=== PATIENT | female | born 1990 | race Caucasian/White ===

== ENCOUNTER 2019-03-27 16:35 | Emergency (ER) | payer OTHER ==
[~2019-03-27] VITALS: Ht 170.2 cm; Wt 122.5 kg
[~2019-03-27 16:35] MED LIST: METFORMIN HCL500 MG PO
--- OUTSIDE RECORDS SUMMARY | 2019-03-27 16:41 | XMS REPORT | Continuity of Care Document ---
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 Name Role Phone [employer] Unavailable Unavailable Problems Problem Status Onset Date Classification Date Reported Comments Source Acute headache 12/08/2018 12/11/2018 [facility] Nausea and vomiting 12/08/2018 12/11/2018 [facility] CHESTPAIN/ DIARREAH Active 12/08/2018 [facility] HEADACHE/VOMITING Active 12/07/2018 [facility] Acute gastroenteritis 10/19/2018 10/22/2018 [facility] Abdominal pain, acute, epigastric 10/19/2018 10/22/2018 [facility] HIGH BP Active 10/19/2018 [facility] Hyperglycemia 10/17/2018 10/20/2018 [facility] Gastroenteritis 10/17/2018 10/20/2018 [facility] Dehydration 10/17/2018 10/20/2018 [facility] VOMITING / STOMACH PAIN Active 10/17/2018 [facility] Complex tear of lateral meniscus, current injury, left knee, initial encounter 08/19/2018 03/05/2019 [facility] Acute upper respiratory infection, unspecified 08/15/2018 02/25/2019 [facility] Pain, chest wall 08/08/2018 02/25/2019 [facility] Acute upper respiratory infection 08/08/2018 02/25/2019 [facility] Viral illness 08/08/2018 02/25/2019 [facility] CHEST PAIN Active 08/08/2018 [facility] LT KNEE (DOS 06/14/18) Active 06/14/2018 [facility] Acute pharyngitis, unspecified 04/18/2018 10/30/2018 [facility] Nasal congestion 04/12/2018 10/30/2018 [facility] Sore throat 04/12/2018 10/30/2018 [facility] SORE THROAT Active 04/12/2018 [facility] Chest pain 01/21/2018 01/24/2018 [facility] Other bursitis of knee, left knee 12/27/2017 03/28/2018 [facility] Viral syndrome 10/28/2017 2018 [facility] Pyelonephritis 10/28/2017 2018 [facility] COUGH Active 10/27/2017 [facility] Contusion of left knee, initial encounter 10/25/2017 01/26/2018 [facility] Discharge Diagnosis: Left flank pain 08/03/2017 08/06/2017 [facility] Discharge Diagnosis: Acute lower urinary tract infection 08/03/2017 08/06/2017 [facility] ABD PAIN Active 08/02/2017 [facility] Discharge Diagnosis: Left knee pain 07/11/2017 07/14/2017 [facility] Discharge Diagnosis: Abrasion, left knee, initial encounter 07/11/2017 07/14/2017 [facility] Discharge Diagnosis: Left ankle pain 07/11/2017 07/14/2017 [facility] LT KNEE Active 07/10/2017 [facility] LEFT KNEE Active 07/10/2017 [facility] LEFT LEG PAIN Active 07/10/2017 [facility] Discharge Diagnosis: Abdominal pain 04/23/2017 04/26/2017 [facility] Discharge Diagnosis: Strep pharyngitis 01/11/2017 01/14/2017 [facility] Discharge Diagnosis: Influenza B 01/11/2017 01/14/2017 [facility] Discharge Diagnosis: Abdominal pain in female 01/11/2017 01/14/2017 [facility] COUGH/CONGESTION Active 01/10/2017 [facility] FLANK PAIN Active 12/17/2016 [facility] Discharge Diagnosis: Abdominal pain in female. 12/03/2016 12/06/2016 [facility] SIDE PAIN Active 12/02/2016 [facility] Discharge Diagnosis: Hyperglycemia, unspecified 03/17/2016 03/20/2016 [facility] Discharge Diagnosis: Headache 03/17/2016 03/20/2016 [facility] Discharge Diagnosis: Essential hypertension 03/17/2016 03/20/2016 [facility] 490 - BRONCHITIS NOS Active 01/07/2012 SIENNA Gaoadena Final: Episodic tension-type headache, intractable 03/20/2016 [facility] Final: Dehydration 03/20/2016 [facility] Final: Type 1 diabetes mellitus with hyperglycemia 03/20/2016 [facility] Final: Essential hypertension 03/20/2016 [facility] Abdominal pain in female Resolved Problem 03/05/2019 GERMÁN Hutchison,[facility] Diabetes Resolved Problem 03/05/2019 GERMÁN Hutchison,[facility] H/O: HTN (Confirmed) Resolved Problem 03/05/2019 GERMÁN Hutchison,[facility] Bucket-handle tear of lateral meniscus, current injury, left knee, initial encounter 01/26/2018 SIENNA Hutchison Viral infection, unspecified 02/25/2019 [facility] Tubulo-interstitial nephritis, not specified as acute or chronic 2018 [facility] Essential hypertension 10/30/2018 [facility] Unspecified mononeuropathy of left lower limb 03/05/2019 [facility] Pain in left knee 03/05/2019 [facility] Other chest pain 02/25/2019 [facility] Type 2 diabetes mellitus without complications 02/25/2019 [facility] 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 10/30/2018 [facility] Medications Medication Details Route Status Patient Instructions Ordering Provider Order Date Source Metoclopramide 10 MG Oral Tablet [Reglan] 10 mg=1 tab, PO, QID-Before Meals, PRN nausea and vomiting, X 10 day, # 40 tab, 0 Refill(s) Active 12/09/2018 [facility] Tylenol 975 mg, Route: PO, Drug form: TAB, ONCE, Dosing Weight 113.636, kg, Priority: STAT, Start date: 12/08/18 19:42:00 CDT, Stop date: 12/08/18 19:42:00 CDT Inactive 12/09/2018 [facility] Compazine 30 mg, Route: IV, ONCE, Dosing Weight 113.636, kg, Start date: 12/08/18 19:42:00 CDT, Stop date: 12/08/18 19:42:00 CDT Inactive 12/09/2018 [facility] Ketorolac 30 mg, 1 mL, Route: IVP, Drug form: INJ, ONCE, Dosing Weight 113.636, kg, Priority: STAT, Start date: 12/08/18 14:20:00 CDT, Stop date: 12/08/18 14:20:00 CDTNotes: (Same as:Toradol) IV bolus must be given >15 seconds. Give IM administration slowly and deeply into the muscle. Not for use > 4 days MEDICATION WASTE Product Size: 30 mg Product Wasted: ___ mg Inactive 12/08/2018 [facility] NS (Bolus) IV 1,000 mL, 1,000 ml/hr, Infuse Over: 1 hr, Route: IV, 1,000, Drug form: INJ, ONCE, Priority: STAT, Dosing Weight 113.636 kg, Start date: 12/08/18 14:19:00 CDT, Stop date: 12/08/18 14:19:00 CDT Inactive 12/08/2018 [facility] Zofran 4 mg, 2 mL, Route: IVP, Drug form: INJ, ONCE, Dosing Weight 113.636, kg, Priority: STAT, Start date: 12/08/18 14:19:00 CDT, Stop date: 12/08/18 14:19:00 CDTNotes: (Same as: Zofran) MEDICATION WASTE Product Size: 4 mg Product Wasted: ___ mg Inactive 12/08/2018 [facility] Acetaminophen 300 MG / Codeine Phosphate 30 MG Oral Tablet [Tylenol with Codeine #3] 1 tab, PO, Q6H, PRN Pain, no Driving while under the influence of this medication, X 3 day, # 12 tab, 0 Refill(s) Active 10/19/2018 [facility] Acetaminophen 325 MG / Hydrocodone Bitartrate 5 MG Oral Tablet [Stonewall 5/325] 1 tab, Route: PO, Drug Form: TAB, Dosing Weight 109.091, kg, ONCE, STAT, Start date: 10/19/18 16:10:00 BINDERY WORKER, Stop date: 10/19/18 16:10:00 CSTNotes: (Same as: Stonewall 325/5) Do not exceed 4gm/day of acetaminophen. Inactive 10/19/2018 [facility] Sodium Chloride 0.9% (Bolus) IV 1,000 mL, 1000 ml/hr, Infuse Over: 1 hr, Route: IV, 1,000, Drug form: INJ, ONCE, Priority: STAT, Dosing Weight 109.091 kg, Start date: 10/19/18 15:41:00 BINDERY WORKER, Stop date: 10/19/18 15:41:00 BINDERY WORKER Inactive 10/19/2018 [facility] Morphine 4 mg, 1 mL, Route: IVP, Drug form: SOLN, ONCE, Dosing Weight 109.091, kg, Priority: STAT, Start date: 10/19/18 13:47:00 BINDERY WORKER, Stop date: 10/19/18 13:47:00 CSTNotes: (Same as:MORPhine Sulfate) Inactive 10/19/2018 [facility] Zofran 4 mg, Route: IVP, Drug form: INJ, ONCE, Dosing Weight 109.091, kg, Priority: STAT, Start date: 10/19/18 13:05:00 BINDERY WORKER, Stop date: 10/19/18 13:05:00 BINDERY WORKER Inactive 10/19/2018 [facility] Sodium Chloride 0.9% (Bolus) IV 1,000 mL, Infuse Over: 1 hr, Route: IV, ONCE, Priority: STAT, Dosing Weight 109.091 kg, Start date: 10/19/18 13:00:00 BINDERY WORKER, Stop date: 10/19/18 13:00:00 BINDERY WORKER Inactive 10/19/2018 [facility] Metoclopramide 5 MG Oral Tablet [Reglan] 5 mg=1 tab, PO, Q6H, X 7 day, # 28 tab, 0 Refill(s) Active 10/17/2018 [facility] Insulin regular 5 unit, 0.05 mL, Route: SUB-Q, Drug form: INJ, ONCE, Dosing Weight 109.091, kg, Priority: STAT, Start date: 10/17/18 11:18:00 BINDERY WORKER, Stop date: 10/17/18 11:18:00 CSTNotes: (Same as: Humulin R and NovoLIN R) WASTE: F/P - Black; E - Municipal Trash Bin (Do not shake) Inactive 10/17/2018 [facility] Morphine 2 mg, Route: IVP, ONCE, Dosing Weight 109.091, kg, Priority: STAT, Start date: 10/17/18 10:23:00 BINDERY WORKER, Stop date: 10/17/18 10:23:00 BINDERY WORKER Inactive 10/17/2018 [facility] Metoclopramide 10 mg, 2 mL, Route: IVP, Drug form: INJ, ONCE, Dosing Weight 109.091, kg, Priority: STAT, Start date: 10/17/18 9:08:00 BINDERY WORKER, Stop date: 10/17/18 9:08:00 CSTNotes: (Same as: Reglan) Inactive 10/17/2018 [facility] GI cocktail (aluminum hydroxide/magnesium hydroxide/lidocaine/simethicone) 30 mL, Route: PO, Dosing Weight 109.091, kg, ONCE, STAT, Start date: 10/17/18 9:08:00 BINDERY WORKER, Stop date: 10/17/18 9:08:00 BINDERY WORKER Inactive 10/17/2018 [facility] pantoprazole 40 mg, Route: IVP, Drug form: INJ, ONCE, Dosing Weight 109.091, kg, For IV push reconstitute with 10 ml 0.9% sodium chloride and push over at least 3 minutes, Priority: STAT, Start date: 10/17/18 9:08:00 BINDERY WORKER, Stop date: 10/17/18 9:08:00 CSTNotes: For IV push reconstitute with 10 ml 0.9% sodium chloride and push over 2 minutes. (Same as: Protonix) Inactive 10/17/2018 [facility] Sodium Chloride 0.9% (Bolus) IV 1,000 mL, 1000 ml/hr, Infuse Over: 1 hr, Route: IV, 1,000, Drug form: INJ, ONCE, Priority: STAT, Dosing Weight 109.091 kg, Start date: 10/17/18 9:08:00 BINDERY WORKER, Stop date: 10/17/18 9:08:00 BINDERY WORKER Inactive 10/17/2018 [facility] Saline Flush 0.9% 10 mL, Route: IVP, Drug Form: INJ, Dosing Weight 109.091, kg, PRN, PRN Line Flush, Start date: 10/17/18 9:08:00 BINDERY WORKER, Duration: 30 day, Stop date: 11/16/18 9:07:00 CSTNotes: (Same as: BD Posiflush) Inactive 10/17/2018 [facility] NS (Bolus) IV 1,000 mL, 1,000 ml/hr, Infuse Over: 1 hr, Route: IV, 1,000, Drug form: INJ, ONCE, Priority: STAT, Dosing Weight 109.091 kg, Start date: 10/17/18 9:08:00 BINDERY WORKER, Stop date: 10/17/18 9:08:00 BINDERY WORKER Inactive 10/17/2018 [facility] 12 HR Fexofenadine hydrochloride 60 MG / Pseudoephedrine Hydrochloride 120 MG Extended Release Tablet [Viviana-D 12 Hour] 1 tab, PO, Q12H, X 5 day, # 10 tab, 0 Refill(s) No Longer Active 08/09/2018 [facility] ibuprofen 600 mg oral tablet 600 mg=1 tab, PO, Q6H, PRN Pain, take with food, X 3 day, # 15 tab, 0 Refill(s) No Longer Active 08/09/2018 [facility] Motrin 800 mg, 2 tab, Route: PO, Drug form: TAB, ONCE, Dosing Weight 127.273, kg, Priority: STAT, Start date: 08/08/18 16:21:00 BINDERY WORKER, Stop date: 08/08/18 16:21:00 CSTNotes: (Same as: Motrin) "Do Not Crush" Give with food. Inactive 08/08/2018 [facility] Sodium Chloride 0.9% (Bolus) IV 1,000 mL, 1,000 ml/hr, Infuse Over: 1 hr, Route: IV, 1,000, Drug form: INJ, ONCE, Priority: STAT, Dosing Weight 127.273 kg, Start date: 08/08/18 15:58:00 BINDERY WORKER, Stop date: 08/08/18 15:58:00 BINDERY WORKER Inactive 08/08/2018 [facility] Fluticasone propionate 0.05 MG/ACTUAT Metered Dose Nasal Reading [Flonase] 2 spray, NASAL, Daily, in each nostril, # 16 gm, 1 Refill(s) Active 04/12/2018 [facility] benzonatate 200 MG Oral Capsule [Tessalon] 200 mg=1 cap, PO, TID, X 10 day, # 30 cap, 0 Refill(s) No Longer Active 04/12/2018 [facility] Dexamethasone 10 mg, 2.5 mL, Route: IM, Drug form: INJ, ONCE, Dosing Weight 113.636, kg, Priority: STAT, Start date: 04/12/18 16:34:00 CDT, Stop date: 04/12/18 16:34:00 CDT Inactive 04/12/2018 [facility] Naproxen 500 MG Oral Tablet [Naprosyn] 500 mg=1 tab, PO, BID, PRN Pain, X 7 day, # 14 tab, 0 Refill(s), Pharmacy: [facility]/pharmacy #[id number] Active 01/21/2018 [facility] NS (Bolus) IV 1,000 mL, 1,000 ml/hr, Infuse Over: 1 hr, Route: IV, ONCE, Priority: STAT, Dosing Weight 113.636 kg, Start date: 01/21/18 7:26:00 CDT, Stop date: 01/21/18 7:26:00 CDT Inactive 01/21/2018 [facility] Ketorolac 30 mg, Route: IVP, Drug form: INJ, ONCE, Dosing Weight 113.636, kg, Priority: STAT, Start date: 01/21/18 7:25:00 CDT, Stop date: 01/21/18 7:25:00 CDT Inactive 01/21/2018 [facility] Saline Flush 0.9% 10 mL, Route: IVP, Drug Form: INJ, Dosing Weight 113.636, kg, PRN, PRN Line Flush, Start date: 01/21/18 4:34:00 CDT, Duration: 30 day, Stop date: 02/20/18 4:33:00 CDTNotes: (Same as: BD Posiflush) Inactive 01/21/2018 [facility] Fluconazole 150 MG Oral Tablet [Diflucan] 150 mg=1 tab, PO, ONCE, # 1 tab, 0 Refill(s) Active 10/28/2017 [facility] tramadol hydrochloride 50 MG Oral Tablet 50 mg=1 tab, PO, Q6H, PRN Pain, X 3 day, # 12 tab, 0 Refill(s) No Longer Active 10/28/2017 [facility] Cephalexin 500 MG Oral Capsule [Keflex] 500 mg=1 cap, PO, QID, X 14 day, # 56 cap, 0 Refill(s) No Longer Active 10/28/2017 [facility] benzonatate 100 MG Oral Capsule [Tessalon Perles] 100 mg=1 cap, PO, Q8H, PRN cough, do not crush or chew, X 10 day, # 30 cap, 0 Refill(s) No Longer Active 10/28/2017 [facility] Zofran ODT 4 mg, Route: PO, Drug form: TABDIS, ONCE, Dosing Weight 122.727, kg, Priority: STAT, Start date: 10/27/17 23:39:00 BINDERY WORKER, Stop date: 10/27/17 23:39:00 BINDERY WORKER Inactive 10/28/2017 [facility] Acetaminophen 325 MG / Hydrocodone Bitartrate 7.5 MG Oral Tablet [Stonewall 7.5/325] 1 tab, Route: PO, Drug Form: TAB, Dosing Weight 122.727, kg, ONCE, STAT, Start date: 10/27/17 23:39:00 BINDERY WORKER, Stop date: 10/27/17 23:39:00 BINDERY WORKER Inactive 10/28/2017 [facility] Sulfamethoxazole 800 MG / Trimethoprim 160 MG Oral Tablet [Bactrim] 1 tab, PO, BID, X 14 day, # 28 tab, 0 Refill(s) Active 08/03/2017 [facility] Ondansetron 4 mg, Route: IVP, Drug form: INJ, ONCE, Dosing Weight 114.545, kg, Priority: STAT, Start date: 08/03/17 3:50:00 BINDERY WORKER, Stop date: 08/03/17 3:50:00 BINDERY WORKER Inactive 08/03/2017 [facility] Morphine 4 mg, Route: IVP, ONCE, Dosing Weight 114.545, kg, Priority: STAT, Start date: 08/03/17 3:50:00 BINDERY WORKER, Stop date: 08/03/17 3:50:00 BINDERY WORKER Inactive 08/03/2017 [facility] Morphine 4 mg, Route: IVP, ONCE, Dosing Weight 114.545, kg, Priority: STAT, Start date: 08/03/17 1:27:00 BINDERY WORKER, Stop date: 08/03/17 1:27:00 BINDERY WORKER Inactive 08/03/2017 [facility] Ondansetron 4 mg, Route: IVP, Drug form: INJ, ONCE, Dosing Weight 114.545, kg, Priority: STAT, Start date: 08/03/17 1:27:00 BINDERY WORKER, Stop date: 08/03/17 1:27:00 BINDERY WORKER Inactive 08/03/2017 [facility] Rocephin 2 gm, Route: IVPB, ONCE, Dosing Weight 114.545, kg, Priority: STAT, Start date: 08/03/17 0:22:00 BINDERY WORKER, Stop date: 08/03/17 0:22:00 BINDERY WORKER, ABX Indication: Urinary Tract InfectionNotes: (Same As: Rocephin). Use with 100 mL NS and infuse over 30 min MEDICATION WASTE Product Size: 2000 mg Product Wasted: ___ mg Inactive 08/03/2017 [facility] Saline Flush 0.9% 10 mL, Route: IVP, Drug Form: INJ, Dosing Weight 114.545, kg, PRN, PRN Line Flush, Start date: 08/02/17 21:33:00 BINDERY WORKER, Duration: 30 day, Stop date: 09/01/17 21:32:00 CSTNotes: (Same as: BD Posiflush) No Longer Active 08/03/2017 [facility] Sodium Chloride 0.9% (Bolus) IV 1,000 mL, 2,000 ml/hr, Infuse Over: 30 minutes, Route: IV, 1,000, Drug form: INJ, ONCE, Priority: STAT, Dosing Weight 114.545 kg, Start date: 08/02/17 21:33:00 BINDERY WORKER, Stop date: 08/02/17 21:33:00 BINDERY WORKER No Longer Active 08/03/2017 [facility] ibuprofen 600 mg oral tablet 600 mg=1 tab, PO, Q6H, PRN Pain or Fever, Take with food, X 10 day, # 40 tab, 0 Refill(s) Active 07/11/2017 [facility] Acetaminophen 325 MG / Hydrocodone Bitartrate 10 MG Oral Tablet [Stonewall 10/325] 1 tab, Route: PO, Drug Form: TAB, Dosing Weight 115.909, kg, ONCE, STAT, Start date: 07/10/17 21:45:00 CDT, Stop date: 07/10/17 21:45:00 CDTNotes: Do not exceed 4gm/day of acetaminophen. (Same as: Stonewall 325/10) No Longer Active 07/11/2017 [facility] tramadol hydrochloride 50 MG Oral Tablet [Ultram] 50 mg=1 tab, PO, Q4H, PRN pain, X 3 day, # 20 tab, 0 Refill(s) Active 04/23/2017 [facility] Zofran 4 mg, Route: IVP, Drug form: INJ, ONCE, Dosing Weight 118.182, kg, Priority: STAT, Start date: 04/23/17 4:05:00 CDT, Stop date: 04/23/17 4:05:00 CDT Inactive 04/23/2017 [facility] Morphine 4 mg, Route: IVP, ONCE, Dosing Weight 118.182, kg, Priority: STAT, Start date: 04/23/17 4:05:00 CDT, Stop date: 04/23/17 4:05:00 CDT Inactive 04/23/2017 [facility] NS (Bolus) IV 1,000 mL, 1,000 ml/hr, Infuse Over: 1 hr, Route: IV, 1,000, Drug form: INJ, ONCE, Priority: STAT, Dosing Weight 118.182 kg, Start date: 04/23/17 0:40:00 CDT, Duration: 1 doses or times, Stop date: 0:40:00 CDT Inactive 04/23/2017 [facility] Zofran 4 mg, 2 mL, Route: IVP, Drug form: INJ, ONCE, Dosing Weight 118.182, kg, Priority: STAT, Start date: 04/23/17 0:40:00 CDT, Stop date: 04/23/17 0:40:00 CDTNotes: (Same as: Zofran) MEDICATION WASTE Product Size: 4 mg Product Wasted: ___ mg Inactive 04/23/2017 [facility] Morphine 4 mg, 1 mL, Route: IVP, Drug form: SOLN, ONCE, Dosing Weight 118.182, kg, Priority: STAT, Start date: 04/23/17 0:40:00 CDT, Stop date: 04/23/17 0:40:00 CDTNotes: (Same as:MORPhine Sulfate) Inactive 04/23/2017 [facility] Saline Flush 0.9% 10 mL, Route: IVP, Drug Form: INJ, Dosing Weight 118.182, kg, PRN, PRN Line Flush, Start date: 04/22/17 22:57:00 CDT, Duration: 30 day, Stop date: 05/22/17 22:56:00 CDTNotes: (Same as: BD Posiflush) No Longer Active 04/23/2017 [facility] Motrin 800 mg oral tablet 800 mg=1 tab, PO, Q8H, PRN Pain, Take with food, X 5 day, # 15 tab, 0 Refill(s) Active 01/11/2017 [facility] Amoxicillin 875 MG / Clavulanate 125 MG Oral Tablet [Augmentin 875-mg] 875 mg=1 tab, PO, Q12H, X 7 day, # 14 tab, 0 Refill(s) Active 01/11/2017 [facility] Sodium Chloride 0.154 MEQ/ML Injectable Solution 1,000 mL, 1,000 ml/hr, Infuse Over: 1 hr, Route: IV, 1,000, Drug form: INJ, ONCE, Priority: STAT, Dosing Weight 118.182 kg, Start date: 01/10/17 21:26:00 CDT, Duration: 1 doses or times, Stop date: 01/10/17 21:26:00 CDT Inactive 01/11/2017 [facility] Ibuprofen 800 mg, 2 tab, Route: PO, Drug form: TAB, ONCE, Dosing Weight 118.182, kg, Priority: STAT, Start date: 01/10/17 19:25:00 CDT, Stop date: 01/10/17 19:25:00 CDTNotes: (Same as: Motrin) "Do Not Crush" Give with food. Inactive 01/11/2017 [facility] Zofran 4 mg, 2 mL, Route: IVP, Drug form: INJ, ONCE, Dosing Weight 118.182, kg, Priority: STAT, Start date: 01/10/17 19:25:00 CDT, Stop date: 01/10/17 19:25:00 CDTNotes: (Same as: Zofran) MEDICATION WASTE Product Size: 4 mg Product Wasted: ___ mg Inactive 01/11/2017 [facility] Sodium Chloride 0.154 MEQ/ML Injectable Solution 1,000 mL, 1,000 ml/hr, Infuse Over: 1 hr, Route: IV, 1,000, Drug form: INJ, ONCE, Priority: STAT, Dosing Weight 118.182 kg, Start date: 01/10/17 19:25:00 CDT, Duration: 1 doses or times, Stop date: 01/10/17 19:25:00 CDT Inactive 01/11/2017 [facility] Phenergan 25 mg oral tablet 25 mg=1 tab, PO, Q6H, PRN Nausea, X 4 day, # 15 tab, 0 Refill(s) Active 12/18/2016 [facility] Ranitidine 150 MG Oral Tablet [Zantac] 150 mg=1 tab, PO, BID, # 60 tab, 0 Refill(s) Active 12/18/2016 [facility] Dicyclomine Hydrochloride 20 MG Oral Tablet [Bentyl] 20 mg=1 tab, PO, QID-Before Meals, # 28 tab, 0 Refill(s) Active 12/18/2016 [facility] Ondansetron 4 mg, Route: IVP, Drug form: INJ, ONCE, Dosing Weight 117.273, kg, Priority: STAT, Start date: 12/18/16 2:39:00 CDT, Stop date: 12/18/16 2:39:00 CDT Inactive 12/18/2016 [facility] Morphine 4 mg, Route: IVP, ONCE, Dosing Weight 117.273, kg, Priority: STAT, Start date: 12/18/16 2:39:00 CDT, Stop date: 12/18/16 2:39:00 CDT Inactive 12/18/2016 [facility] Sodium Chloride 0.154 MEQ/ML Injectable Solution 1,000 mL, Infuse Over: 1 hr, Route: IV, ONCE, Priority: STAT, Dosing Weight 117.273 kg, Start date: 12/18/16 2:39:00 CDT, Duration: 1 doses or times, Stop date: 12/18/16 2:39:00 CDT Inactive 12/18/2016 [facility] Saline Flush 0.9% 10 mL, Route: IVP, Drug Form: INJ, Dosing Weight 117.273, kg, PRN, PRN Line Flush, Start date: 12/18/16 2:31:00 CDT, Duration: 30 day, Stop date: 01/17/17 2:30:00 CDTNotes: (Same as: BD Posiflush) Inactive 12/18/2016 [facility] tramadol hydrochloride 50 MG Oral Tablet 50 mg=1 tab, PO, Q4H, PRN as needed for pain, X 7 day, # 24 tab, 0 Refill(s) Active 12/03/2016 [facility] Rocephin 250 mg, Route: IM, Drug form: PDR/INJ, ONCE, Dosing Weight 117.273, kg, Priority: STAT, Start date: 12/03/16 6:22:00 CDT, Stop date: 12/03/16 6:22:00 CDT Inactive 12/03/2016 [facility] Azithromycin 1,000 mg, Route: PO, Drug form: TAB, ONCE, Dosing Weight 117.273, kg, Start date: 12/03/16 6:22:00 CDT, Stop date: 12/03/16 6:22:00 CDT Inactive 12/03/2016 [facility] Flagyl 2,000 mg, Route: PO, ONCE, Dosing Weight 117.273, kg, Priority: STAT, Start date: 12/03/16 6:22:00 CDT, Stop date: 12/03/16 6:22:00 CDT Inactive 12/03/2016 [facility] Lidocaine 1 mL, Route: IM, ONCE, Dosing Weight 117.273, kg, Start date: 12/03/16 6:22:00 CDT, Stop date: 12/03/16 6:22:00 CDT Inactive 12/03/2016 [facility] Morphine 4 mg, Route: IVP, ONCE, Dosing Weight 117.273, kg, Priority: STAT, Start date: 12/03/16 4:40:00 CDT, Stop date: 12/03/16 4:40:00 CDT Inactive 12/03/2016 [facility] Morphine 4 mg, Route: IVP, ONCE, Dosing Weight 117.273, kg, Priority: STAT, Start date: 12/03/16 1:46:00 CDT, Stop date: 12/03/16 1:46:00 CDT Inactive 12/03/2016 [facility] Ondansetron 4 mg, Route: IVP, ONCE, Dosing Weight 117.273, kg, Priority: STAT, Start date: 12/03/16 1:46:00 CDT, Stop date: 12/03/16 1:46:00 CDT Inactive 12/03/2016 [facility] Sodium Chloride 0.154 MEQ/ML Injectable Solution 1,000 mL, 2,000 ml/hr, Infuse Over: 30 minutes, Route: IV, ONCE, Priority: STAT, Dosing Weight 117.273 kg, Start date: 12/03/16 1:46:00 CDT, Duration: 1 doses or times, Stop date: 12/03/16 1:46:00 CDT Inactive 12/03/2016 [facility] Saline Flush 0.9% 10 mL, Route: IVP, Drug Form: INJ, Dosing Weight 117.273, kg, PRN, PRN Line Flush, Start date: 12/03/16 1:46:00 CDT, Duration: 30 day, Stop date: 01/02/17 1:45:00 CDTNotes: (Same as: BD Posiflush) Inactive 12/03/2016 [facility] Reglan 10 mg, Route: IVP, Drug form: INJ, ONCE, Dosing Weight 113.636, kg, Priority: STAT, Start date: 03/17/16 11:36:00 CDT, Stop date: 03/17/16 11:36:00 CDT Inactive 03/17/2016 [facility] Ketorolac 30 mg, Route: IVP, Drug form: INJ, ONCE, Dosing Weight 113.636, kg, Priority: STAT, Start date: 03/17/16 11:36:00 CDT, Stop date: 03/17/16 11:36:00 CDT Inactive 03/17/2016 [facility] Insulin regular 5 unit, Route: IV, ONCE, Dosing Weight 113.636, kg, Priority: STAT, Start date: 03/17/16 11:18:00 CDT, Stop date: 03/17/16 11:18:00 CDT Inactive 03/17/2016 [facility] Sodium Chloride 0.154 MEQ/ML Injectable Solution 1,000 mL, 1,000 ml/hr, Infuse Over: 1 Hour, Route: IV, ONCE, Priority: STAT, Dosing Weight 113.636 kg, Start date: 03/17/16 10:53:00 CDT, Duration: 1 doses or times, Stop date: 03/17/16 10:53:00 CDT Inactive 03/17/2016 [facility] Dextrose 50% Syringe 12.5 gm, 25 mL, Route: IVP, Drug Form: INJ, Dosing Weight 113.636, kg, PRN, PRN Blood Glucose Results, Start date: 03/17/16 10:19:00 CDT, Duration: 30 day, Stop date: 04/16/16 10:18:00 CDT Inactive 03/17/2016 [facility] Glucagon 1 mg, Route: IM, Drug form: PDR/INJ, PRN, Dosing Weight 113.636, kg, PRN Blood Glucose Results, Start date: 03/17/16 10:19:00 CDT, Duration: 30 day, Stop date: 04/16/16 10:18:00 CDT Inactive 03/17/2016 [facility] Saline Flush 0.9% 10 mL, Route: IVP, Drug Form: INJ, Dosing Weight 113.636, kg, PRN, PRN Line Flush, Start date: 03/17/16 10:19:00 CDT, Duration: 30 day, Stop date: 04/16/16 10:18:00 CDTNotes: (Same as: BD Posiflush) Inactive 03/17/2016 [facility] Sodium Chloride 0.154 MEQ/ML Injectable Solution 1,000 mL, 2,000 ml/hr, Infuse Over: 30 MINS, Route: IV, ONCE, Priority: STAT, Dosing Weight 113.636 kg, Start date: 03/17/16 10:19:00 CDT, Duration: 1 doses or times, Stop date: 03/17/16 10:19:00 CDT Inactive 03/17/2016 [facility] Allergies, Adverse Reactions, Alerts Substance Category Reaction Severity Reaction type Status Date Reported Comments Source No Known Medication Allergies Assertion Drug allergy [facility] Immunizations No Data Provided for This Section Results Order Name Results Value Reference Range Date Interpretation Comments Source URINE AND STOOL UA RBC 3 0 - 2 12/08/2018 [facility] URINE AND STOOL UA WBC <1 0 - 5 12/08/2018 [facility] URINE AND STOOL UA Bili Negative *NA* (12/08/18 3:59 PM) Negative 12/08/2018 [facility] URINE AND STOOL UA Glucose 500 mg/dL Negative mg/dL 12/08/2018 [facility] URINE AND STOOL UA Ketones Trace *ABN* (12/08/18 3:59 PM) Negative 12/08/2018 [facility] URINE AND STOOL UA pH 6.0 5.0 - 8.0 12/08/2018 [facility] URINE AND STOOL UA Protein Negative (12/08/18 3:59 PM) Negative 12/08/2018 [facility] URINE AND STOOL UA Nitrite Negative (12/08/18 3:59 PM) Negative 12/08/2018 [facility] URINE AND STOOL UA Blood Negative (12/08/18 3:59 PM) Negative 12/08/2018 [facility] URINE AND STOOL UA Urobilinogen <=1.0 mg/dL 0.1 - 1.0 12/08/2018 [facility] URINE AND STOOL UA Spec Grav 1.039 <=1.030 12/08/2018 [facility] URINE AND STOOL UA Leuk Est Negative (12/08/18 3:59 PM) Negative 12/08/2018 [facility] URINE AND STOOL UA Sq Epi Occasional /LPF Few /LPF 12/08/2018 [facility] URINE AND STOOL UA Turbidity Clear (12/08/18 3:59 PM) Clear 12/08/2018 [facility] URINE AND STOOL UA Color Ltyellow 12/08/2018 [facility] URINE CHEM U Preg Negative (12/08/18 3:59 PM) Negative 12/08/2018 [facility] CHEM PANEL Lipase Lvl 95 73 - 393 12/08/2018 [facility] CHEM PANEL eGFR 119 12/08/2018 Result Comment: The eGFR is calculated using the CKD-EPI formula. In most young, healthy individuals the eGFR will be >90 mL/min/1.73m2. The eGFR declines with age. An eGFR of 60-89 may be normal in some populations, particularly the elderly, for whom the CKD-EPI formula has not been extensively validated. Use of the eGFR is not recommended in the following populations:

Individuals with unstable creatinine concentrations, including patients and those with serious co-morbid conditions.

Patients with extremes in muscle mass or diet.

The data above are obtained from the National Kidney Disease Education Program (NKDEP) which additionally recommends that when the eGFR is used in patients with extremes of body mass index for purposes of drug dosing, the eGFR should be multiplied by the estimated BMI. [facility] CHEM PANEL Bili Total 0.7 0.2 - 1.3 12/08/2018 [facility] CHEM PANEL Alk Phos 94 39 - 136 12/08/2018 [facility] CHEM PANEL Potassium Lvl 4.1 3.5 - 5.1 12/08/2018 [facility] CHEM PANEL Chloride Lvl 101 95 - 109 12/08/2018 [facility] CHEM PANEL Total Protein 8.3 6.4 - 8.4 12/08/2018 [facility] CHEM PANEL Sodium Lvl 138 135 - 145 12/08/2018 [facility] CHEM PANEL CO2 27 24 - 32 12/08/2018 [facility] CHEM PANEL Albumin Lvl 3.8 3.5 - 5.0 12/08/2018 [facility] CHEM PANEL Calcium Lvl 8.9 8.5 - 10.5 12/08/2018 [facility] CHEM PANEL ALT 33 0 - 65 12/08/2018 [facility] CHEM PANEL AST 16 0 - 37 12/08/2018 [facility] CHEM PANEL Creatinine Lvl 0.69 0.50 - 1.40 12/08/2018 [facility] CHEM PANEL BUN 10 7 - 22 12/08/2018 [facility] CHEM PANEL Glucose Lvl 326 70 - 99 12/08/2018 [facility] CHEM PANEL AGAP 14.1 10.0 - 20.0 12/08/2018 [facility] CHEM PANEL Globulin 4.5 2.7 - 4.2 12/08/2018 [facility] CHEM PANEL B/C Ratio 14 6 - 25 12/08/2018 [facility] CHEM PANEL A/G Ratio 0.8 0.7 - 1.6 12/08/2018 [facility] Lymphocytes # 4.0 1.0 - 5.5 12/08/2018 [facility] Neutrophils # 6.8 1.5 - 8.1 12/08/2018 [facility] HEMATOLOGY Basophils 0.5 0.0 - 1.0 12/08/2018 [facility] HEMATOLOGY Eosinophils # 0.5 0.0 - 0.5 12/08/2018 [facility] Basophils # 0.1 0.0 - 0.2 12/08/2018 [facility] Monocytes # 0.5 0.0 - 0.8 12/08/2018 [facility] Lymphocytes 33.6 20.0 - 40.0 12/08/2018 [facility] Monocytes 4.0 2.0 - 12.0 12/08/2018 [facility] Eosinophils 4.4 0.0 - 4.0 12/08/2018 [facility] Segs 57.5 45.0 - 75.0 12/08/2018 [facility] Platelet 392 133 - 450 12/08/2018 [facility] MCHC 33.2 32.0 - 36.0 12/08/2018 [facility] RDW 13.1 11.5 - 14.5 12/08/2018 [facility] MCH 27.5 27.0 - 31.0 12/08/2018 [facility] Hct 46.3 36.0 - 48.0 12/08/2018 [facility] MPV 7.5 7.4 - 10.4 12/08/2018 [facility] Hgb 15.4 12.0 - 16.0 12/08/2018 [facility] MCV 82.8 80.0 - 98.0 12/08/2018 [facility] RBC 5.60 4.20 - 5.40 12/08/2018 [facility] WBC 11.8 3.7 - 10.4 12/08/2018 [facility] URINE AND STOOL UA RBC <1 0 - 2 12/08/2018 [facility] URINE AND STOOL UA [place] Yeast Occasional /HPF None Seen /HPF 12/08/2018 [facility] URINE AND STOOL UA Glucose 500 mg/dL Negative mg/dL 12/08/2018 [facility] URINE AND STOOL UA Sq Epi Occasional /LPF Few /LPF 12/08/2018 [facility] URINE AND STOOL UA WBC <1 0 - 5 12/08/2018 [facility] URINE AND STOOL UA Protein Negative (12/08/18 1:17 AM) Negative 12/08/2018 [facility] URINE AND STOOL UA Bili Negative *NA* (12/08/18 1:17 AM) Negative 12/08/2018 [facility] URINE AND STOOL UA Ketones Negative *NA* (12/08/18 1:17 AM) Negative 12/08/2018 [facility] URINE AND STOOL UA Blood Small *ABN* (12/08/18 1:17 AM) Negative 12/08/2018 [facility] URINE AND STOOL UA Leuk Est Negative (12/08/18 1:17 AM) Negative 12/08/2018 [facility] URINE AND STOOL UA Nitrite Negative (12/08/18 1:17 AM) Negative 12/08/2018 [facility] URINE AND STOOL UA Urobilinogen <=1.0 mg/dL 0.1 - 1.0 12/08/2018 [facility] URINE AND STOOL UA Color Ltyellow 12/08/2018 [facility] URINE AND STOOL UA Spec Grav 1.039 <=1.030 12/08/2018 [facility] URINE AND STOOL UA pH 5.0 5.0 - 8.0 12/08/2018 [facility] URINE AND STOOL UA Turbidity Clear (12/08/18 1:17 AM) Clear 12/08/2018 [facility] URINE AND STOOL UA Urobilinogen <=1.0 mg/dL 0.1 - 1.0 10/19/2018 [facility] URINE AND STOOL UA Sq Epi Many /LPF Few /LPF 10/19/2018 [facility] URINE AND STOOL UA Ketones Negative *NA* (10/19/18 2:14 PM) Negative 10/19/2018 [facility] URINE AND STOOL UA Leuk Est Negative (10/19/18 2:14 PM) Negative 10/19/2018 [facility] URINE AND STOOL UA RBC 5 0 - 2 10/19/2018 [facility] URINE AND STOOL UA WBC 2 0 - 5 10/19/2018 [facility] URINE AND STOOL UA Nitrite Negative (10/19/18 2:14 PM) Negative 10/19/2018 [facility] URINE AND STOOL UA Blood Negative (10/19/18 2:14 PM) Negative 10/19/2018 [facility] URINE AND STOOL UA Bili Negative *NA* (10/19/18 2:14 PM) Negative 10/19/2018 [facility] URINE AND STOOL UA pH 5.0 5.0 - 8.0 10/19/2018 [facility] URINE AND STOOL UA Spec Grav 1.039 <=1.030 10/19/2018 [facility] URINE AND STOOL UA Turbidity Slight *ABN* (10/19/18 2:14 PM) Clear 10/19/2018 [facility] URINE AND STOOL UA Protein Negative (10/19/18 2:14 PM) Negative 10/19/2018 [facility] URINE AND STOOL UA Glucose 500 mg/dL Negative mg/dL 10/19/2018 [facility] URINE AND STOOL UA Color Ltyellow 10/19/2018 [facility] CARDIAC ENZYMES Troponin-I <0.02 0.00 - 0.40 10/19/2018 [facility] CHEM PANEL Lipase Lvl 103 73 - 393 10/19/2018 [facility] CHEM PANEL eGFR 109 10/19/2018 Result Comment: The eGFR is calculated using the CKD-EPI formula. In most young, healthy individuals the eGFR will be >90 mL/min/1.73m2. The eGFR declines with age. An eGFR of 60-89 may be normal in some populations, particularly the elderly, for whom the CKD-EPI formula has not been extensively validated. Use of the eGFR is not recommended in the following populations:

Individuals with unstable creatinine concentrations, including patients and those with serious co-morbid conditions.

Patients with extremes in muscle mass or diet.

The data above are obtained from the National Kidney Disease Education Program (NKDEP) which additionally recommends that when the eGFR is used in patients with extremes of body mass index for purposes of drug dosing, the eGFR should be multiplied by the estimated BMI. [facility] CHEM PANEL Albumin Lvl 3.3 3.5 - 5.0 10/19/2018 [facility] CHEM PANEL ALT 28 0 - 65 10/19/2018 [facility] CHEM PANEL Bili Total 0.3 0.2 - 1.3 10/19/2018 [facility] CHEM PANEL AST 23 0 - 37 10/19/2018 [facility] CHEM PANEL Alk Phos 80 39 - 136 10/19/2018 [facility] CHEM PANEL Potassium Lvl 4.1 3.5 - 5.1 10/19/2018 [facility] CHEM PANEL Sodium Lvl 138 135 - 145 10/19/2018 [facility] CHEM PANEL CO2 23 24 - 32 10/19/2018 [facility] CHEM PANEL Chloride Lvl 103 95 - 109 10/19/2018 [facility] CHEM PANEL Calcium Lvl 8.5 8.5 - 10.5 10/19/2018 [facility] CHEM PANEL Total Protein 7.6 6.4 - 8.4 10/19/2018 [facility] CHEM PANEL Glucose Lvl 340 70 - 99 10/19/2018 [facility] CHEM PANEL Creatinine Lvl 0.75 0.50 - 1.40 10/19/2018 [facility] CHEM PANEL BUN 9 7 - 22 10/19/2018 [facility] CHEM PANEL Globulin 4.3 2.7 - 4.2 10/19/2018 [facility] CHEM PANEL AGAP 16.1 10.0 - 20.0 10/19/2018 [facility] CHEM PANEL B/C Ratio 12 6 - 25 10/19/2018 [facility] CHEM PANEL A/G Ratio 0.8 0.7 - 1.6 10/19/2018 [facility] ENDOCRINOLOGY S Preg Negative *NA* (10/19/18 12:51 PM) Negative 10/19/2018 [facility] HEMATOLOGY Lymphocytes # 4.6 1.0 - 5.5 10/19/2018 [facility] HEMATOLOGY Eosinophils # 1.5 0.0 - 0.5 10/19/2018 [facility] HEMATOLOGY Basophils # 0.2 0.0 - 0.2 10/19/2018 [facility] HEMATOLOGY Neutrophils # 10.0 1.5 - 8.1 10/19/2018 [facility] HEMATOLOGY Monocytes # 0.7 0.0 - 0.8 10/19/2018 [facility] HEMATOLOGY Basophils 0.9 0.0 - 1.0 10/19/2018 [facility] HEMATOLOGY Eosinophils 8.8 0.0 - 4.0 10/19/2018 [facility] HEMATOLOGY Monocytes 4.3 2.0 - 12.0 10/19/2018 [facility] HEMATOLOGY Lymphocytes 26.9 20.0 - 40.0 10/19/2018 [facility] HEMATOLOGY Segs 59.1 45.0 - 75.0 10/19/2018 [facility] HEMATOLOGY Platelet 366 133 - 450 10/19/2018 [facility] HEMATOLOGY MPV 7.1 7.4 - 10.4 10/19/2018 [facility] HEMATOLOGY MCHC 32.7 32.0 - 36.0 10/19/2018 [facility] HEMATOLOGY RDW 13.0 11.5 - 14.5 10/19/2018 [facility] HEMATOLOGY MCH 27.3 27.0 - 31.0 10/19/2018 [facility] HEMATOLOGY Hgb 13.8 12.0 - 16.0 10/19/2018 [facility] HEMATOLOGY MCV 83.7 80.0 - 98.0 10/19/2018 [facility] HEMATOLOGY Hct 42.2 36.0 - 48.0 10/19/2018 [facility] HEMATOLOGY RBC 5.05 4.20 - 5.40 10/19/2018 [facility] WBC 16.9 3.7 - 10.4 10/19/2018 [facility] CHEM PANEL Magnesium Lvl 1.9 1.8 - 2.4 10/17/2018 [facility] CHEM PANEL Lipase Lvl 91 73 - 393 10/17/2018 [facility] CHEM PANEL eGFR 120 10/17/2018 Result Comment: The eGFR is calculated using the CKD-EPI formula. In most young, healthy individuals the eGFR will be >90 mL/min/1.73m2. The eGFR declines with age. An eGFR of 60-89 may be normal in some populations, particularly the elderly, for whom the CKD-EPI formula has not been extensively validated. Use of the eGFR is not recommended in the following populations:

Individuals with unstable creatinine concentrations, including patients and those with serious co-morbid conditions.

Patients with extremes in muscle mass or diet.

The data above are obtained from the National Kidney Disease Education Program (NKDEP) which additionally recommends that when the eGFR is used in patients with extremes of body mass index for purposes of drug dosing, the eGFR should be multiplied by the estimated BMI. [facility] CHEM PANEL Alk Phos 96 39 - 136 10/17/2018 [facility] CHEM PANEL Chloride Lvl 101 95 - 109 10/17/2018 [facility] CHEM PANEL CO2 23 24 - 32 10/17/2018 [facility] CHEM PANEL Calcium Lvl 8.8 8.5 - 10.5 10/17/2018 [facility] CHEM PANEL Total Protein 8.2 6.4 - 8.4 10/17/2018 [facility] CHEM PANEL ALT 28 0 - 65 10/17/2018 [facility] CHEM PANEL AST 13 0 - 37 10/17/2018 [facility] CHEM PANEL Albumin Lvl 3.6 3.5 - 5.0 10/17/2018 [facility] CHEM PANEL Bili Total 0.7 0.2 - 1.3 10/17/2018 [facility] CHEM PANEL Sodium Lvl 137 135 - 145 10/17/2018 [facility] CHEM PANEL Potassium Lvl 3.9 3.5 - 5.1 10/17/2018 [facility] CHEM PANEL Glucose Lvl 367 70 - 99 10/17/2018 [facility] CHEM PANEL BUN 13 7 - 22 10/17/2018 [facility] CHEM PANEL Creatinine Lvl 0.67 0.50 - 1.40 10/17/2018 [facility] CHEM PANEL AGAP 16.9 10.0 - 20.0 10/17/2018 [facility] CHEM PANEL B/C Ratio 19 6 - 25 10/17/2018 [facility] CHEM PANEL Globulin 4.6 2.7 - 4.2 10/17/2018 [facility] CHEM PANEL A/G Ratio 0.8 0.7 - 1.6 10/17/2018 [facility] ENDOCRINOLOGY S Preg Negative *NA* (10/17/18 9:25 AM) Negative 10/17/2018 [facility] HEMATOLOGY Basophils 0.4 0.0 - 1.0 10/17/2018 [facility] HEMATOLOGY Monocytes 4.3 2.0 - 12.0 10/17/2018 [facility] HEMATOLOGY Eosinophils 3.5 0.0 - 4.0 10/17/2018 [facility] HEMATOLOGY Monocytes # 0.8 0.0 - 0.8 10/17/2018 [facility] HEMATOLOGY Lymphocytes # 3.5 1.0 - 5.5 10/17/2018 [facility] HEMATOLOGY Eosinophils # 0.7 0.0 - 0.5 10/17/2018 [facility] HEMATOLOGY Basophils # 0.1 0.0 - 0.2 10/17/2018 [facility] HEMATOLOGY Neutrophils # 13.5 1.5 - 8.1 10/17/2018 [facility] HEMATOLOGY Lymphocytes 18.9 20.0 - 40.0 10/17/2018 [facility] HEMATOLOGY Segs 72.9 45.0 - 75.0 10/17/2018 [facility] HEMATOLOGY RBC 5.69 4.20 - 5.40 10/17/2018 [facility] HEMATOLOGY Hgb 15.6 12.0 - 16.0 10/17/2018 [facility] HEMATOLOGY WBC 18.5 3.7 - 10.4 10/17/2018 [facility] HEMATOLOGY Hct 47.2 36.0 - 48.0 10/17/2018 [facility] HEMATOLOGY MPV 7.4 7.4 - 10.4 10/17/2018 [facility] HEMATOLOGY RDW 13.2 11.5 - 14.5 10/17/2018 [facility] HEMATOLOGY Platelet 442 133 - 450 10/17/2018 [facility] HEMATOLOGY MCHC 33.1 32.0 - 36.0 10/17/2018 [facility] HEMATOLOGY MCV 83.0 80.0 - 98.0 10/17/2018 [facility] HEMATOLOGY MCH 27.5 27.0 - 31.0 10/17/2018 [facility] URINE AND STOOL UA RBC 3 0 - 2 10/17/2018 [facility] URINE AND STOOL UA Mucus Few /LPF None Seen /LPF 10/17/2018 [facility] URINE AND STOOL UA Bacteria Occasional /HPF None Seen /HPF 10/17/2018 [facility] URINE AND STOOL UA Glucose 500 mg/dL Negative mg/dL 10/17/2018 [facility] URINE AND STOOL UA Sq Epi Few /LPF Few /LPF 10/17/2018 [facility] URINE AND STOOL UA Nitrite Negative (10/17/18 9:25 AM) Negative 10/17/2018 [facility] URINE AND STOOL UA Leuk Est Negative (10/17/18 9:25 AM) Negative 10/17/2018 [facility] URINE AND STOOL UA WBC 2 0 - 5 10/17/2018 [facility] URINE AND STOOL UA Blood Negative (10/17/18 9:25 AM) Negative 10/17/2018 [facility] URINE AND STOOL UA Bili Negative *NA* (10/17/18 9:25 AM) Negative 10/17/2018 [facility] URINE AND STOOL UA Ketones 20 mg/dL Negative mg/dL 10/17/2018 [facility] URINE AND STOOL UA Urobilinogen <=1.0 mg/dL 0.1 - 1.0 10/17/2018 [facility] URINE AND STOOL UA Turbidity Clear (10/17/18 9:25 AM) Clear 10/17/2018 [facility] URINE AND STOOL UA Color Ltyellow 10/17/2018 [facility] URINE AND STOOL UA Spec Grav 1.040 <=1.030 10/17/2018 [facility] URINE AND STOOL UA Protein Negative (10/17/18 9:25 AM) Negative 10/17/2018 [facility] URINE AND STOOL UA pH 5.0 5.0 - 8.0 10/17/2018 [facility] CHEM PANEL Globulin 4.0 2.7 - 4.2 08/08/2018 [facility] CHEM PANEL A/G Ratio 0.8 0.7 - 1.6 08/08/2018 [facility] CHEM PANEL B/C Ratio 12 6 - 25 08/08/2018 [facility] CHEM PANEL AGAP 15.2 10.0 - 20.0 08/08/2018 [facility] CHEM PANEL eGFR 105 08/08/2018 Result Comment: The eGFR is calculated using the CKD-EPI formula. In most young, healthy individuals the eGFR will be >90 mL/min/1.73m2. The eGFR declines with age. An eGFR of 60-89 may be normal in some populations, particularly the elderly, for whom the CKD-EPI formula has not been extensively validated. Use of the eGFR is not recommended in the following populations:

Individuals with unstable creatinine concentrations, including patients and those with serious co-morbid conditions.

Patients with extremes in muscle mass or diet.

The data above are obtained from the National Kidney Disease Education Program (NKDEP) which additionally recommends that when the eGFR is used in patients with extremes of body mass index for purposes of drug dosing, the eGFR should be multiplied by the estimated BMI. [facility] CHEM PANEL Bili Total 0.5 0.2 - 1.3 08/08/2018 [facility] CHEM PANEL Alk Phos 90 39 - 136 08/08/2018 [facility] CHEM PANEL Total Protein 7.3 6.4 - 8.4 08/08/2018 [facility] CHEM PANEL Sodium Lvl 135 135 - 145 08/08/2018 [facility] CHEM PANEL Chloride Lvl 100 95 - 109 08/08/2018 [facility] CHEM PANEL CO2 24 24 - 32 08/08/2018 [facility] CHEM PANEL Albumin Lvl 3.3 3.5 - 5.0 08/08/2018 [facility] CHEM PANEL Calcium Lvl 8.6 8.5 - 10.5 08/08/2018 [facility] CHEM PANEL ALT 34 0 - 65 08/08/2018 [facility] CHEM PANEL Potassium Lvl 4.2 3.5 - 5.1 08/08/2018 [facility] CHEM PANEL AST 22 0 - 37 08/08/2018 [facility] CHEM PANEL Glucose Lvl 374 70 - 99 08/08/2018 [facility] CHEM PANEL BUN 9 7 - 22 08/08/2018 [facility] CHEM PANEL Creatinine Lvl 0.77 0.50 - 1.40 08/08/2018 [facility] HEMATOLOGY Basophils # 0.1 0.0 - 0.2 08/08/2018 [facility] HEMATOLOGY Eosinophils # 0.4 0.0 - 0.5 08/08/2018 [facility] HEMATOLOGY Monocytes # 0.8 0.0 - 0.8 08/08/2018 [facility] HEMATOLOGY Basophils 0.8 0.0 - 1.0 08/08/2018 [facility] HEMATOLOGY Neutrophils # 5.8 1.5 - 8.1 08/08/2018 [facility] HEMATOLOGY Eosinophils 3.8 0.0 - 4.0 08/08/2018 [facility] HEMATOLOGY Lymphocytes # 3.0 1.0 - 5.5 08/08/2018 [facility] HEMATOLOGY Monocytes 7.6 2.0 - 12.0 08/08/2018 [facility] Lymphocytes 30.0 20.0 - 40.0 08/08/2018 [facility] HEMATOLOGY Segs 57.8 45.0 - 75.0 08/08/2018 [facility] HEMATOLOGY Hct 42.7 36.0 - 48.0 08/08/2018 [facility] HEMATOLOGY Hgb 14.4 12.0 - 16.0 08/08/2018 [facility] WBC 10.1 3.7 - 10.4 08/08/2018 [facility] RDW 12.9 11.5 - 14.5 08/08/2018 [facility] MPV 7.6 7.4 - 10.4 08/08/2018 [facility] Platelet 333 133 - 450 08/08/2018 [facility] MCHC 33.7 32.0 - 36.0 08/08/2018 [facility] MCH 28.3 27.0 - 31.0 08/08/2018 [facility] MCV 84.0 80.0 - 98.0 08/08/2018 [facility] RBC 5.08 4.20 - 5.40 08/08/2018 [facility] HEMATOLOGY D-Dimer 0.40 08/08/2018 [facility] RAPID Grp A Strep Scr Negative (08/08/18 4:17 PM) Negative 08/08/2018 [facility] URINE CHEM U Preg Negative (08/08/18 4:17 PM) Negative 08/08/2018 [facility] VIRAL - SEROLOGY Influ A Negative (08/08/18 4:00 PM) Negative 08/08/2018 [facility] VIRAL - SEROLOGY Influ B Negative (08/08/18 4:00 PM) Negative 08/08/2018 [facility] RAPID Grp A Strep Scr Negative (04/12/18 4:47 PM) Negative 04/12/2018 [facility] CARDIAC ENZYMES CK MB <1.0 0.5 - 3.6 01/21/2018 [facility] CARDIAC ENZYMES Troponin-I <0.02 0.00 - 0.40 01/21/2018 [facility] CARDIAC ENZYMES Total CK 44 12 - 191 01/21/2018 [facility] CARDIAC ENZYMES CK MB Index <2.3 0.0 - 2.5 01/21/2018 [facility] CHEM PANEL eGFR 119 01/21/2018 Result Comment: The eGFR is calculated using the CKD-EPI formula. In most young, healthy individuals the eGFR will be >90 mL/min/1.73m2. The eGFR declines with age. An eGFR of 60-89 may be normal in some populations, particularly the elderly, for whom the CKD-EPI formula has not been extensively validated. Use of the eGFR is not recommended in the following populations:

Individuals with unstable creatinine concentrations, including patients and those with serious co-morbid conditions.

Patients with extremes in muscle mass or diet.

The data above are obtained from the National Kidney Disease Education Program (NKDEP) which additionally recommends that when the eGFR is used in patients with extremes of body mass index for purposes of drug dosing, the eGFR should be multiplied by the estimated BMI. [facility] CHEM PANEL Bili Total 0.9 0.2 - 1.3 01/21/2018 [facility] CHEM PANEL Alk Phos 93 39 - 136 01/21/2018 [facility] CHEM PANEL AST 8 0 - 37 01/21/2018 [facility] CHEM PANEL ALT 24 0 - 65 01/21/2018 [facility] CHEM PANEL B/C Ratio 14 6 - 25 01/21/2018 [facility] CHEM PANEL AGAP 10.8 10.0 - 20.0 01/21/2018 [facility] CHEM PANEL A/G Ratio 0.9 0.7 - 1.6 01/21/2018 [facility] CHEM PANEL Globulin 3.9 2.7 - 4.2 01/21/2018 [facility] CHEM PANEL Total Protein 7.4 6.4 - 8.4 01/21/2018 [facility] CHEM PANEL Sodium Lvl 136 135 - 145 01/21/2018 [facility] CHEM PANEL Albumin Lvl 3.5 3.5 - 5.0 01/21/2018 [facility] CHEM PANEL Calcium Lvl 8.7 8.5 - 10.5 01/21/2018 [facility] CHEM PANEL CO2 27 24 - 32 01/21/2018 [facility] CHEM PANEL Potassium Lvl 3.8 3.5 - 5.1 01/21/2018 [facility] CHEM PANEL Creatinine Lvl 0.70 0.50 - 1.40 01/21/2018 [facility] CHEM PANEL BUN 10 7 - 22 01/21/2018 [facility] CHEM PANEL Glucose Lvl 319 70 - 99 01/21/2018 [facility] CHEM PANEL Chloride Lvl 102 95 - 109 01/21/2018 [facility] ENDOCRINOLOGY S Preg Negative *NA* (01/21/18 6:00 AM) Negative 01/21/2018 [facility] HEMATOLOGY RBC 5.08 4.20 - 5.40 01/21/2018 [facility] HEMATOLOGY Hgb 13.9 12.0 - 16.0 01/21/2018 [facility] HEMATOLOGY MPV 7.0 7.4 - 10.4 01/21/2018 [facility] HEMATOLOGY MCV 82.7 80.0 - 98.0 01/21/2018 [facility] HEMATOLOGY WBC 12.8 3.7 - 10.4 01/21/2018 [facility] Hct 42.0 36.0 - 48.0 01/21/2018 [facility] MCH 27.4 27.0 - 31.0 01/21/2018 [facility] MCHC 33.1 32.0 - 36.0 01/21/2018 [facility] Platelet 371 133 - 450 01/21/2018 [facility] HEMATOLOGY RDW 12.8 11.5 - 14.5 01/21/2018 [facility] HEMATOLOGY D-Dimer <0.27 01/21/2018 [facility] HEMATOLOGY Basophils 0.6 0.0 - 1.0 01/21/2018 [facility] HEMATOLOGY Monocytes 5.4 2.0 - 12.0 01/21/2018 [facility] HEMATOLOGY Eosinophils 3.8 0.0 - 4.0 01/21/2018 [facility] HEMATOLOGY Eosinophils # 0.5 0.0 - 0.5 01/21/2018 [facility] HEMATOLOGY Basophils # 0.1 0.0 - 0.2 01/21/2018 [facility] HEMATOLOGY Lymphocytes 38.5 20.0 - 40.0 01/21/2018 [facility] HEMATOLOGY Segs 51.7 45.0 - 75.0 01/21/2018 [facility] HEMATOLOGY Monocytes # 0.7 0.0 - 0.8 01/21/2018 [facility] HEMATOLOGY Segs-Bands # 6.6 1.5 - 8.1 01/21/2018 [facility] HEMATOLOGY Lymphocytes # 4.9 1.0 - 5.5 01/21/2018 [facility] URINE AND STOOL UA Ketones Negative *NA* (10/27/17 6:14 PM) Negative 10/28/2017 [facility] URINE AND STOOL UA Urobilinogen 0.2 0.1 - 1.0 10/28/2017 [facility] URINE AND STOOL UA Blood Trace *ABN* (10/27/17 6:14 PM) Negative 10/28/2017 [facility] URINE AND STOOL UA Bili Negative *NA* (10/27/17 6:14 PM) Negative 10/28/2017 [facility] URINE AND STOOL UA Leuk Est Moderate *ABN* (10/27/17 6:14 PM) Negative 10/28/2017 [facility] URINE AND STOOL UA Nitrite Negative (10/27/17 6:14 PM) Negative 10/28/2017 [facility] URINE AND STOOL UA Glucose >=1000 mg/dL Negative mg/dL 10/28/2017 [facility] URINE AND STOOL UA Protein Negative (10/27/17 6:14 PM) Negative 10/28/2017 [facility] URINE AND STOOL UA pH 6.0 5.0 - 8.0 10/28/2017 [facility] URINE AND STOOL UA Spec Grav 1.010 <=1.030 10/28/2017 [facility] URINE AND STOOL UA Turbidity Slight Cloudy (10/27/17 6:14 PM) Clear 10/28/2017 [facility] URINE AND STOOL UA Color Yellow *NA* (10/27/17 6:14 PM) Yellow 10/28/2017 [facility] URINE AND STOOL UA WBC 23 0 - 5 10/28/2017 [facility] URINE AND STOOL UA Sq Epi Many /LPF Few /LPF 10/28/2017 [facility] URINE AND STOOL UA Mucus Few /LPF None Seen /LPF 10/28/2017 [facility] URINE AND STOOL UA Bacteria Many /HPF None Seen /HPF 10/28/2017 [facility] URINE AND STOOL UA RBC 31 0 - 2 10/28/2017 [facility] URINE AND STOOL UA [place] Yeast Few /HPF None Seen /HPF 10/28/2017 [facility] URINE CHEM U Preg Negative (10/27/17 6:14 PM) Negative 10/28/2017 [facility] VIRAL - SEROLOGY Influ B Negative (10/27/17 4:44 PM) Negative 10/27/2017 [facility] VIRAL - SEROLOGY Influ A Negative (10/27/17 4:44 PM) Negative 10/27/2017 [facility] URINE AND STOOL UA Urobilinogen <=1.0 mg/dL 0.1 - 1.0 08/03/2017 [facility] URINE AND STOOL UA Color Yellow *NA* (08/02/17 11:24 PM) Yellow 08/03/2017 [facility] URINE AND STOOL UA Protein 30 mg/dL Negative mg/dL 08/03/2017 [facility] URINE AND STOOL UA pH 5.0 5.0 - 8.0 08/03/2017 [facility] URINE AND STOOL UA Spec Grav 1.024 <=1.030 08/03/2017 [facility] URINE AND STOOL UA Turbidity Marked *ABN* (08/02/17 11:24 PM) Clear 08/03/2017 [facility] URINE AND STOOL UA Nitrite Negative (08/02/17 11:24 PM) Negative 08/03/2017 [facility] URINE AND STOOL UA Bili Negative *NA* (08/02/17 11:24 PM) Negative 08/03/2017 [facility] URINE AND STOOL UA Blood Large *ABN* (08/02/17 11:24 PM) Negative 08/03/2017 [facility] URINE AND STOOL UA Ketones Negative mg/dL Negative mg/dL 08/03/2017 [facility] URINE AND STOOL UA Glucose Negative mg/dL Negative mg/dL 08/03/2017 [facility] URINE AND STOOL UA Bacteria Occasional /HPF None Seen /HPF 08/03/2017 [facility] URINE AND STOOL UA Mucus Few /LPF None Seen /LPF 08/03/2017 [facility] URINE AND STOOL UA WBC 89 0 - 5 08/03/2017 [facility] URINE AND STOOL UA RBC >182 0 - 2 08/03/2017 [facility] URINE AND STOOL UA Sq Epi Few /LPF Few /LPF 08/03/2017 [facility] URINE AND STOOL UA Leuk Est Large *ABN* (08/02/17 11:24 PM) Negative 08/03/2017 [facility] URINE CHEM U Preg Negative (08/02/17 11:24 PM) Negative 08/03/2017 [facility] CARDIAC ENZYMES Troponin-I <0.02 0.00 - 0.40 08/03/2017 [facility] CARDIAC ENZYMES Total CK 50 12 - 191 08/03/2017 [facility] CARDIAC ENZYMES CK MB <0.5 0.5 - 3.6 08/03/2017 [facility] CARDIAC ENZYMES CK MB Index <1.0 0.0 - 2.5 08/03/2017 [facility] CHEM PANEL Magnesium Lvl 1.7 1.8 - 2.4 08/03/2017 [facility] CHEM PANEL Phosphorus 3.3 2.5 - 4.5 08/03/2017 [facility] CHEM PANEL eGFR 123 08/03/2017 Result Comment: The eGFR is calculated using the CKD-EPI formula. In most young, healthy individuals the eGFR will be >90 mL/min/1.73m2. The eGFR declines with age. An eGFR of 60-89 may be normal in some populations, particularly the elderly, for whom the CKD-EPI formula has not been extensively validated. Use of the eGFR is not recommended in the following populations:

Individuals with unstable creatinine concentrations, including patients and those with serious co-morbid conditions.

Patients with extremes in muscle mass or diet.

The data above are obtained from the National Kidney Disease Education Program (NKDEP) which additionally recommends that when the eGFR is used in patients with extremes of body mass index for purposes of drug dosing, the eGFR should be multiplied by the estimated BMI. [facility] CHEM PANEL Calcium Lvl 8.6 8.5 - 10.5 08/03/2017 [facility] CHEM PANEL Chloride Lvl 102 95 - 109 08/03/2017 [facility] CHEM PANEL Potassium Lvl 4.0 3.5 - 5.1 08/03/2017 [facility] CHEM PANEL Sodium Lvl 135 135 - 145 08/03/2017 [facility] CHEM PANEL CO2 25 24 - 32 08/03/2017 [facility] CHEM PANEL Creatinine Lvl 0.63 0.50 - 1.40 08/03/2017 [facility] CHEM PANEL Glucose Lvl 200 70 - 99 08/03/2017 [facility] CHEM PANEL BUN 9 7 - 22 08/03/2017 [facility] CHEM PANEL Total Protein 7.5 6.4 - 8.4 08/03/2017 [facility] CHEM PANEL AGAP 12.0 10.0 - 20.0 08/03/2017 [facility] CHEM PANEL A/G Ratio 0.9 0.7 - 1.6 08/03/2017 [facility] CHEM PANEL Globulin 4.0 2.7 - 4.2 08/03/2017 [facility] CHEM PANEL B/C Ratio 14 6 - 25 08/03/2017 [facility] CHEM PANEL Bili Total 0.5 0.2 - 1.3 08/03/2017 [facility] CHEM PANEL Alk Phos 81 39 - 136 08/03/2017 [facility] CHEM PANEL AST 11 0 - 37 08/03/2017 [facility] CHEM PANEL ALT 25 0 - 65 08/03/2017 [facility] CHEM PANEL Albumin Lvl 3.5 3.5 - 5.0 08/03/2017 [facility] CHEM PANEL Lipase Lvl 92 73 - 393 08/03/2017 [facility] CHEM PANEL Lactic Acid Lvl 1.8 0.5 - 2.2 08/03/2017 [facility] HEMATOLOGY MPV 7.2 7.4 - 10.4 08/03/2017 [facility] HEMATOLOGY Platelet 356 133 - 450 08/03/2017 [facility] HEMATOLOGY MCHC 33.1 32.0 - 36.0 08/03/2017 [facility] HEMATOLOGY RDW 12.9 11.5 - 14.5 08/03/2017 [facility] HEMATOLOGY MCH 27.9 27.0 - 31.0 08/03/2017 [facility] HEMATOLOGY Hct 43.2 36.0 - 48.0 08/03/2017 [facility] HEMATOLOGY Hgb 14.3 12.0 - 16.0 08/03/2017 [facility] HEMATOLOGY MCV 84.4 80.0 - 98.0 08/03/2017 [facility] HEMATOLOGY WBC 15.2 3.7 - 10.4 08/03/2017 [facility] HEMATOLOGY RBC 5.11 4.20 - 5.40 08/03/2017 [facility] HEMATOLOGY Basophils 0.5 0.0 - 1.0 08/03/2017 [facility] HEMATOLOGY Eosinophils 1.7 0.0 - 4.0 08/03/2017 [facility] HEMATOLOGY Monocytes 3.5 2.0 - 12.0 08/03/2017 [facility] HEMATOLOGY Lymphocytes 17.1 20.0 - 40.0 08/03/2017 [facility] HEMATOLOGY Segs 77.2 45.0 - 75.0 08/03/2017 [facility] HEMATOLOGY Eosinophils # 0.3 0.0 - 0.5 08/03/2017 [facility] HEMATOLOGY Basophils # 0.1 0.0 - 0.2 08/03/2017 [facility] HEMATOLOGY Monocytes # 0.5 0.0 - 0.8 08/03/2017 [facility] HEMATOLOGY Lymphocytes # 2.6 1.0 - 5.5 08/03/2017 [facility] HEMATOLOGY Segs-Bands # 11.7 1.5 - 8.1 08/03/2017 [facility] URINE AND STOOL UA Urobilinogen <=1.0 mg/dL 0.1 - 1.0 04/23/2017 [facility] URINE AND STOOL UA Color Ltyellow 04/23/2017 [facility] URINE AND STOOL UA Nitrite Negative (04/23/17 12:13 AM) Negative 04/23/2017 [facility] URINE AND STOOL UA Leuk Est Negative (04/23/17 12:13 AM) Negative 04/23/2017 [facility] URINE AND STOOL UA Sq Epi Many /LPF Few /LPF 04/23/2017 [facility] URINE AND STOOL UA WBC 3 0 - 5 04/23/2017 [facility] URINE AND STOOL UA RBC 1 0 - 2 04/23/2017 [facility] URINE AND STOOL UA Bili Negative *NA* (04/23/17 12:13 AM) Negative 04/23/2017 [facility] URINE AND STOOL UA Blood Negative (04/23/17 12:13 AM) Negative 04/23/2017 [facility] URINE AND STOOL UA Protein Negative mg/dL Negative mg/dL 04/23/2017 [facility] URINE AND STOOL UA Bacteria Occasional /HPF None Seen /HPF 04/23/2017 [facility] URINE AND STOOL UA pH 5.0 5.0 - 8.0 04/23/2017 [facility] URINE AND STOOL UA Spec Grav 1.032 <=1.030 04/23/2017 [facility] URINE AND STOOL UA Turbidity Slight *ABN* (04/23/17 12:13 AM) Clear 04/23/2017 [facility] URINE AND STOOL UA Ketones Negative mg/dL Negative mg/dL 04/23/2017 [facility] URINE AND STOOL UA Glucose 500 mg/dL Negative mg/dL 04/23/2017 [facility] URINE CHEM U Preg Negative (04/23/17 12:13 AM) Negative 04/23/2017 [facility] CHEM PANEL Albumin Lvl 3.5 3.5 - 5.0 04/23/2017 [facility] CHEM PANEL Globulin 4.4 2.7 - 4.2 04/23/2017 [facility] CHEM PANEL A/G Ratio 0.8 0.7 - 1.6 04/23/2017 [facility] CHEM PANEL Bili Total 0.5 0.2 - 1.3 04/23/2017 [facility] CHEM PANEL Alk Phos 91 39 - 136 04/23/2017 [facility] CHEM PANEL eGFR 93 04/23/2017 Result Comment: The eGFR is calculated using the CKD-EPI formula. In most young, healthy individuals the eGFR will be >90 mL/min/1.73m2. The eGFR declines with age. An eGFR of 60-89 may be normal in some populations, particularly the elderly, for whom the CKD-EPI formula has not been extensively validated. Use of the eGFR is not recommended in the following populations:

Individuals with unstable creatinine concentrations, including patients and those with serious co-morbid conditions.

Patients with extremes in muscle mass or diet.

The data above are obtained from the National Kidney Disease Education Program (NKDEP) which additionally recommends that when the eGFR is used in patients with extremes of body mass index for purposes of drug dosing, the eGFR should be multiplied by the estimated BMI. [facility] CHEM PANEL ALT 33 0 - 65 04/23/2017 [facility] CHEM PANEL AST 17 0 - 37 04/23/2017 [facility] CHEM PANEL Calcium Lvl 8.5 8.5 - 10.5 04/23/2017 [facility] CHEM PANEL AGAP 13.0 10.0 - 20.0 04/23/2017 [facility] CHEM PANEL B/C Ratio 8 6 - 25 04/23/2017 [facility] CHEM PANEL Total Protein 7.9 6.4 - 8.4 04/23/2017 [facility] CHEM PANEL BUN 7 7 - 22 04/23/2017 [facility] CHEM PANEL Glucose Lvl 440 70 - 99 04/23/2017 Result Comment: Critical Result(s) called to Tucker Reynoso at 04/23/2017 00:40 [email or web address]. Read back OK. [facility] CHEM PANEL Creatinine Lvl 0.86 0.50 - 1.40 04/23/2017 [facility] CHEM PANEL Potassium Lvl 4.0 3.5 - 5.1 04/23/2017 [facility] CHEM PANEL Sodium Lvl 134 135 - 145 04/23/2017 [facility] CHEM PANEL Chloride Lvl 97 95 - 109 04/23/2017 [facility] CHEM PANEL CO2 28 24 - 32 04/23/2017 [facility] CHEM PANEL Lipase Lvl 150 73 - 393 04/23/2017 [facility] CHEM PANEL Amylase Lvl 57 25 - 115 04/23/2017 [facility] HEMATOLOGY Monocytes # 0.6 0.0 - 0.8 04/23/2017 [facility] HEMATOLOGY Eosinophils # 0.3 0.0 - 0.5 04/23/2017 [facility] HEMATOLOGY Basophils # 0.1 0.0 - 0.2 04/23/2017 [facility] HEMATOLOGY Segs 57.8 45.0 - 75.0 04/23/2017 [facility] HEMATOLOGY Segs-Bands # 7.2 1.5 - 8.1 04/23/2017 [facility] HEMATOLOGY Lymphocytes # 4.2 1.0 - 5.5 04/23/2017 [facility] HEMATOLOGY Basophils 0.8 0.0 - 1.0 04/23/2017 [facility] HEMATOLOGY Eosinophils 2.7 0.0 - 4.0 04/23/2017 [facility] Monocytes 4.8 2.0 - 12.0 04/23/2017 [facility] Lymphocytes 33.9 20.0 - 40.0 04/23/2017 [facility] MCV 84.6 80.0 - 98.0 04/23/2017 [facility] HEMATOLOGY Platelet 343 133 - 450 04/23/2017 [facility] MCH 28.0 27.0 - 31.0 04/23/2017 [facility] MCHC 33.1 32.0 - 36.0 04/23/2017 [facility] RDW 13.0 11.5 - 14.5 04/23/2017 [facility] Hct 45.6 36.0 - 48.0 04/23/2017 [facility] Hgb 15.1 12.0 - 16.0 04/23/2017 [facility] MPV 6.9 7.4 - 10.4 04/23/2017 [facility] HEMATOLOGY WBC 12.5 3.7 - 10.4 04/23/2017 [facility] HEMATOLOGY RBC 5.39 4.20 - 5.40 04/23/2017 [facility] URINE AND STOOL UA Color Ltyellow 01/11/2017 [facility] URINE AND STOOL UA RBC 2 0 - 2 01/11/2017 [facility] URINE AND STOOL UA Sq Epi Few /LPF Few /LPF 01/11/2017 [facility] URINE AND STOOL UA Urobilinogen <=1.0 mg/dL 0.1 - 1.0 01/11/2017 [facility] URINE AND STOOL UA Spec Grav 1.037 <=1.030 01/11/2017 [facility] URINE AND STOOL UA pH 5.0 5.0 - 8.0 01/11/2017 [facility] URINE AND STOOL UA Turbidity Clear (01/10/17 7:45 PM) Clear 01/11/2017 [facility] URINE AND STOOL UA Leuk Est Negative (01/10/17 7:45 PM) Negative 01/11/2017 [facility] URINE AND STOOL UA Bili Negative *NA* (01/10/17 7:45 PM) Negative 01/11/2017 [facility] URINE AND STOOL UA Blood Small *ABN* (01/10/17 7:45 PM) Negative 01/11/2017 [facility] URINE AND STOOL UA Nitrite Negative (01/10/17 7:45 PM) Negative 01/11/2017 [facility] URINE AND STOOL UA Glucose 500 mg/dL Negative mg/dL 01/11/2017 [facility] URINE AND STOOL UA Protein Negative mg/dL Negative mg/dL 01/11/2017 [facility] URINE AND STOOL UA Ketones Negative mg/dL Negative mg/dL 01/11/2017 [facility] ELECTROLYTES Sodium Lvl 133 135 - 145 01/11/2017 [facility] ELECTROLYTES Potassium Lvl 4.0 3.5 - 5.1 01/11/2017 [facility] ELECTROLYTES Chloride Lvl 96 95 - 109 01/11/2017 [facility] ELECTROLYTES Calcium Lvl 8.5 8.5 - 10.5 01/11/2017 [facility] ELECTROLYTES CO2 28 24 - 32 01/11/2017 [facility] ELECTROLYTES Total Protein 7.3 6.4 - 8.4 01/11/2017 [facility] ELECTROLYTES AST 15 0 - 37 01/11/2017 [facility] ELECTROLYTES ALT 39 0 - 65 01/11/2017 [facility] ELECTROLYTES Bili Total 0.4 0.2 - 1.3 01/11/2017 [facility] ELECTROLYTES Alk Phos 74 39 - 136 01/11/2017 [facility] ELECTROLYTES Albumin Lvl 3.4 3.5 - 5.0 01/11/2017 [facility] ELECTROLYTES Creatinine Lvl 0.67 0.50 - 1.40 01/11/2017 [facility] ELECTROLYTES BUN 7 7 - 22 01/11/2017 [facility] ELECTROLYTES eGFR 122 01/11/2017 Result Comment: The eGFR is calculated using the CKD-EPI formula. In most young, healthy individuals the eGFR will be >90 mL/min/1.73m2. The eGFR declines with age. An eGFR of 60-89 may be normal in some populations, particularly the elderly, for whom the CKD-EPI formula has not been extensively validated. Use of the eGFR is not recommended in the following populations:

Individuals with unstable creatinine concentrations, including patients and those with serious co-morbid conditions.

Patients with extremes in muscle mass or diet.

The data above are obtained from the National Kidney Disease Education Program (NKDEP) which additionally recommends that when the eGFR is used in patients with extremes of body mass index for purposes of drug dosing, the eGFR should be multiplied by the estimated BMI. [facility] ELECTROLYTES Glucose Lvl 271 70 - 99 01/11/2017 [facility] ELECTROLYTES A/G Ratio 0.9 0.7 - 1.6 01/11/2017 [facility] ELECTROLYTES Globulin 3.9 2.7 - 4.2 01/11/2017 [facility] ELECTROLYTES B/C Ratio 10 6 - 25 01/11/2017 [facility] ELECTROLYTES AGAP 13.0 10.0 - 20.0 01/11/2017 [facility] ENDOCRINOLOGY hCG Tot <1 01/11/2017 [facility] MPV 7.0 7.4 - 10.4 01/11/2017 [facility] MCH 28.1 27.0 - 31.0 01/11/2017 [facility] MCV 82.7 80.0 - 98.0 01/11/2017 [facility] RDW 13.1 11.5 - 14.5 01/11/2017 [facility] MCHC 34.0 32.0 - 36.0 01/11/2017 [facility] Platelet 326 133 - 450 01/11/2017 [facility] RBC 5.04 4.20 - 5.40 01/11/2017 [facility] WBC 12.9 3.7 - 10.4 01/11/2017 [facility] Hct 41.7 36.0 - 48.0 01/11/2017 [facility] Hgb 14.2 12.0 - 16.0 01/11/2017 [facility] Basophils # 0.1 0.0 - 0.2 01/11/2017 [facility] Eosinophils 0.2 0.0 - 4.0 01/11/2017 [facility] HEMATOLOGY Segs-Bands # 9.6 1.5 - 8.1 01/11/2017 [facility] HEMATOLOGY Basophils 0.5 0.0 - 1.0 01/11/2017 [facility] HEMATOLOGY Monocytes # 1.1 0.0 - 0.8 01/11/2017 [facility] HEMATOLOGY Lymphocytes # 2.1 1.0 - 5.5 01/11/2017 [facility] HEMATOLOGY Segs 74.4 45.0 - 75.0 01/11/2017 [facility] HEMATOLOGY Monocytes 8.5 2.0 - 12.0 01/11/2017 [facility] HEMATOLOGY Lymphocytes 16.4 20.0 - 40.0 01/11/2017 [facility] RAPID Grp A Strep Scr Positive *ABN* (01/10/17 7:31 PM) Negative 01/11/2017 [facility] VIRAL - SEROLOGY Influ A Negative (01/10/17 7:31 PM) Negative 01/11/2017 [facility] VIRAL - SEROLOGY Influ B Positive *ABN* (01/10/17 7:31 PM) Negative 01/11/2017 [facility] CHEM PANEL Amylase Lvl 37 25 - 115 12/18/2016 [facility] CHEM PANEL Lipase Lvl 104 73 - 393 12/18/2016 [facility] CHEM PANEL A/G Ratio 0.8 0.7 - 1.6 12/18/2016 [facility] CHEM PANEL Globulin 3.9 2.7 - 4.2 12/18/2016 [facility] CHEM PANEL AGAP 10.9 10.0 - 20.0 12/18/2016 [facility] CHEM PANEL B/C Ratio 21 6 - 25 12/18/2016 [facility] CHEM PANEL eGFR 121 12/18/2016 Result Comment: The eGFR is calculated using the CKD-EPI formula. In most young, healthy individuals the eGFR will be >90 mL/min/1.73m2. The eGFR declines with age. An eGFR of 60-89 may be normal in some populations, particularly the elderly, for whom the CKD-EPI formula has not been extensively validated. Use of the eGFR is not recommended in the following populations:

Individuals with unstable creatinine concentrations, including patients and those with serious co-morbid conditions.

Patients with extremes in muscle mass or diet.

The data above are obtained from the National Kidney Disease Education Program (NKDEP) which additionally recommends that when the eGFR is used in patients with extremes of body mass index for purposes of drug dosing, the eGFR should be multiplied by the estimated BMI. [facility] CHEM PANEL Bili Total 0.3 0.2 - 1.3 12/18/2016 [facility] CHEM PANEL Alk Phos 98 39 - 136 12/18/2016 [facility] CHEM PANEL AST 7 0 - 37 12/18/2016 [facility] CHEM PANEL Calcium Lvl 8.8 8.5 - 10.5 12/18/2016 [facility] CHEM PANEL CO2 27 24 - 32 12/18/2016 [facility] CHEM PANEL ALT 22 0 - 65 12/18/2016 [facility] CHEM PANEL Albumin Lvl 3.2 3.5 - 5.0 12/18/2016 [facility] CHEM PANEL Total Protein 7.1 6.4 - 8.4 12/18/2016 [facility] CHEM PANEL BUN 14 7 - 22 12/18/2016 [facility] CHEM PANEL Chloride Lvl 100 95 - 109 12/18/2016 [facility] CHEM PANEL Potassium Lvl 3.9 3.5 - 5.1 12/18/2016 [facility] CHEM PANEL Sodium Lvl 134 135 - 145 12/18/2016 [facility] CHEM PANEL Creatinine Lvl 0.68 0.50 - 1.40 12/18/2016 [facility] CHEM PANEL Glucose Lvl 354 70 - 99 12/18/2016 [facility] HEMATOLOGY Monocytes 5.3 2.0 - 12.0 12/18/2016 [facility] HEMATOLOGY Lymphocytes # 5.1 1.0 - 5.5 12/18/2016 [facility] HEMATOLOGY Segs-Bands # 6.0 1.5 - 8.1 12/18/2016 [facility] HEMATOLOGY Basophils 1.2 0.0 - 1.0 12/18/2016 [facility] HEMATOLOGY Eosinophils 4.6 0.0 - 4.0 12/18/2016 [facility] HEMATOLOGY Lymphocytes 40.9 20.0 - 40.0 12/18/2016 [facility] HEMATOLOGY Segs 48.0 45.0 - 75.0 12/18/2016 [facility] HEMATOLOGY Monocytes # 0.7 0.0 - 0.8 12/18/2016 [facility] HEMATOLOGY Eosinophils # 0.6 0.0 - 0.5 12/18/2016 [facility] HEMATOLOGY Basophils # 0.2 0.0 - 0.2 12/18/2016 [facility] HEMATOLOGY MPV 6.9 7.4 - 10.4 12/18/2016 [facility] HEMATOLOGY Platelet 316 133 - 450 12/18/2016 [facility] HEMATOLOGY RDW 13.2 11.5 - 14.5 12/18/2016 [facility] HEMATOLOGY MCV 82.0 80.0 - 98.0 12/18/2016 [facility] HEMATOLOGY RBC 4.95 4.20 - 5.40 12/18/2016 [facility] HEMATOLOGY Hgb 13.5 12.0 - 16.0 12/18/2016 [facility] HEMATOLOGY MCH 27.3 27.0 - 31.0 12/18/2016 [facility] HEMATOLOGY MCHC 33.3 32.0 - 36.0 12/18/2016 [facility] HEMATOLOGY Hct 40.6 36.0 - 48.0 12/18/2016 [facility] HEMATOLOGY WBC 12.6 3.7 - 10.4 12/18/2016 [facility] URINE AND STOOL UA Glucose 500 mg/dL Negative mg/dL 12/18/2016 [facility] URINE AND STOOL UA Protein Negative mg/dL Negative mg/dL 12/18/2016 [facility] URINE AND STOOL UA Ketones Negative mg/dL Negative mg/dL 12/18/2016 [facility] URINE AND STOOL UA Bacteria Occasional /HPF None Seen /HPF 12/18/2016 [facility] URINE AND STOOL UA Color Ltyellow 12/18/2016 [facility] URINE AND STOOL UA Blood Negative (12/18/16 2:40 AM) Negative 12/18/2016 [facility] URINE AND STOOL UA Bili Negative *NA* (12/18/16 2:40 AM) Negative 12/18/2016 [facility] URINE AND STOOL UA Leuk Est Moderate *ABN* (12/18/16 2:40 AM) Negative 12/18/2016 [facility] URINE AND STOOL UA pH 7.0 5.0 - 8.0 12/18/2016 [facility] URINE AND STOOL UA Nitrite Negative (12/18/16 2:40 AM) Negative 12/18/2016 [facility] URINE AND STOOL UA Sq Epi Moderate /LPF Few /LPF 12/18/2016 [facility] URINE AND STOOL UA Turbidity Clear (12/18/16 2:40 AM) Clear 12/18/2016 [facility] URINE AND STOOL UA Spec Grav 1.028 <=1.030 12/18/2016 [facility] URINE AND STOOL UA Urobilinogen <=1.0 mg/dL 0.1 - 1.0 12/18/2016 [facility] URINE AND STOOL UA WBC 3 0 - 5 12/18/2016 [facility] URINE AND STOOL UA RBC <1 0 - 2 12/18/2016 [facility] URINE CHEM U Preg Negative (12/18/16 2:40 AM) Negative 12/18/2016 [facility] MOLECULAR DIAGNOSTIC C trachomatis by Amp Det (APTIMA) Negative *NA* (12/03/16 5:11 AM) Negative 12/03/2016 [facility] MOLECULAR DIAGNOSTIC N gonorrhea by Amp Det (APTIMA) Negative *NA* (12/03/16 5:11 AM) Negative 12/03/2016 [facility] MOLECULAR DIAGNOSTIC Source APTIMA Vaginal *NA* (12/03/16 5:11 AM) 12/03/2016 [facility] CHEM PANEL A/G Ratio 0.8 0.7 - 1.6 12/03/2016 [facility] CHEM PANEL Globulin 4.3 2.7 - 4.2 12/03/2016 [facility] CHEM PANEL AGAP 14.7 10.0 - 20.0 12/03/2016 [facility] CHEM PANEL B/C Ratio 17 6 - 25 12/03/2016 [facility] CHEM PANEL eGFR 127 12/03/2016 Result Comment: The eGFR is calculated using the CKD-EPI formula. In most young, healthy individuals the eGFR will be >90 mL/min/1.73m2. The eGFR declines with age. An eGFR of 60-89 may be normal in some populations, particularly the elderly, for whom the CKD-EPI formula has not been extensively validated. Use of the eGFR is not recommended in the following populations:

Individuals with unstable creatinine concentrations, including patients and those with serious co-morbid conditions.

Patients with extremes in muscle mass or diet.

The data above are obtained from the National Kidney Disease Education Program (NKDEP) which additionally recommends that when the eGFR is used in patients with extremes of body mass index for purposes of drug dosing, the eGFR should be multiplied by the estimated BMI. [facility] CHEM PANEL Sodium Lvl 136 135 - 145 12/03/2016 [facility] CHEM PANEL Potassium Lvl 3.7 3.5 - 5.1 12/03/2016 [facility] CHEM PANEL Chloride Lvl 100 95 - 109 12/03/2016 [facility] CHEM PANEL Creatinine Lvl 0.59 0.50 - 1.40 12/03/2016 [facility] CHEM PANEL Glucose Lvl 301 70 - 99 12/03/2016 [facility]M PANEL BUN 10 7 - 22 12/03/2016 [facility] CHEM PANEL CO2 25 24 - 32 12/03/2016 [facility] CHEM PANEL Calcium Lvl 8.8 8.5 - 10.5 12/03/2016 [facility] CHEM PANEL Total Protein 7.8 6.4 - 8.4 12/03/2016 [facility] CHEM PANEL Alk Phos 105 39 - 136 12/03/2016 [facility] CHEM PANEL AST 11 0 - 37 12/03/2016 [facility] CHEM PANEL Albumin Lvl 3.5 3.5 - 5.0 12/03/2016 [facility] CHEM PANEL ALT 25 0 - 65 12/03/2016 [facility] CHEM PANEL Bili Total 0.5 0.2 - 1.3 12/03/2016 [facility] CHEM PANEL Lipase Lvl 108 73 - 393 12/03/2016 [facility] CHEM PANEL Amylase Lvl 28 25 - 115 12/03/2016 [facility] HEMATOLOGY MPV 7.1 7.4 - 10.4 12/03/2016 [facility] HEMATOLOGY MCH 27.4 27.0 - 31.0 12/03/2016 [facility] HEMATOLOGY RDW 13.3 11.5 - 14.5 12/03/2016 [facility] HEMATOLOGY MCV 81.8 80.0 - 98.0 12/03/2016 [facility] HEMATOLOGY MCHC 33.4 32.0 - 36.0 12/03/2016 [facility] HEMATOLOGY Platelet 358 133 - 450 12/03/2016 [facility] HEMATOLOGY RBC 5.50 4.20 - 5.40 12/03/2016 [facility] HEMATOLOGY Hct 45.1 36.0 - 48.0 12/03/2016 [facility] HEMATOLOGY WBC 16.6 3.7 - 10.4 12/03/2016 [facility] HEMATOLOGY Hgb 15.1 12.0 - 16.0 12/03/2016 [facility] HEMATOLOGY Basophils 1.1 0.0 - 1.0 12/03/2016 [facility] HEMATOLOGY Segs-Bands # 9.0 1.5 - 8.1 12/03/2016 [facility] HEMATOLOGY Monocytes # 0.8 0.0 - 0.8 12/03/2016 [facility] HEMATOLOGY Lymphocytes # 6.0 1.0 - 5.5 12/03/2016 [facility] HEMATOLOGY Eosinophils # 0.6 0.0 - 0.5 12/03/2016 [facility] HEMATOLOGY Basophils # 0.2 0.0 - 0.2 12/03/2016 [facility] HEMATOLOGY Eosinophils 3.6 0.0 - 4.0 12/03/2016 [facility] HEMATOLOGY Segs 54.0 45.0 - 75.0 12/03/2016 [facility] HEMATOLOGY Lymphocytes 36.5 20.0 - 40.0 12/03/2016 [facility] HEMATOLOGY Monocytes 4.8 2.0 - 12.0 12/03/2016 [facility] URINE AND STOOL UA Color Ltyellow 12/03/2016 [facility] URINE AND STOOL UA Urobilinogen <=1.0 mg/dL 0.1 - 1.0 12/03/2016 [facility] URINE AND STOOL UA Sq Epi Few /LPF Few /LPF 12/03/2016 [facility] URINE AND STOOL UA RBC 1 0 - 2 12/03/2016 [facility] URINE AND STOOL UA WBC 1 0 - 5 12/03/2016 [facility] URINE AND STOOL UA Blood Negative (12/03/16 2:02 AM) Negative 12/03/2016 [facility] URINE AND STOOL UA Ketones Trace mg/dL Negative mg/dL 12/03/2016 [facility] URINE AND STOOL UA Bili Negative *NA* (12/03/16 2:02 AM) Negative 12/03/2016 [facility] URINE AND STOOL UA Nitrite Negative (12/03/16 2:02 AM) Negative 12/03/2016 [facility] URINE AND STOOL UA Leuk Est Small *ABN* (12/03/16 2:02 AM) Negative 12/03/2016 [facility] URINE AND STOOL UA Glucose 500 mg/dL Negative mg/dL 12/03/2016 [facility] URINE AND STOOL UA Turbidity Slight *ABN* (12/03/16 2:02 AM) Clear 12/03/2016 [facility] URINE AND STOOL UA Spec Grav 1.041 <=1.030 12/03/2016 [facility] URINE AND STOOL UA pH 5.0 5.0 - 8.0 12/03/2016 [facility] URINE AND STOOL UA Protein Negative mg/dL Negative mg/dL 12/03/2016 [facility] URINE CHEM U Preg Negative (12/03/16 2:02 AM) Negative 12/03/2016 [facility] CARDIAC ENZYMES CK MB 0.5 0.5 - 3.6 03/17/2016 [facility] CARDIAC ENZYMES Troponin-I <0.02 0.00 - 0.40 03/17/2016 [facility] CARDIAC ENZYMES Total CK 32 12 - 191 03/17/2016 [facility] CARDIAC ENZYMES CK MB Index 1.6 0.0 - 2.5 03/17/2016 [facility] CHEM PANEL Osmolality 303 280 - 300 03/17/2016 [facility] CHEM PANEL Lactic Acid Lvl 1.0 0.5 - 2.2 03/17/2016 [facility] CHEM PANEL Magnesium Lvl 1.9 1.8 - 2.4 03/17/2016 [facility] CHEM PANEL Phosphorus 2.8 2.5 - 4.5 03/17/2016 [facility] CHEM PANEL Ketone Quantitative 0.62 <=0.27 mmol/L 03/17/2016 [facility] CHEM PANEL eGFR 122 03/17/2016 Result Comment: The eGFR is calculated using the CKD-EPI formula. In most young, healthy individuals the eGFR will be >90 mL/min/1.73m2. The eGFR declines with age. An eGFR of 60-89 may be normal in some populations, particularly the elderly, for whom the CKD-EPI formula has not been extensively validated. Use of the eGFR is not recommended in the following populations:

Individuals with unstable creatinine concentrations, including patients and those with serious co-morbid conditions.

Patients with extremes in muscle mass or diet.

The data above are obtained from the National Kidney Disease Education Program (NKDEP) which additionally recommends that when the eGFR is used in patients with extremes of body mass index for purposes of drug dosing, the eGFR should be multiplied by the estimated BMI. [facility] CHEM PANEL A/G Ratio 0.9 0.7 - 1.6 03/17/2016 [facility] CHEM PANEL AST 8 0 - 37 03/17/2016 [facility] CHEM PANEL Albumin Lvl 3.4 3.5 - 5.0 03/17/2016 [facility] CHEM PANEL ALT 23 0 - 65 03/17/2016 [facility] CHEM PANEL AGAP 11.9 10.0 - 20.0 03/17/2016 [facility] CHEM PANEL Alk Phos 85 39 - 136 03/17/2016 [facility] CHEM PANEL B/C Ratio 17 6 - 25 03/17/2016 [facility] CHEM PANEL Bili Total 0.3 0.2 - 1.3 03/17/2016 [facility] CHEM PANEL Globulin 3.8 2.0 - 4.0 03/17/2016 [facility] CHEM PANEL Total Protein 7.2 6.4 - 8.4 03/17/2016 [facility] CHEM PANEL CO2 27 24 - 32 03/17/2016 [facility] CHEM PANEL Potassium Lvl 3.9 3.5 - 5.1 03/17/2016 [facility] CHEM PANEL Chloride Lvl 100 95 - 109 03/17/2016 [facility] CHEM PANEL Creatinine Lvl 0.66 0.50 - 1.40 03/17/2016 [facility] CHEM PANEL Sodium Lvl 135 135 - 145 03/17/2016 [facility] CHEM PANEL Calcium Lvl 8.4 8.5 - 10.5 03/17/2016 [facility] CHEM PANEL BUN 11 7 - 22 03/17/2016 [facility] CHEM PANEL Glucose Lvl 351 70 - 99 03/17/2016 [facility] ENDOCRINOLOGY S Preg Negative *NA* (03/17/16 10:31 AM) Negative 03/17/2016 [facility] HEMATOLOGY MPV 7.2 7.4 - 10.4 03/17/2016 [facility] HEMATOLOGY MCHC 32.2 32.0 - 36.0 03/17/2016 [facility] HEMATOLOGY RDW 13.4 11.5 - 14.5 03/17/2016 [facility] HEMATOLOGY Platelet 314 133 - 450 03/17/2016 [facility] HEMATOLOGY Hct 42.4 36.0 - 48.0 03/17/2016 [facility] HEMATOLOGY MCV 82.4 80.0 - 98.0 03/17/2016 [facility] HEMATOLOGY MCH 26.5 27.0 - 31.0 03/17/2016 [facility] HEMATOLOGY Hgb 13.6 12.0 - 16.0 03/17/2016 [facility] HEMATOLOGY WBC 13.0 3.7 - 10.4 03/17/2016 [facility] HEMATOLOGY RBC 5.14 4.20 - 5.40 03/17/2016 [facility] HEMATOLOGY PT 12.7 12.0 - 14.7 03/17/2016 [facility] HEMATOLOGY INR 0.92 0.85 - 1.17 03/17/2016 [facility] HEMATOLOGY PTT 27.8 22.9 - 35.8 03/17/2016 [facility] HEMATOLOGY Basophils 1.3 0.0 - 1.0 03/17/2016 [facility] HEMATOLOGY Basophils # 0.2 0.0 - 0.2 03/17/2016 [facility] HEMATOLOGY Monocytes # 0.6 0.0 - 0.8 03/17/2016 [facility] HEMATOLOGY Lymphocytes # 3.3 1.0 - 5.5 03/17/2016 [facility] HEMATOLOGY Segs-Bands # 8.6 1.5 - 8.1 03/17/2016 [facility] HEMATOLOGY Monocytes 4.4 2.0 - 12.0 03/17/2016 [facility] HEMATOLOGY Lymphocytes 25.5 20.0 - 40.0 03/17/2016 [facility] HEMATOLOGY Segs 66.3 45.0 - 75.0 03/17/2016 [facility] HEMATOLOGY Eosinophils 2.5 0.0 - 4.0 03/17/2016 [facility] HEMATOLOGY Eosinophils # 0.3 0.0 - 0.5 03/17/2016 [facility] URINE AND STOOL UA Mucus Few /LPF None Seen /LPF 03/17/2016 [facility] URINE AND STOOL UA Bacteria Few /HPF None Seen /HPF 03/17/2016 [facility] URINE AND STOOL UA RBC 0-2 /HPF 0 - 2 03/17/2016 [facility] URINE AND STOOL UA WBC 3-5 /HPF 0 - 5 03/17/2016 [facility] URINE AND STOOL UA Sq Epi Moderate /LPF Few /LPF 03/17/2016 [facility] URINE AND STOOL UA Leuk Est Negative (03/17/16 10:31 AM) Negative 03/17/2016 [facility] URINE AND STOOL UA Urobilinogen 0.2 0.1 - 1.0 03/17/2016 [facility] URINE AND STOOL UA Nitrite Negative (03/17/16 10:31 AM) Negative 03/17/2016 [facility] URINE AND STOOL UA Blood Negative (03/17/16 10:31 AM) Negative 03/17/2016 [facility] URINE AND STOOL UA Spec Grav 1.010 <=1.030 03/17/2016 [facility] URINE AND STOOL UA Turbidity Slight Cloudy (03/17/16 10:31 AM) Clear 03/17/2016 [facility] URINE AND STOOL UA Color Yellow *NA* (03/17/16 10:31 AM) Yellow 03/17/2016 [facility] URINE AND STOOL UA pH 6.0 5.0 - 8.0 03/17/2016 [facility] URINE AND STOOL UA Protein Negative mg/dL Negative mg/dL 03/17/2016 [facility] URINE AND STOOL UA Glucose >=1000 mg/dL Negative mg/dL 03/17/2016 [facility] URINE AND STOOL UA Ketones 15 mg/dL Negative mg/dL 03/17/2016 [facility] URINE AND STOOL UA Bili Negative *NA* (03/17/16 10:31 AM) Negative 03/17/2016 [facility] Pathology Reports No Data Provided for This Section Diagnostic Reports Report Value Date Source Chest 2 views DX Clinical Indication: - cp Comparison: None FINDINGS: The PA and lateral chest radiographs shows normal lung volumes without interstitial or airspace opacities, pleural effusions or pneumothorax. The heart size and pulmonary vasculature are normal. The trachea is midline. There are no clinically significant osseous abnormalities noted. IMPRESSION: No chest radiographic evidence of acute cardiopulmonary disease. SL: JEFFREYM 12/07/2018 [facility] Abdomen RUQ US Clinical Indication: - epigastric pain; Comparison: Ultrasound 12/03/2016; CT abdomen pelvis 10/17/2018 TECHNIQUE: Grayscale and limited color sonographic evaluation of the right upper quadrant abdomen was performed with standard technique. FINDINGS: LIVER: The visualized liver shows normal contour and morphology with increased parenchymal echogenicity, suggestive of hepatic steatosis. The liver measures 19.5 cm in length. BILE DUCTS: The intrahepatic and extrahepatic bile ducts are not dilated with the common bile duct measuring 4 mm. The distal common bile duct is not well seen. GALLBLADDER: There are no gallstones, gallbladder sludge, pericholecystic fluid or wall thickening. PANCREAS: The visualized pancreas appears unremarkable. KIDNEY: The right kidney measures 13 x 4.9 x 6.5 cm. There is normal renal contour and morphology, with normal parenchymal echotexture. There is no hydronephrosis. AORTA AND INFERIOR VENA CAVA: Visualized portions appear unremarkable. ASCITES: There is no right abdominal ascites. IMPRESSION: 1. No sonographic evidence of cholelithiasis or acute cholecystitis. 2. Hepatic steatosis with hepatomegaly. SL: [id number] 10/19/2018 [facility] Abdomen AP DX Abdomen one view: The gas pattern is within normal limits. There is no evidence of pneumoperitoneum. There are no significant calcifications. There are no significant osseous abnormalities. IMPRESSION: No acute radiographic abnormality of the abdomen. [id number] 10/19/2018 [facility] Chest 2 views DX PA and lateral chest: The cardiomediastinal silhouette, pulmonary vasculature and jerman are within normal limits. The lungs and pleural spaces are clear. There are no significant osseous abnormalities. T here is no significant change compared to 01/21/2018. IMPRESSION: No acute radiographic abnormalities in the chest. [id number] 10/19/2018 [facility] ED Abdomen/Pelvis IV contrast only CT Patient Name: ALEM RAWLS : 1990 Age: 28 years, Female MR: [id number] Study: ED Abdomen/Pelvis IV contrast only CT 10/17/2018 9:08 [employer] Indication: Abdominal pain. Vomiting. Clinical information: - abd pain, vomiting. Comparison: CT abdomen and pelvis 08/03/2017 Technique: The abdomen and pelvis were scanned utilizing a multidetector helical scanner from the lung bases through the level of the pubic symphysis after the administration of intravenous contrast. Coronal and sagittal reconstructions were submitted for interpretation. Protocol: General survey IV contrast: 100 cc of Omnipaque Oral contrast: None Complications: None Radiation dose: Total exam DLP 1616.4 mGy-cm CT imaging performed at this location utilizes radiation dose optimization techniques which include one or more of the following: -Automated exposure control -Adjustment of the mA and/or kV according to patient size -Use of iterative reconstruction technique Findings: Lines/tubes: None. Lower thorax: Normal parenchyma. No pleural effusion. No pneumothorax. Liver: Normal parenchyma. No focal mass. No hepatomegaly. Biliary: No gallstones. No intrahepatic duct dilation. Normal common bile duct. Vascular: The portal and mesenteric veins are patent. The hepatic veins are patent. Spleen: No focal mass. No splenomegaly. Pancreas: No focal mass. Normal pancreatic duct. No peripancreatic inflammatory changes. Adrenal glands: No adrenal nodules. Kidneys: No solid enhancing mass. No cysts. No perinephric soft tissue inflammatory changes. Collecting system: No obstructing calculi. No hydronephrosis. Bladder: Normal urinary bladder. Reproductive organs: Normal uterus. Stomach: Normal gastric distention. No bowel wall thickening. Small bowel: No bowel wall thickening. No air-fluid levels. No pneumoperitoneum. Colon: The colon is normal. The appendix is normal. A moderate amount of retained feces limits intraluminal evaluation of the colon. Peritoneum/retroperitoneum: No ascites. No drainable fluid collection. Lymph nodes: No lymphadenopathy. Multiple subcentimeter noncalcified nonnecrotic lymph nodes are present in the mesentery. Soft tissues: No focal abnormality. The fascia of the abdominal wall is intact. Surgical clips are noted along the left lateral chest wall. Vessels: The abdominal aorta and iliac vessels are patent. The origins of the celiac, superior mesenteric, and inferior mesenteric arteries are patent. The bilateral renal arteries are patent. Bones: No acute osseous abnormality. IMPRESSION: No acute abnormality of the abdomen and pelvis. SL: [id number] 10/17/2018 [facility] Chest 1view DX Clinical Indication: Chest pain. Comparison: Chest radiograph 08/02/2017. FINDINGS: The frontal chest radiograph shows normal lung volumes without interstitial or airspace opacities, pleural effusions or pneumothorax. The cardiomediastinal contours are normal. The trachea is midline. There are no clinically significant osseous abnormalities noted. IMPRESSION: No chest radiographic evidence of acute cardiopulmonary disease. SL: KPATEL-M 01/21/2018 [facility] Drain/Inj Major Joint/Bursa US EXAM: ULTRASOUND-GUIDED THERAPEUTIC PES ANSERINE BURSAL INJECTION WITH KENALOG AND ROPIVACAINE DATE: 12/20/2017 3:46 PM CDT INDICATION: - M70.52 Other bursitis of knee, left knee COMPARISON: MRI from October 20, 2017 PRELIMINARY ULTRASOUND: Preliminary ultrasound demonstrates small amount of fluid in the pes anserine bursa. Region demonstrates focal tenderness in this region. TECHNIQUE: Consent: An informed consent was obtained from the patient prior to the procedure. Appropriate time out procedures were performed. The skin was prepped and draped in the usual fashion under aseptic precautions. 1% lidocaine was utilized for local anesthesia. Under direct ultrasound guidance a 25-gauge needle was advanced to pes anserine bursal region. Infiltration of lidocaine 1% was performed to produce a cleavage plane. 30 mg of Kenalog and 3 mL of 0.2% ropivacaine were subsequently injected . Post procedure check imaging demonstrated no tendon infiltration. No immediate complications. IMPRESSION: Technically successful ultrasound-guided therapeutic injection of pes anserine bursal injection with Kenalog and bupivacaine. 12/20/2017 [facility]ison Knee wo contrast MRI EXAM: MR LEFT KNEE WITHOUT CONTRAST DATE: 10/20/2017 6:52 PM [employer] INDICATION: - S80.02XA Contusion of left knee, initial encounter, knee injury after slipping on water July 10, 2017 COMPARISON: Radiographs 07/10/2017 TECHNIQUE: Multiplanar, multisequence noncontrast MR imaging of the knee. FINDINGS: MENISCI: Medial meniscus: Intact. Capsular ligaments intact. Lateral meniscus: Large complex bucket handle tear of the body and posterior horn of the lateral meniscus with large flipped fragment anteromedially along the notch and anterior horn. The root posterior ligament is intact. LIGAMENTS: ACL: The anterior cruciate ligament is intact. PCL: The posterior cruciate ligament is intact. MCL: The medial collateral ligament is intact. Mild edema in the proximal MCL fibers. LCL: The lateral collateral ligament complex is intact. EXTENSOR MECHANISM: The quadriceps tendon, patella and the patellar tendon are intact. MUSCLES: No signal abnormality in the muscles. CARTILAGE: Patellofemoral compartment: No chondral defects. Medial compartment: No chondral defects. Lateral compartment: Small focal partial thickness chondral loss in the central weightbearing lateral femoral condyle, best seen in series 401 image 9 BONE: No fractures. Tiny marginal osteophytes. Visualized bone marrow signal is normal. SOFT TISSUE: Physiologic joint fluid No abnormality of the neurovascular structures. IMPRESSION: 1. Large complex bucket handle tear of the body and posterior horn of the lateral meniscus with flipped fragment anteromedially along the notch and anterior horn. 2. Intact cruciate and collateral ligaments and the medial meniscus. 10/20/2017 [facility]ison [address]al Stone CT Clinical Indication: Left flank pain. Comparison: CT abdomen and pelvis 04/23/2017. TECHNIQUE: Noncontrasted helical imaging was performed from the kidneys through the symphysis as a renal stone protocol. Multiplanar reformations are available. IV CONTRAST: No IV contrast was administered. GI CONTRAST: No oral contrast was administered. DLP: 1276.89 mGy-cm FINDINGS: LOWER CHEST: Dependent atelectasis is seen at the lung bases. LIVER: There is diffuse low-attenuation of the liver. There are no gross intrahepatic masses. There is no intrahepatic biliary ductal dilatation noted. BILIARY TREE: There is no significant biliary ductal dilatation. GALLBLADDER: The gallbladder is present. PANCREAS: The pancreas is unremarkable. The pancreatic duct is normal in caliber. SPLEEN: The spleen is normal in size and there are no parenchymal abnormalities. ADRENALS: The right adrenal gland is unremarkable. The left adrenal gland is unremarkable. KIDNEYS: There is no evidence of renal or ureteral calculi. There is no evidence of hydronephrosis. The renal contours are unremarkable. BOWEL: A moderate amount of fecal material is noted throughout the colon. There is no evidence of bowel obstruction. APPENDIX: The appendix is unremarkable. PELVIS: There are no pelvic mass. The urinary bladder is within normal limits. The uterus and ovaries are unremarkable. PERITONEUM: There is no evidence for free intraperitoneal fluid or air. LYMPH NODES: There are small bilateral inguinal and mesenteric lymph nodes, which are most likely reactive in etiology. VASCULATURE: The abdominal aorta is normal in caliber. MUSCULOSKELETAL: The visualized bony skeleton is unremarkable. IMPRESSION: 1. No evidence of obstructive uropathy. 2. Appendix within normal limits. No evidence of bowel obstruction. Moderate amount of fecal material within the colon. 3. Again seen hepatic steatosis. SL: KPATEL-M 08/03/2017 [facility] Chest 1view DX EXAM: XR CHEST 1 VIEW DATE: 08/02/2017 9:33 PM [employer] INDICATION: Tachycardia. COMPARISON: 01/10/2017. TECHNIQUE: A single AP view of the chest was obtained. FINDINGS: No focal consolidation or pneumothorax is identified. The cardiomediastinal silhouette is within normal limits. The costophrenic recesses are sharp and without effusion. No acute osseous abnormality is noted. IMPRESSION: No acute cardiopulmonary abnormality. SL: [id number] 08/02/2017 [facility] Ankle 3 views DX Clinical Indication: - pain fall; Comparison: None FINDINGS: AP, oblique, and lateral radiographs of the left ankle were obtained. No acute fracture or dislocation is identified. Visualized joint spaces are preserved. No soft tissue swelling or radiopaque foreign body is seen. There is no soft tissue gas or osseous erosive change noted. IMPRESSION: 1. No fracture or dislocation of the left ankle. SL: [id number] 07/10/2017 [facility] Tibia fibula series DX Clinical Indication: - pain; Comparison: None FINDINGS: AP and lateral radiographs of the left tibia and fibula were obtained. No fracture or dislocation is seen. The visualized knee and ankle joints are unremarkable. There is no soft tissue swelling or radiopaque foreign body. IMPRESSION: 1. No acute fracture or dislocation of the left tibia or fibula. SL: [id number] 07/10/2017 [facility] Knee 3 views DX Clinical Indication: - pain fall; Comparison: None FINDINGS: AP, oblique, lateral, and sunrise patellar radiographs of the left knee were obtained. No fracture or dislocation is identified. The medial and lateral tibiofemoral compartments and patellofemoral compartment are unremarkable. There is no knee region soft tissue swelling. Moderate suprapatellar joint effusion is seen. IMPRESSION: Moderate suprapatellar joint effusion. No fracture or dislocation of the left knee. SL: [id number] 07/10/2017 [facility] Abdomen/Pelvis w IV contrast CT CT abdomen pelvis with contrast: Multiplanar helical imaging acquired from the diaphragm 2 the pubic symphysis after IV injection 100 mL Omnipaque 300. No oral contrast given. DLP: 2292 mGy/cm. COMPARISON: 12/03/2016. HISTORY: Abdominal pain, diarrhea. FINDINGS: Lung bases are clear. Diminished density of the liver suggests fatty infiltration. No focal liver lesion or dilated biliary ducts. The gallbladder, pancreas, spleen and adrenal glands are unremarkable. Abdominal aorta is normal caliber without aneurysm. Kidneys enhance normally. No mass or hydronephrosis. No adenopathy in the retroperitoneum. Large and small bowel loops are normal in caliber. No intestinal obstruction or bowel wall thickening. Urinary bladder, uterus and adnexal structures unremarkable. No adnexal mass or cyst. No ascites or pelvic adenopathy. Review on bone window shows no acute bony pathology. IMPRESSION: 1. No acute abnormality in the abdomen or pelvis. 2. Probable mild fatty infiltration of liver. SL: VALERIE 04/23/2017 [facility] 2 views DX Patient Name: ALEM RAWLS : 1990; Age: 26 years y/o Female MR: [id number] * CHEST, 2 views HISTORY: Cough and fever COMPARISON: 2016. TECHNIQUE: Frontal and lateral radiographs of the chest were obtained. FINDINGS: The lungs are clear. There are no pleural effusions. The heart and pulmonary vasculature are within normal limits. The regional skeleton is unremarkable. IMPRESSION: 1. No active disease. SL: REJI 01/10/2017 [facility] Chest 1view DX Patient Name: ALEM RAWLS : 1990; Age: 26 years Female MR: [id number] Study: Chest 1view DX Order Time: 12/18/2016 2:47 AM CDT CLINICAL INDICATION: abdomen pain - RUQ pain COMPARISON: Chest radiograph on 03/17/2016 FINDINGS: Lines: None. Lungs: The lungs are grossly clear. Mediastinum: The cardiac silhouette is within normal limits of size. Midline trachea. Bones and soft tissues: No acute abnormalities. IMPRESSION: No acute cardiopulmonary abnormalities. SL: [id number] 12/18/2016 [facility] ED Abdomen/Pelvis IV contrast only CT Exam: CT Abdomen \\T\\ Pelvis History: Bilateral rib area pain DLP: 2308.74 Technique: Serial axial enhanced images of the abdomen and pelvis with reconstruction images are provided. Findings: Lung bases are clear. No pleural effusions are seen. Enlarged liver measures 27 cm in craniocaudal dimension. Gallbladder, spleen, adrenal glands, kidneys and pancreas are normal. There is no free fluid or bulky lymphadenopathy. Bowel loops and appendix are normal. Aorta, bladder and uterus are normal. Impression: Hepatomegaly. 12/03/2016 [facility] Abdomen RUQ US Patient Name: ALEM RAWLS : 1990; Age: 26 years y/o Female MR: [id number] Study: Abdomen RUQ US 12/03/2016 3:38 AM CDT Ordering Physician: Jaron Orosco Clinical Indication: Abdominal pain, acute - Leukocytosis\\E\\epigastric pain Comparison: None TECHNIQUE: Grayscale and limited color sonographic evaluation of the gallbladder was performed with standard technique. FINDINGS: LIVER: The liver is mildly enlarged measuring 22.2 cm maximum craniocaudal dimension. The hepatic echotexture is diffusely increased and coarsened associated with peripheral ultrasound beam attenuation consistent with steatosis. No focal hepatic lesion is appreciated. BILE DUCTS: No evidence of intrahepatic or extrahepatic biliary ductal dilatation. The visualized common bile duct measures 5 mm at maximum. Portions of the distal common bile duct are never well-visualized. GALLBLADDER: No evidence of cholelithiasis, gallbladder sludge, pericholecystic fluid, or gallbladder wall thickening. PANCREAS: The visualized portions of the pancreas are normal. KIDNEY: The right renal size, shape, and echotexture are normal without nephrolithiasis, hydronephrosis, or focal lesion. Right kidney: 13.3 x 5.8 x 6.7 cm. AORTA AND INFERIOR VENA CAVA: The visualized portions are normal.. ASCITES: No significant fluid accumulation. IMPRESSION: 1. Mild hepatomegaly and steatosis. SL: TPAINTER-PC 12/03/2016 [facility] Brain wo contrast CT Brain wo contrast CT CLINICAL HISTORY: Headache with Dizziness and Giddiness; COMPARISON: None TECHNIQUE: Contiguous transaxial images of the brain were performed without administration of IV contrast. Reformations were performed in sagittal and coronal projections. FINDINGS: BRAIN PARENCHYMA: There is no evidence for space-occupying lesions, mass effect or vasogenic edema. No evidence for parenchymal bleed, extra-axial collections or midline shift. No acute infarct is noted. Cerebral volume is within normal limits. No ventriculomegaly. The basilar cisterns are normal. Cerebellum demonstrates normal morphology and volume. CALVARIUM AND SKULL BASE: No displaced bony fractures or other significant bony abnormality is visualized. BRAINSTEM, SELLA AND ORBITS: No evidence for Chiari malformation. No space- occupying lesion is visualized in the sella. Visualized portion of the orbits are unremarkable. MASTOIDS AND PARANASAL SINUSES: The visualized paranasal sinuses are clear. Mastoid air cells are clear bilaterally. IMPRESSION: No acute brain abnormality is noted. : [id number] 03/17/2016 [facility] Chest 2 views DX PA and lateral chest: The cardiomediastinal silhouette, pulmonary vasculature and jerman are within normal limits. The lungs and pleural spaces are clear. There are no significant osseous abnormalities. IMPRESSION: No acute radiographic abnormalities in the chest. [id number] 03/17/2016 [facility] Consultation Notes No Data Provided for This Section Discharge Summaries No Data Provided for This Section History and Physicals No Data Provided for This Section Vital Signs Vital Sign Value Date Comments Source Respitory Rate 20 12/09/2018 [facility] Temperature Oral (F) 98.5 F 12/09/2018 [facility] Systolic (mm Hg) 149 12/09/2018 [facility] Diastolic (mm Hg) 88 12/09/2018 [facility] Heart Rate 87 12/09/2018 [facility] Respitory Rate 20 12/08/2018 [facility] Heart Rate 92 12/08/2018 [facility] Temperature Oral (F) 98 F 12/08/2018 [facility] Systolic (mm Hg) 151 12/08/2018 [facility] Diastolic (mm Hg) 109 12/08/2018 [facility] BMI Calculated 40.44 12/08/2018 [facility] Height 167.64 cm 12/08/2018 [facility] Weight 113.636 12/08/2018 [facility] Temperature Oral (F) 97.6 F 12/08/2018 [facility] Systolic (mm Hg) 170 12/08/2018 [facility] Diastolic (mm Hg) 128 12/08/2018 [facility] Heart Rate 107 12/08/2018 [facility] Respitory Rate 22 12/08/2018 [facility] Weight 113.636 12/08/2018 [facility] Height 167.64 cm 12/08/2018 [facility] BMI Calculated 40.44 12/08/2018 [facility] Systolic (mm Hg) 148 12/08/2018 [facility] Diastolic (mm Hg) 102 12/08/2018 [facility] Heart Rate 116 12/08/2018 [facility] Temperature Oral (F) 98.1 F 12/08/2018 [facility] Respitory Rate 20 12/08/2018 [facility] Systolic (mm Hg) 119 10/19/2018 [facility] Diastolic (mm Hg) 80 10/19/2018 [facility] Respitory Rate 18 10/19/2018 [facility] Systolic (mm Hg) 128 10/19/2018 [facility] Diastolic (mm Hg) 80 10/19/2018 [facility] Respitory Rate 20 10/19/2018 [facility] Respitory Rate 9 10/19/2018 [facility] Weight 109.091 10/19/2018 [facility] BMI Calculated 38.82 10/19/2018 [facility] Height 167.64 cm 10/19/2018 [facility] Temperature Oral (F) 98.1 F 10/19/2018 [facility] Systolic (mm Hg) 132 10/19/2018 [facility] Diastolic (mm Hg) 86 10/19/2018 [facility] Heart Rate 102 10/19/2018 [facility] Heart Rate 95 10/17/2018 [facility] Respitory Rate 18 10/17/2018 [facility] Systolic (mm Hg) 128 10/17/2018 [facility] Diastolic (mm Hg) 94 10/17/2018 [facility] Respitory Rate 18 10/17/2018 [facility] Systolic (mm Hg) 133 10/17/2018 [facility] Diastolic (mm Hg) 84 10/17/2018 [facility] Heart Rate 98 10/17/2018 [facility] Weight 109.091 10/17/2018 [facility] Height 167.64 cm 10/17/2018 [facility] BMI Calculated 38.82 10/17/2018 [facility] Temperature Oral (F) 97.9 F 10/17/2018 [facility] Systolic (mm Hg) 156 10/17/2018 [facility] Diastolic (mm Hg) 100 10/17/2018 [facility] Heart Rate 114 10/17/2018 [facility] Respitory Rate 18 10/17/2018 [facility] Heart Rate 95 08/09/2018 [facility] Respitory Rate 18 08/09/2018 [facility] Systolic (mm Hg) 124 08/09/2018 [facility] Diastolic (mm Hg) 88 08/09/2018 [facility] Temperature Oral (F) 98.9 F 08/08/2018 [facility] Systolic (mm Hg) 128 08/08/2018 [facility] Diastolic (mm Hg) 77 08/08/2018 [facility] Respitory Rate 18 08/08/2018 [facility] Heart Rate 90 08/08/2018 [facility] Temperature Oral (F) 99 F 08/08/2018 [facility] Respitory Rate 18 08/08/2018 [facility] Heart Rate 126 08/08/2018 [facility] Systolic (mm Hg) 160 08/08/2018 [facility] Diastolic (mm Hg) 102 08/08/2018 [facility] Systolic (mm Hg) 144 04/12/2018 [facility] Diastolic (mm Hg) 96 04/12/2018 [facility] Temperature Oral (F) 98.1 F 04/12/2018 [facility] Heart Rate 88 04/12/2018 [facility] Respitory Rate 18 04/12/2018 [facility] BMI Calculated 45.29 04/12/2018 [facility] Weight 127.273 04/12/2018 [facility] Height 167.64 cm 04/12/2018 [facility] Systolic (mm Hg) 164 04/12/2018 [facility] Diastolic (mm Hg) 106 04/12/2018 [facility] Heart Rate 97 04/12/2018 [facility] Respitory Rate 18 04/12/2018 [facility] Temperature Oral (F) 97.9 F 04/12/2018 [facility] Systolic (mm Hg) 111 01/21/2018 [facility] Diastolic (mm Hg) 86 01/21/2018 [facility] Respitory Rate 18 01/21/2018 [facility] Heart Rate 84 01/21/2018 [facility] Respitory Rate 18 01/21/2018 [facility] Systolic (mm Hg) 145 01/21/2018 [facility] Diastolic (mm Hg) 93 01/21/2018 [facility] Weight 113.636 01/21/2018 [facility] BMI Calculated 40.44 01/21/2018 [facility] Height 167.64 cm 01/21/2018 [facility] Systolic (mm Hg) 140 01/21/2018 [facility] Diastolic (mm Hg) 103 01/21/2018 [facility] Respitory Rate 18 01/21/2018 [facility] Heart Rate 110 01/21/2018 [facility] Temperature Oral (F) 97.9 F 01/21/2018 [facility] Systolic (mm Hg) 134 10/28/2017 [facility] Diastolic (mm Hg) 82 10/28/2017 [facility] Heart Rate 84 10/28/2017 [facility] Respitory Rate 18 10/28/2017 [facility] Temperature Oral (F) 97.8 F 10/28/2017 [facility] Respitory Rate 18 10/28/2017 [facility] Systolic (mm Hg) 140 10/28/2017 [facility] Diastolic (mm Hg) 82 10/28/2017 [facility] Heart Rate 88 10/28/2017 [facility] Temperature Oral (F) 97.7 F 10/28/2017 [facility] Respitory Rate 20 10/28/2017 [facility] Systolic (mm Hg) 132 10/28/2017 [facility] Diastolic (mm Hg) 89 10/28/2017 [facility] Heart Rate 88 10/28/2017 [facility] Temperature Oral (F) 98 F 10/28/2017 [facility] BMI Calculated 43.67 10/27/2017 [facility] Height 167.64 cm 10/27/2017 [facility] Weight 122.727 10/27/2017 [facility] Systolic (mm Hg) 126 08/03/2017 [facility] Diastolic (mm Hg) 70 08/03/2017 [facility] Respitory Rate 19 08/03/2017 [facility] Respitory Rate 27 08/03/2017 [facility] Systolic (mm Hg) 117 08/03/2017 [facility] Diastolic (mm Hg) 81 08/03/2017 [facility] Respitory Rate 26 08/03/2017 [facility] Systolic (mm Hg) 130 08/03/2017 [facility] Diastolic (mm Hg) 68 08/03/2017 [facility] Heart Rate 142 08/03/2017 [facility] Temperature Oral (F) 98.9 F 08/03/2017 [facility] BMI Calculated 40.76 08/03/2017 [facility] Weight 114.545 08/03/2017 [facility] Heart Rate 154 08/03/2017 [facility] Height 167.64 cm 08/03/2017 [facility] Temperature Oral (F) 98.8 F 08/03/2017 [facility] Temperature Oral (F) 98.6 F 07/11/2017 [facility] Diastolic (mm Hg) 99 07/11/2017 [facility] Systolic (mm Hg) 148 07/11/2017 [facility] Respitory Rate 18 07/11/2017 [facility] Heart Rate 87 07/11/2017 [facility] BMI Calculated 41.24 07/11/2017 [facility] Heart Rate 88 07/11/2017 [facility] Height 167.64 cm 07/11/2017 [facility] Weight 115.909 07/11/2017 [facility] Systolic (mm Hg) 155 07/11/2017 [facility] Diastolic (mm Hg) 112 07/11/2017 [facility] Temperature Oral (F) 98.5 F 07/11/2017 [facility] Respitory Rate 16 07/11/2017 [facility] Temperature Oral (F) 97.8 F 04/23/2017 [facility] Systolic (mm Hg) 131 04/23/2017 [facility] Diastolic (mm Hg) 82 04/23/2017 [facility] Temperature Oral (F) 98 F 04/23/2017 [facility] Systolic (mm Hg) 132 04/23/2017 [facility] Diastolic (mm Hg) 93 04/23/2017 [facility] Systolic (mm Hg) 138 04/23/2017 [facility] Diastolic (mm Hg) 94 04/23/2017 [facility] Respitory Rate 18 04/23/2017 [facility] Temperature Oral (F) 97.9 F 04/23/2017 [facility] Weight 118.182 04/23/2017 [facility] Respitory Rate 20 04/23/2017 [facility] Heart Rate 120 04/23/2017 [facility] BMI Calculated 42.05 04/23/2017 [facility] Height 167.64 cm 04/23/2017 [facility] Temperature Oral (F) 97.8 F 01/11/2017 [facility] Heart Rate 84 01/11/2017 [facility] Systolic (mm Hg) 111 01/11/2017 [facility] Diastolic (mm Hg) 66 01/11/2017 [facility] Respitory Rate 16 01/11/2017 [facility] Temperature Oral (F) 97.6 F 01/11/2017 [facility] Heart Rate 88 01/11/2017 [facility] Respitory Rate 16 01/11/2017 [facility] Systolic (mm Hg) 109 01/11/2017 [facility] Diastolic (mm Hg) 68 01/11/2017 [facility] Systolic (mm Hg) 108 01/11/2017 [facility] Diastolic (mm Hg) 67 01/11/2017 [facility] Temperature Oral (F) 98.3 F 01/11/2017 [facility] Respitory Rate 18 01/11/2017 [facility] Heart Rate 108 01/11/2017 [facility] Weight 118.182 01/10/2017 [facility] Respitory Rate 18 12/18/2016 [facility] Temperature Oral (F) 98.5 F 12/18/2016 [facility] Heart Rate 78 12/18/2016 [facility] Systolic (mm Hg) 136 12/18/2016 [facility] Diastolic (mm Hg) 79 12/18/2016 [facility] Weight 117.273 12/18/2016 [facility] BMI Calculated 41.73 12/18/2016 [facility] Systolic (mm Hg) 150 12/18/2016 [facility] Diastolic (mm Hg) 94 12/18/2016 [facility] Heart Rate 92 12/18/2016 [facility] Respitory Rate 16 12/18/2016 [facility] Height 167.64 cm 12/18/2016 [facility] Respitory Rate 18 12/03/2016 [facility] Temperature Oral (F) 98 F 12/03/2016 [facility] Heart Rate 74 12/03/2016 [facility] Systolic (mm Hg) 125 12/03/2016 [facility] Diastolic (mm Hg) 75 12/03/2016 [facility] Systolic (mm Hg) 120 12/03/2016 [facility] Diastolic (mm Hg) 70 12/03/2016 [facility] Respitory Rate 18 12/03/2016 [facility] Heart Rate 76 12/03/2016 [facility] Respitory Rate 19 12/03/2016 [facility] Heart Rate 78 12/03/2016 [facility] Systolic (mm Hg) 126 12/03/2016 [facility] Diastolic (mm Hg) 77 12/03/2016 [facility] Temperature Oral (F) 97.9 F 12/03/2016 [facility] Temperature Oral (F) 98 F 12/03/2016 [facility] BMI Calculated 41.73 12/03/2016 [facility] Weight 117.273 12/03/2016 [facility] Height 167.64 cm 12/03/2016 [facility] Systolic (mm Hg) 136 03/17/2016 [facility] Diastolic (mm Hg) 98 03/17/2016 [facility] Respitory Rate 20 03/17/2016 [facility] Systolic (mm Hg) 134 03/17/2016 [facility] Diastolic (mm Hg) 107 03/17/2016 [facility] Respitory Rate 22 03/17/2016 [facility] Temperature Oral (F) 98.2 F 03/17/2016 [facility] Heart Rate 107 03/17/2016 [facility] Diastolic (mm Hg) 101 03/17/2016 [facility] Systolic (mm Hg) 157 03/17/2016 [facility] Weight 113.636 03/17/2016 [facility] Height 167.64 cm 03/17/2016 [facility] BMI Calculated 40.44 03/17/2016 [facility] Respitory Rate 18 03/17/2016 [facility] Temperature Oral (F) 98.1 F 03/17/2016 [facility] Heart Rate 111 03/17/2016 [facility] Encounters Location Location Details Encounter Type Encounter Number Reason For Visit Attending Provider ADM Date DC Date Status Source OD [id number] - BRONCHITIS NOS NATALY RAMIREZ 01/07/2012 Active [facility] [id number] Derrick Albarado 03/17/2016 03/17/2016 [facility] [id number] Auugsto Pitts 12/03/2016 12/03/2016 [facility] [id number] Bhavin Peña 12/18/2016 12/18/2016 [facility] [id number] Sally Osman 01/10/2017 01/11/2017 [facility] [id number] Renae Raya 04/23/2017 04/23/2017 [facility] [id number] Ron Skeltonwisa 07/11/2017 07/11/2017 [facility] [id number] Olivia Barnett 08/03/2017 08/03/2017 [facility] [id number] Dre Lowe 10/21/2017 10/21/2017 [facility] [id number] Candice Lovelace 10/27/2017 10/28/2017 [facility] [id number] Dre Lowe 12/20/2017 12/21/2017 [facility] Emergency [id number] Raómn Bartsoff 01/21/2018 01/21/2018 [facility] Patients [id number] Dre Lowe 02/06/2018 03/08/2018 [facility] [id number] Todd Collins 04/12/2018 [facility] [id number] Dre Lowe 06/15/2018 07/15/2018 [facility] OP Therapy Patients [id number] Dre Lowe 07/17/2018 08/16/2018 [facility] Emergency [id number] Ron Skeltonwuma 08/08/2018 08/09/2018 [facility] [id number] Ramón Bartsoff 10/17/2018 10/17/2018 [facility] [id number] Renzo Barnett 10/19/2018 10/19/2018 [facility] [id number] Ron Magana 12/08/2018 12/08/2018 [facility] [id number] Bhumika Ruiz 12/08/2018 12/09/2018 [facility] Procedures Procedure Code Date Perfomer Comments Source Arthrocentesis, aspiration and/or injection, major joint or bursa (eg, shoulder, hip, knee, subacromial bursa); with ultrasound guidance, with permanent recording and reporting 12/20/2017 [facility] - Caesarean section [id number] [facility] Lumpectomy [id number] [facility] - Caesarean section [id number] [facility] Lumpectomy [id number] [facility] CS - Caesarean section [id number] [facility] Lumpectomy [id number] [facility] Assessment and Plan Assessment and Plan Date Source Extracted from:Title: Cardiology Consult Author: Abiodun Monique MD Date: 10/19/18 [facility] Consult Note Attending: Todd Guadalupe MD Service: Emergency Medicine Code status: None Specified=FULL CODE Reason for Admission: HIGH BP Working DRG: Isolation: None Documented Consulting Physicians: Abiodun Monique MD Office: Service: Cardiology Reason for Consultation: STEMI activation Chief Complaint: nausea, vomiting, diarrhea HPI: 28 yo with no prior cardiac hx, diabetes, HTN who has been feeling ill past two days with nausea, vomiting and diarrhea. Poor PO intake. She presented today because she felt weak and dehydrated. Has chest pain when she is vomiting. No hemoptysis or hematemesis. No heart failure symptoms. Review of Systems: 10 point review of system was performed and was negative other than mentioned in HPI. Past Medical History: Diabetes Abdominal pain in female H/O: HTN (hypertension) Family History: Father: High blood pressure; Irregular heart beat Social History: Tobacco Details: Use: Never smoker. Type: Cigarettes. Tobacco smoke exposure: None. Did the Patient Smoke Cigarettes Anytime During the Last 365 Days? No. Cessation Counseling Provided? No. Details: Use: Never smoker. Previous treatment: None. Ready to change: No. Household tobacco concerns: No. Tobacco smoke exposure: None. Did the Patient Smoke Cigarettes Anytime During the Last 365 Days? No. Cessation Counseling Provided? No. Exam: Vitals Tmp(F) Pulse BP RR SpO2 FIO2 10/19 15:38 ---- 87 128/80 20 99 --- 10/19 12:58 ---- 109 ----- 9 100 --- 10/19 12:38 98.1 102 132/86 18 97 --- 24 Hr Tmax: 98.1F (36.72c) at 10/19 12:38 Vital Signs are the last 5 in the past 48 hours. Date Wt(kg) Wt(lb) Ht(cm) Ht(in) Method 10/19 (initial) 109.09 240.00 Estimated 10/19 167.64 66.00 Stated Eyes: conjunctivae clear. ENMT: normal mucosa. No pallor or bleeding. Neck: No jugular venous distention. MSK: Normal muscle tone and strength. No atrophy or abnormal movements. Extremities: No clubbing or cyanosis. Skin: No venous stasis changes or ulcers. General: well developed. well nourished. obese. Cardiovascular: PMI non displaced. regular. S1 and S2. No murmurs, rubs or gallops. Normal carotid pulses. Palpable femoral pulses. Palpable pedal pulses. No peripheral edema or varicosities. Respiratory: No respiratory distress. Clear to auscultation bilaterally. Abdomen: soft, non-tender, no masses. No hepato- or splenomegaly. Neuro/Psych: Alert and oriented to person, place and time. Normal affect. Allergies: NKDA Medications (5) Active Scheduled Meds: None Unscheduled Meds: None PRN Meds: None One Time Meds (5): 10/19/18 (Completed) Sodium Chloride 0.9% IV (Sodium Chloride 0.9% (Bolus) IV) 1,000 mL IV ONCE 10/19/18 (Ordered) Sodium Chloride 0.9% IV (Sodium Chloride 0.9% (Bolus) IV) 1,000 mL IV ONCE 1000 ml/hr 10/19/18 (Ordered) acetaminophen-hydrocodone ([place] 5/325 oral tablet) 1 tab PO ONCE 10/19/18 (Completed) morphine Sulfate 4 mg IVP ONCE 10/19/18 (Completed) ondansetron (Zofran) 4 mg IVP ONCE Continuous Infusions: None Labs (Last four charted values) WBC H 16.9 (OCT 19) Hgb 13.8 (OCT 19) Hct 42.2 (OCT 19) Plt 366 (OCT 19) Na 138 (OCT 19) K 4.1 (OCT 19) CO2 L 23 (OCT 19) Cl 103 (OCT 19) Cr 0.75 (OCT 19) BUN 9 (OCT 19) Glucose Random H 340 (OCT 19) Ca 8.5 (OCT 19) Troponin <0.02 (OCT 19) Imaging: Reviewed. Telemetry: NSR ECG: Normal ECG with early repol. No evidence of ischemia. Echo: none Stress: none Cath: none Assessment: Epigastric pain (R10.13) Noninfective gastroenteritis and colitis, unspecified (K52.9) Plan: -not STEMI, ECG normal -will sign off, please call if clinical status changes / further questions. Thank you for involving us in this patient's care. 10/19/2018 [facility] Plan of Care No Data Provided for This Section Social History Social History Date Source Social History TypeResponse Smoking Status Never smoker; Type: Cigarettes; Exposure to Tobacco Smoke None; Cigarette Smoking Last 365 Days No; Reg Smoking Cessation Counseling No entered on: 12/08/18 12/09/2018 [facility] Social History TypeResponse Smoking Status Never smoker; Type: Cigarettes; Exposure to Tobacco Smoke None; Cigarette Smoking Last 365 Days No; Reg Smoking Cessation Counseling No entered on: 12/08/18 12/09/2018 [facility] Social History TypeResponse Smoking Status Never smoker; Previous treatment: None; Ready to change: No; Concerns about tobacco use in household: No; Exposure to Tobacco Smoke None; Cigarette Smoking Last 365 Days No; Reg Smoking Cessation Counseling No entered on: 01/21/18 01/21/2018 [facility] Hutchison Family History No Data Provided for This Section Advance Directives No Data Provided for This Section Functional Status No Data Provided for This Section
--- OUTSIDE RECORDS SUMMARY | 2019-03-27 16:44 | XMS REPORT | Summary of Care ---
Author Author [facility] Organization [facility] Address Unknown Phone Unavailable Encounter CLARK Shen(SABAS) [id number] Date(s): 04/22/17 - 04/23/17 [facility] [address] [place] [address]- Discharge Diagnosis: Abdominal pain Discharge Disposition: Home or Self Care Attending Physician: Renae Raya MD Vital Signs 1 2 3 Most recent to oldest [Reference Range]: 167.64 cm (04/22/17 10:54 PM) Height 97.8 DegF (04/23/17 5:01 AM) 98 DegF (04/23/17 4:00 AM) 97.9 DegF (04/23/17 1:24 AM) Temperature Oral [96.4-99.1 DegF] 131/82 mmHg (04/23/17 5:01 AM) 132/93 mmHg (04/23/17 4:00 AM) 138/94 mmHg (04/23/17 3:00 AM) Blood Pressure [90-140/60-90 mmHg] 18 BRMIN (04/23/17 1:24 AM) 20 BRMIN (04/22/17 10:54 PM) Respiratory Rate [14-20 BRMIN] 120 bpm *HI* (04/22/17 10:54 PM) Peripheral Pulse Rate [60-100 bpm] 118.182 kg (04/22/17 10:54 PM) Weight 42.05 m2 (04/22/17 10:54 PM) Body Mass Index Problem List Condition Effective Dates Status Health Status Informant Abdominal pain in Resolved female(Confirmed) Diabetes(Confirmed) Resolved H/O: HTN Resolved (hypertension)(Confi rmed) Allergies, Adverse Reactions, Alerts Substance Reaction Severity Status NKDA Active Medications morphine Sulfate 4 mg, 1 mL, Route: IVP, Drug form: SOLN, ONCE, Dosing Weight 118.182, kg, Priori ty: STAT, Start date: 04/23/17 0:40:00 CDT, Stop date: 04/23/17 0:40:00 CDT Notes: (Same as:MORPhine Sulfate) Start Date: 04/23/17 Stop Date: 04/23/17 Status: Completed morphine Sulfate 4 mg, Route: IVP, ONCE, Dosing Weight 118.182, kg, Priority: STAT, Start date: 0 04/23/17 4:05:00 CDT, Stop date: 04/23/17 4:05:00 CDT Start Date: 04/23/17 Stop Date: 04/23/17 Status: Completed NS (Bolus) IV 1,000 mL, 1,000 ml/hr, Infuse Over: 1 hr, Route: IV, 1,000, Drug form: INJ, ONCE , Priority: STAT, Dosing Weight 118.182 kg, Start date: 04/23/17 0:40:00 CDT, Du ration: 1 doses or times, Stop date: 04/23/17 0:40:00 CDT Start Date: 04/23/17 Stop Date: 04/23/17 Status: Completed Saline Flush 0.9% 10 mL, Route: IVP, Drug Form: INJ, Dosing Weight 118.182, kg, PRN, PRN Line Flus h, Start date: 04/22/17 22:57:00 CDT, Duration: 30 day, Stop date: 05/22/17 22:5 6:00 CDT Notes: (Same as: BD Posiflush) Start Date: 04/22/17 Stop Date: 04/23/17 Status: Discontinued Ultram 50 mg oral tablet 50 mg=1 tab, PO, Q4H, PRN pain, X 3 day, # 20 tab, 0 Refill(s) Start Date: 04/23/17 Stop Date: 04/26/17 Status: Ordered Zofran 4 mg, 2 mL, Route: IVP, Drug form: INJ, ONCE, Dosing Weight 118.182, kg, Priorit y: STAT, Start date: 04/23/17 0:40:00 CDT, Stop date: 04/23/17 0:40:00 CDT Notes: (Same as: Zofran) MEDICATION WASTE Product Size: 4 mgProduct Was jj: ___ mg Start Date: 04/23/17 Stop Date: 04/23/17 Status: Completed Zofran 4 mg, Route: IVP, Drug form: INJ, ONCE, Dosing Weight 118.182, kg, Priority: STA T, Start date: 04/23/17 4:05:00 CDT, Stop date: 04/23/17 4:05:00 CDT Start Date: 04/23/17 Stop Date: 04/23/17 Status: Completed Results ELECTROLYTES Most recent to 1 oldest [Reference Range]: Sodium Lvl [135-145 134 mEq/L mEq/L] *LOW* (04/22/17 11:59 PM) Potassium Lvl 4.0 mEq/L [3.5-5.1 mEq/L] (04/22/17 11:59 PM) Chloride Lvl [95-109 97 mEq/L mEq/L] (04/22/17 11:59 PM) CO2 [24-32 mEq/L] 28 mEq/L (04/22/17 11:59 PM) AGAP [10.0-20.0 13.0 mEq/L mEq/L] (04/22/17 11:59 PM) CHEM PANEL Most recent to 1 oldest [Reference Range]: Creatinine Lvl 0.86 mg/dL [0.50-1.40 mg/dL] (04/22/17 11:59 PM) eGFR 93 mL/min/1.73m2 1 *NA* (04/22/17 11:59 PM) BUN [7-22 mg/dL] 7 mg/dL (04/22/17 11:59 PM) B/C Ratio [6-25] 8 (04/22/17 11:59 PM) Glucose Lvl [70-99 440 mg/dL 2 mg/dL] *CRIT* (04/22/17 11:59 PM) Total Protein 7.9 g/dL [6.4-8.4 g/dL] (04/22/17 11:59 PM) Albumin Lvl [3.5-5.0 3.5 g/dL g/dL] (04/22/17 11:59 PM) Globulin [2.7-4.2 4.4 g/dL g/dL] *HI* (04/22/17 11:59 PM) A/G Ratio [0.7-1.6] 0.8 (04/22/17 11:59 PM) Calcium Lvl 8.5 mg/dL [8.5-10.5 mg/dL] (04/22/17 11:59 PM) ALT [0-65 unit/L] 33 unit/L (04/22/17 11:59 PM) AST [0-37 unit/L] 17 unit/L (04/22/17 11:59 PM) Alk Phos [39-136 91 unit/L unit/L] (04/22/17 11:59 PM) Bili Total [0.2-1.3 0.5 mg/dL mg/dL] (04/22/17 11:59 PM) Amylase Lvl [25-115 57 unit/L unit/L] (04/22/17 11:59 PM) Lipase Lvl [73-393 150 unit/L unit/L] (04/22/17 11:59 PM) 1Result Comment: The eGFR is calculated using the [...] from the National Kid[employer] Disease Education Program ( NKDEP) which additionally recommends that when the eGFR is used in patients with extremes of body mass index for purposes of drug dosing, the eGFR should be mul tiplied by the estimated BMI. 2Result Comment: Critical Result(s) called to Tucker Reynoso at 04/23/2017 00:40 by_[email or web address]. Read back OK. URINE CHEM Most recent to 1 oldest [Reference Range]: U Preg [Negative] Negative (04/23/17 12:13 AM) URINE AND STOOL Most recent to 1 oldest [Reference Range]: UA Turbidity [Clear] Slight *ABN* (04/23/17 12:13 AM) UA Color Ltyellow *NA* (04/23/17 12:13 AM) UA pH [5.0-8.0] 5.0 (04/23/17 12:13 AM) UA Spec Grav 1.032 [<=1.030] *HI* (04/23/17 12:13 AM) UA Glucose [Negative 500 mg/dL mg/dL] *ABN* (04/23/17 12:13 AM) UA Blood [Negative] Negative (04/23/17 12:13 AM) UA Ketones [Negative Negative mg/dL mg/dL] *NA* (04/23/17 12:13 AM) UA Protein [Negative Negative mg/dL mg/dL] (04/23/17 12:13 AM) UA Urobilinogen <=1.0 mg/dL [0.1-1.0 mg/dL] *NA* (04/23/17 12:13 AM) UA Bili [Negative] Negative *NA* (04/23/17 12:13 AM) UA Leuk Est Negative [Negative] (04/23/17 12:13 AM) UA Nitrite Negative [Negative] (04/23/17 12:13 AM) UA WBC [0-5 /HPF] 3 /HPF (04/23/17 12:13 AM) UA RBC [0-2 /HPF] 1 /HPF (04/23/17 12:13 AM) UA Bacteria [None Occasional /HPF Seen /HPF] *NA* (04/23/17 12:13 AM) UA Sq Epi [Few /LPF] Many /LPF *ABN* (04/23/17 12:13 AM) HEMATOLOGY Most recent to 1 oldest [Reference Range]: WBC [3.7-10.4 K/CMM] 12.5 K/CMM *HI* (04/22/17 11:59 PM) RBC [4.20-5.40 5.39 M/CMM M/CMM] (04/22/17 11:59 PM) Hgb [12.0-16.0 g/dL] 15.1 g/dL (04/22/17 11:59 PM) Hct [36.0-48.0 %] 45.6 % (04/22/17 11:59 PM) MCV [80.0-98.0 fL] 84.6 fL (04/22/17 11:59 PM) MCH [27.0-31.0 pg] 28.0 pg (04/22/17 11:59 PM) MCHC [32.0-36.0 33.1 g/dL g/dL] (04/22/17 11:59 PM) RDW [11.5-14.5 %] 13.0 % (04/22/17 11:59 PM) Platelet [133-450 343 K/CMM K/CMM] (04/22/17 11:59 PM) MPV [7.4-10.4 fL] 6.9 fL *LOW* (04/22/17 11:59 PM) Segs [45.0-75.0 %] 57.8 % (04/22/17 11:59 PM) Lymphocytes 33.9 % [20.0-40.0 %] (04/22/17 11:59 PM) Monocytes [2.0-12.0 4.8 % %] (04/22/17 11:59 PM) Eosinophils [0.0-4.0 2.7 % %] (04/22/17 11:59 PM) Basophils [0.0-1.0 0.8 % %] (04/22/17 11:59 PM) Segs-Bands # 7.2 K/CMM [1.5-8.1 K/CMM] (04/22/17 11:59 PM) Lymphocytes # 4.2 K/CMM [1.0-5.5 K/CMM] (04/22/17 11:59 PM) Monocytes # [0.0-0.8 0.6 K/CMM K/CMM] (04/22/17 11:59 PM) Eosinophils # 0.3 K/CMM [0.0-0.5 K/CMM] (04/22/17 11:59 PM) Basophils # [0.0-0.2 0.1 K/CMM K/CMM] (04/22/17 11:59 PM) Immunizations No data available for this section Procedures Procedure Date Related Diagnosis Body Site CS - Caesarean section Lumpectomy Social History Social History Type Response Smoking Status Never smoker; Previous treatment: None; Ready to change: No; Concerns about tobacco use in household: No; Exposure to Tobacco Smoke None; Cigarette Smoking Last 365 Days No; Reg Smoking Cessation Counseling No Assessment and Plan No data available for this section
--- OUTSIDE RECORDS SUMMARY | 2019-03-27 16:44 | XMS REPORT | Summary of Care ---
Author Author [facility] Organization [facility] Address Unknown Phone Unavailable Encounter CLARK Shen(SABAS) [id number] Date(s): 07/10/17 - 07/11/17 [facility] [address] [place] [address]- Discharge Diagnosis: Left knee pain Discharge Diagnosis: Abrasion, left knee, initial encounter Discharge Diagnosis: Left ankle pain Discharge Disposition: Home or Self Care Attending Physician: Ron Magaan DO Vital Signs Most recent to 1 2 oldest [Reference Range]: Height 167.64 cm (07/10/17 9:38 PM) Temperature Oral 98.6 DegF 98.5 DegF [96.4-99.1 DegF] (07/11/17 12:36 AM) (07/10/17 9:38 PM) Blood Pressure 155/112 mmHg [90-140/60-90 mmHg] *HI* (07/10/17 9:38 PM) Systolic Blood 148 mmHg Pressure [90-140 *HI* mmHg] (07/11/17 12:36 AM) Diastolic Blood 99 mmHg Pressure [60-90 *HI* mmHg] (07/11/17 12:36 AM) Respiratory Rate 18 BRMIN 16 BRMIN [14-20 BRMIN] (07/11/17 12:36 AM) (07/10/17 9:38 PM) Peripheral Pulse 87 bpm 88 bpm Rate [60-100 bpm] (07/11/17 12:36 AM) (07/10/17 9:38 PM) Weight 115.909 kg (07/10/17 9:38 PM) Body Mass Index 41.24 m2 (07/10/17 9:38 PM) Problem List Condition Effective Dates Status Health Status Informant Abdominal pain in Resolved female(Confirmed) Diabetes(Confirmed) Resolved H/O: HTN Resolved (hypertension)(Confi rmed) Allergies, Adverse Reactions, Alerts Substance Reaction Severity Status NKDA Active Medications ibuprofen 600 mg oral tablet 600 mg=1 tab, PO, Q6H, PRN Pain or Fever, Take with food, X 10 day, # 40 tab, 0 Refill(s) Start Date: 07/11/17 Stop Date: 07/21/17 Status: Ordered Medina 10/325 oral tablet 1 tab, Route: PO, Drug Form: TAB, Dosing Weight 115.909, kg, ONCE, STAT, Start d ate: 07/10/17 21:45:00 CDT, Stop date: 07/10/17 21:45:00 CDT Notes: Do not exceed 4gm/day of acetaminophen. (Same as: Medina 325/10) Start Date: 07/10/17 Stop Date: 07/11/17 Status: Completed Results No data available for this section Immunizations No data available for this section [...]
--- OUTSIDE RECORDS SUMMARY | 2019-03-27 16:44 | XMS REPORT | Summary of Care ---
Author Author [facility] Organization [facility] Address Unknown Phone Unavailable Encounter CLARK Shen(FIN) [id number] Date(s): 12/08/18 - 12/08/18 [facility] [address] [place] [address]- [phone] Encounter Diagnosis Acute headache (Discharge Diagnosis) - 12/08/18 Nausea and vomiting (Discharge Diagnosis) - 12/08/18 Discharge Disposition: Home or Self Care Attending Physician: Bhumika Ruiz MD Vital Signs 1 2 3 Most recent to oldest [Reference Range]: 167.64 cm (12/08/18 2:17 PM) Height 98.5 DegF (12/08/18 9:18 PM) 98 DegF (12/08/18 6:26 PM) 97.6 DegF (12/08/18 2:17 PM) Temperature Oral [96.4-99.1 DegF] 149/88 mmHg *HI* (12/08/18 9:18 PM) 151/109 mmHg *HI* (12/08/18 6:26 PM) 170/128 mmHg *HI* (12/08/18 2:17 PM) Blood Pressure [90-140/60-90 mmHg] 20 BRMIN (12/08/18 9:18 PM) 20 BRMIN (12/08/18 6:26 PM) 22 BRMIN *HI* (12/08/18 2:17 PM) Respiratory Rate [14-20 BRMIN] 87 bpm (12/08/18 9:18 PM) 92 bpm (12/08/18 6:26 PM) 107 bpm *HI* (12/08/18 2:17 PM) Peripheral Pulse Rate [60-100 bpm] 113.636 kg (12/08/18 2:17 PM) Weight 40.44 m2 (12/08/18 2:17 PM) Body Mass Index Problem List Condition Effective Dates Status Health Status Informant Abdominal pain in Resolved female(Confirmed) Diabetes(Confirmed) Resolved H/O: HTN Resolved (hypertension)(Confi rmed) Allergies, Adverse Reactions, Alerts Substance Reaction Severity Status NKDA Active Medications Compazine 30 mg, Route: IV, ONCE, Dosing Weight 113.636, kg, Start date: 12/08/18 19:42:00 CDT, Stop date: 12/08/18 19:42:00 CDT Start Date: 12/08/18 Stop Date: 12/08/18 Status: Completed ketOROLAC 30 mg, 1 mL, Route: IVP, Drug form: INJ, ONCE, Dosing Weight 113.636, kg, Priori ty: STAT, Start date: 12/08/18 14:20:00 CDT, Stop date: 12/08/18 14:20:00 CDT Notes: (Same as:Toradol) IV bolus must be given >15 seconds. Give IM administration slowly and deeply into the muscle.Not for use > 4 days MEDICATION WASTE Product Size: 30 mgProduct Wasted: ___ mg Start Date: 12/08/18 Stop Date: 12/08/18 Status: Completed NS (Bolus) IV 1,000 mL, 1,000 ml/hr, Infuse Over: 1 hr, Route: IV, 1,000, Drug form: INJ, ONCE , Priority: STAT, Dosing Weight 113.636 kg, Start date: 12/08/18 14:19:00 CDT, S top date: 12/08/18 14:19:00 CDT Start Date: 12/08/18 Stop Date: 12/08/18 Status: Completed Reglan 10 mg oral tablet 10 mg=1 tab, PO, QID-Before Meals, PRN nausea and vomiting, X 10 day, # 40 tab, 0 Refill(s) Start Date: 12/08/18 Stop Date: 12/18/18 Status: Ordered Tylenol 975 mg, Route: PO, Drug form: TAB, ONCE, Dosing Weight 113.636, kg, Priority: ST AT, Start date: 12/08/18 19:42:00 CDT, Stop date: 12/08/18 19:42:00 CDT Start Date: 12/08/18 Stop Date: 12/08/18 Status: Completed Zofran 4 mg, 2 mL, Route: IVP, Drug form: INJ, ONCE, Dosing Weight 113.636, kg, Priorit y: STAT, Start date: 12/08/18 14:19:00 CDT, Stop date: 12/08/18 14:19:00 CDT Notes: (Same as: Zofran) MEDICATION WASTE Product Size: 4 mgProduct Was jj: ___ mg Start Date: 12/08/18 Stop Date: 12/08/18 Status: Completed Results ELECTROLYTES Most recent to 1 oldest [Reference Range]: Sodium Lvl [135-145 138 mEq/L mEq/L] (12/08/18 3:25 PM) Potassium Lvl 4.1 mEq/L [3.5-5.1 mEq/L] (12/08/18 3:25 PM) Chloride Lvl [95-109 101 mEq/L mEq/L] (12/08/18 3:25 PM) CO2 [24-32 mEq/L] 27 mEq/L (12/08/18 3:25 PM) AGAP [10.0-20.0 14.1 mEq/L mEq/L] (12/08/18 3:25 PM) CHEM PANEL Most recent to 1 oldest [Reference Range]: Creatinine Lvl 0.69 mg/dL [0.50-1.40 mg/dL] (12/08/18 3:25 PM) eGFR 119 mL/min/1.73m2 1 *NA* (12/08/18 3:25 PM) BUN [7-22 mg/dL] 10 mg/dL (12/08/18 3:25 PM) B/C Ratio [6-25] 14 (12/08/18 3:25 PM) Glucose Lvl [70-99 326 mg/dL mg/dL] *HI* (12/08/18 3:25 PM) Total Protein 8.3 g/dL [6.4-8.4 g/dL] (12/08/18 3:25 PM) Albumin Lvl [3.5-5.0 3.8 g/dL g/dL] (12/08/18 3:25 PM) Globulin [2.7-4.2 4.5 g/dL g/dL] *HI* (12/08/18 3:25 PM) A/G Ratio [0.7-1.6] 0.8 (12/08/18 3:25 PM) Calcium Lvl 8.9 mg/dL [8.5-10.5 mg/dL] (12/08/18 3:25 PM) ALT [0-65 unit/L] 33 unit/L (12/08/18 3:25 PM) AST [0-37 unit/L] 16 unit/L (12/08/18 3:25 PM) Alk Phos [39-136 94 unit/L unit/L] (12/08/18 3:25 PM) Bili Total [0.2-1.3 0.7 mg/dL mg/dL] (12/08/18 3:25 PM) Lipase Lvl [73-393 95 unit/L unit/L] (12/08/18 3:25 PM) 1Result Comment: The eGFR is calculated [...] be mul tiplied by the estimated BMI. URINE CHEM Most recent to 1 oldest [Reference Range]: U Preg [Negative] Negative (12/08/18 3:59 PM) URINE AND STOOL Most recent to 1 oldest [Reference Range]: UA Turbidity [Clear] Clear (12/08/18 3:59 PM) UA Color Ltyellow *NA* (12/08/18 3:59 PM) UA pH [5.0-8.0] 6.0 (12/08/18 3:59 PM) UA Spec Grav 1.039 [<=1.030] *HI* (12/08/18 3:59 PM) UA Glucose [Negative 500 mg/dL mg/dL] *ABN* (12/08/18 3:59 PM) UA Blood [Negative] Negative (12/08/18 3:59 PM) UA Ketones Trace [Negative] *ABN* (12/08/18 3:59 PM) UA Protein Negative [Negative] (12/08/18 3:59 PM) UA Urobilinogen <=1.0 mg/dL [0.1-1.0 mg/dL] *NA* (12/08/18 3:59 PM) UA Bili [Negative] Negative *NA* (12/08/18 3:59 PM) UA Leuk Est Negative [Negative] (12/08/18 3:59 PM) UA Nitrite Negative [Negative] (12/08/18 3:59 PM) UA WBC [0-5 /HPF] <1 /HPF (12/08/18 3:59 PM) UA RBC [0-2 /HPF] 3 /HPF *HI* (12/08/18 3:59 PM) UA Sq Epi [Few /LPF] Occasional /LPF *NA* (12/08/18 3:59 PM) HEMATOLOGY Most recent to 1 oldest [Reference Range]: WBC [3.7-10.4 K/CMM] 11.8 K/CMM *HI* (12/08/18 3:25 PM) RBC [4.20-5.40 5.60 M/CMM M/CMM] *HI* (12/08/18 3:25 PM) Hgb [12.0-16.0 g/dL] 15.4 g/dL (12/08/18 3:25 PM) Hct [36.0-48.0 %] 46.3 % (12/08/18 3:25 PM) MCV [80.0-98.0 fL] 82.8 fL (12/08/18 3:25 PM) MCH [27.0-31.0 pg] 27.5 pg (12/08/18 3:25 PM) MCHC [32.0-36.0 33.2 g/dL g/dL] (12/08/18 3:25 PM) RDW [11.5-14.5 %] 13.1 % (12/08/18 3:25 PM) MPV [7.4-10.4 fL] 7.5 fL (12/08/18 3:25 PM) Platelet [133-450 392 K/CMM K/CMM] (12/08/18 3:25 PM) Segs [45.0-75.0 %] 57.5 % (12/08/18 3:25 PM) Lymphocytes 33.6 % [20.0-40.0 %] (12/08/18 3:25 PM) Monocytes [2.0-12.0 4.0 % %] (12/08/18 3:25 PM) Eosinophils [0.0-4.0 4.4 % %] *HI* (12/08/18 3:25 PM) Basophils [0.0-1.0 0.5 % %] (12/08/18 3:25 PM) Neutrophils # 6.8 K/CMM [1.5-8.1 K/CMM] (12/08/18 3:25 PM) Lymphocytes # 4.0 K/CMM [1.0-5.5 K/CMM] (12/08/18 3:25 PM) Monocytes # [0.0-0.8 0.5 K/CMM K/CMM] (12/08/18 3:25 PM) Eosinophils # 0.5 K/CMM [0.0-0.5 K/CMM] (12/08/18 3:25 PM) Basophils # [0.0-0.2 0.1 K/CMM K/CMM] (12/08/18 3:25 PM) Immunizations No data available for this section Procedures Procedure Date Related Diagnosis Body Site Status CS - Caesarean section Completed Lumpectomy Completed Social History Social History Type Response Smoking Status Never smoker; Type: Cigarettes; Exposure to Tobacco Smoke None; Cigarette Smoking Last 365 Days No; Reg Smoking Cessation Counseling No entered on: 12/08/18 Assessment and Plan No data available for this section
--- OUTSIDE RECORDS SUMMARY | 2019-03-27 16:44 | XMS REPORT | Summary of Care ---
Author Author [facility] Organization [facility] Address Unknown Phone Unavailable Encounter CLARK Shen(SABAS) [id number] Date(s): 12/07/18 - 12/08/18 [facility] [address] [place] [address]- Discharge Disposition: LBTC Left B4 Treatment Cmplt-MSE Cmplt Attending Physician: Ron Magana DO Vital Signs Most recent to 1 oldest [Reference Range]: Height 167.64 cm (12/07/18 9:20 PM) Temperature Oral 98.1 DegF [96.4-99.1 DegF] (12/07/18 9:20 PM) Blood Pressure 148/102 mmHg [90-140/60-90 mmHg] *HI* (12/07/18 9:20 PM) Respiratory Rate 20 BRMIN [14-20 BRMIN] (12/07/18 9:20 PM) Peripheral Pulse 116 bpm Rate [60-100 bpm] *HI* (12/07/18 9:20 PM) Weight 113.636 kg (12/07/18 9:20 PM) Body Mass Index 40.44 m2 (12/07/18 9:20 PM) Problem List Condition Effective Dates Status Health Status Informant Abdominal pain in Resolved female(Confirmed) Diabetes(Confirmed) Resolved H/O: HTN Resolved (hypertension)(Confi rmed) Allergies, Adverse Reactions, Alerts Substance Reaction Severity Status NKDA Active Medications No data available for this section Results URINE AND STOOL Most recent to 1 oldest [Reference Range]: UA Turbidity [Clear] Clear (12/08/18 1:17 AM) UA Color Ltyellow *NA* (12/08/18 1:17 AM) UA pH [5.0-8.0] 5.0 (12/08/18 1:17 AM) UA Spec Grav 1.039 [<=1.030] *HI* (12/08/18 1:17 AM) UA Glucose [Negative 500 mg/dL mg/dL] *ABN* (12/08/18 1:17 AM) UA Blood [Negative] Small *ABN* (12/08/18 1:17 AM) UA Ketones Negative [Negative] *NA* (12/08/18 1:17 AM) UA Protein Negative [Negative] (12/08/18 1:17 AM) UA Urobilinogen <=1.0 mg/dL [0.1-1.0 mg/dL] *NA* (12/08/18 1:17 AM) UA Bili [Negative] Negative *NA* (12/08/18 1:17 AM) UA Leuk Est Negative [Negative] (12/08/18 1:17 AM) UA Nitrite Negative [Negative] (12/08/18 1:17 AM) UA WBC [0-5 /HPF] <1 /HPF (12/08/18 1:17 AM) UA RBC [0-2 /HPF] <1 /HPF (12/08/18 1:17 AM) UA Sq Epi [Few /LPF] Occasional /LPF *NA* (12/08/18 1:17 AM) UA [place] Yeast [None Occasional /HPF Seen /HPF] *ABN* (12/08/18 1:17 AM) Immunizations No data available for this section [...]
--- OUTSIDE RECORDS SUMMARY | 2019-03-27 16:45 | XMS REPORT | Summary of Care ---
Author Author [facility] Organization [facility] Address Unknown Phone Unavailable Encounter CLARK Shen(SABAS) [id number] Date(s): 08/02/17 - 08/03/17 [facility] [address] [place] [address]- [phone] Discharge Diagnosis: Left flank pain Discharge Diagnosis: Acute lower urinary tract infection Discharge Disposition: Home or Self Care Attending Physician: Olivia Barnett DO Vital Signs 1 2 3 Most recent to oldest [Reference Range]: 167.64 cm (08/02/17 9:21 PM) Height 98.9 DegF (08/02/17 10:52 PM) 98.8 DegF (08/02/17 9:21 PM) Temperature Oral [96.4-99.1 DegF] 126/70 mmHg (08/03/17 5:17 AM) 117/81 mmHg (08/03/17 3:34 AM) 130/68 mmHg (08/02/17 10:52 PM) Blood Pressure [90-140/60-90 mmHg] 19 BRMIN (08/03/17 5:17 AM) 27 BRMIN *HI* (08/03/17 3:34 AM) 26 BRMIN *HI* (08/03/17 12:49 AM) Respiratory Rate [14-20 BRMIN] 142 bpm *HI* (08/02/17 10:52 PM) 154 bpm *HI* (08/02/17 9:21 PM) Peripheral Pulse Rate [60-100 bpm] 114.545 kg (08/02/17 9:21 PM) Weight 40.76 m2 (08/02/17 9:21 PM) Body Mass Index Problem List Condition Effective Dates Status Health Status Informant Abdominal pain in Resolved female(Confirmed) Diabetes(Confirmed) Resolved H/O: HTN Resolved (hypertension)(Confi rmed) Allergies, Adverse Reactions, Alerts Substance Reaction Severity Status NKDA Active Medications Bactrim DS 800 mg- 160 mg oral tablet 1 tab, PO, BID, X 14 day, # 28 tab, 0 Refill(s) Start Date: 08/03/17 Stop Date: 08/17/17 Status: Ordered morphine Sulfate 4 mg, Route: IVP, ONCE, Dosing Weight 114.545, kg, Priority: STAT, Start date: 10/03/16 3:50:00 SANDING SUPERVISOR, Stop date: 08/03/17 3:50:00 SANDING SUPERVISOR Start Date: 08/03/17 Stop Date: 08/03/17 Status: Completed morphine Sulfate 4 mg, Route: IVP, ONCE, Dosing Weight 114.545, kg, Priority: STAT, Start date: 10/03/16 1:27:00 SANDING SUPERVISOR, Stop date: 08/03/17 1:27:00 SANDING SUPERVISOR Start Date: 08/03/17 Stop Date: 08/03/17 Status: Completed ondansetron 4 mg, Route: IVP, Drug form: INJ, ONCE, Dosing Weight 114.545, kg, Priority: STA T, Start date: 08/03/17 3:50:00 SANDING SUPERVISOR, Stop date: 08/03/17 3:50:00 SANDING SUPERVISOR Start Date: 08/03/17 Stop Date: 08/03/17 Status: Completed ondansetron 4 mg, Route: IVP, Drug form: INJ, ONCE, Dosing Weight 114.545, kg, Priority: STA T, Start date: 08/03/17 1:27:00 SANDING SUPERVISOR, Stop date: 08/03/17 1:27:00 SANDING SUPERVISOR Start Date: 08/03/17 Stop Date: 08/03/17 Status: Completed Rocephin + sterile water 20 mL 2 gm, Route: IVPB, ONCE, Dosing Weight 114.545, kg, Priority: STAT, Start date: 08/03/17 0:22:00 SANDING SUPERVISOR, Stop date: 08/03/17 0:22:00 SANDING SUPERVISOR, ABX Indication: Urinary T ract Infection Notes: (Same As: Rocephin).Use with 100 mL NS and infuse over 30 min MEDICA TION WASTE Product Size: 2000 mgProduct Wasted: ___ mg Start Date: 08/03/17 Stop Date: 08/03/17 Status: Completed Saline Flush 0.9% 10 mL, Route: IVP, Drug Form: INJ, Dosing Weight 114.545, kg, PRN, PRN Line Flus h, Start date: 08/02/17 21:33:00 SANDING SUPERVISOR, Duration: 30 day, Stop date: 09/01/17 21:3 2:00 SANDING SUPERVISOR Notes: (Same as: BD Posiflush) Start Date: 08/02/17 Stop Date: 08/03/17 Status: Discontinued Sodium Chloride 0.9% (Bolus) IV 1,000 mL, 2,000 ml/hr, Infuse Over: 30 minutes, Route: IV, 1,000, Drug form: INJ , ONCE, Priority: STAT, Dosing Weight 114.545 kg, Start date: 08/02/17 21:33:00 SANDING SUPERVISOR, Stop date: 08/02/17 21:33:00 SANDING SUPERVISOR Start Date: 08/02/17 Stop Date: 08/03/17 Status: Completed Results ELECTROLYTES Most recent to 1 oldest [Reference Range]: Sodium Lvl [135-145 135 mEq/L mEq/L] (08/02/17 9:59 PM) Potassium Lvl 4.0 mEq/L [3.5-5.1 mEq/L] (08/02/17 9:59 PM) Chloride Lvl [95-109 102 mEq/L mEq/L] (08/02/17 9:59 PM) CO2 [24-32 mEq/L] 25 mEq/L (08/02/17 9:59 PM) AGAP [10.0-20.0 12.0 mEq/L mEq/L] (08/02/17 9:59 PM) CHEM PANEL Most recent to 1 oldest [Reference Range]: Creatinine Lvl 0.63 mg/dL [0.50-1.40 mg/dL] (08/02/17 9:59 PM) eGFR 123 mL/min/1.73m2 1 *NA* (08/02/17 9:59 PM) BUN [7-22 mg/dL] 9 mg/dL (08/02/17 9:59 PM) B/C Ratio [6-25] 14 (08/02/17 9:59 PM) Glucose Lvl [70-99 200 mg/dL mg/dL] *HI* (08/02/17 9:59 PM) Total Protein 7.5 g/dL [6.4-8.4 g/dL] (08/02/17 9:59 PM) Albumin Lvl [3.5-5.0 3.5 g/dL g/dL] (08/02/17 9:59 PM) Globulin [2.7-4.2 4.0 g/dL g/dL] (08/02/17 9:59 PM) A/G Ratio [0.7-1.6] 0.9 (08/02/17 9:59 PM) Calcium Lvl 8.6 mg/dL [8.5-10.5 mg/dL] (08/02/17 9:59 PM) Phosphorus [2.5-4.5 3.3 mg/dL mg/dL] (08/02/17 9:59 PM) Magnesium Lvl 1.7 mg/dL [1.8-2.4 mg/dL] *LOW* (08/02/17 9:59 PM) ALT [0-65 unit/L] 25 unit/L (08/02/17 9:59 PM) AST [0-37 unit/L] 11 unit/L (08/02/17 9:59 PM) Alk Phos [39-136 81 unit/L unit/L] (08/02/17 9:59 PM) Bili Total [0.2-1.3 0.5 mg/dL mg/dL] (08/02/17 9:59 PM) Lipase Lvl [73-393 92 unit/L unit/L] (08/02/17 9:59 PM) Lactic Acid Lvl 1.8 mMol/L [0.5-2.2 mMol/L] (08/02/17 9:59 PM) 1Result Comment: The eGFR is calculated [...] be mul tiplied by the estimated BMI. CARDIAC ENZYMES Most recent to 1 oldest [Reference Range]: Total CK [12-191 50 unit/L unit/L] (08/02/17 9:59 PM) CK MB [0.5-3.6 <0.5 ng/mL ng/mL] (08/02/17 9:59 PM) CK MB Index <1.0 [0.0-2.5] (08/02/17 9:59 PM) Troponin-I <0.02 ng/mL [0.00-0.40 ng/mL] (08/02/17 9:59 PM) URINE CHEM Most recent to 1 oldest [Reference Range]: U Preg [Negative] Negative (08/02/17 11:24 PM) URINE AND STOOL Most recent to 1 oldest [Reference Range]: UA Turbidity [Clear] Marked *ABN* (08/02/17 11:24 PM) UA Color [Yellow] Yellow *NA* (08/02/17 11:24 PM) UA pH [5.0-8.0] 5.0 (08/02/17 11:24 PM) UA Spec Grav 1.024 [<=1.030] (08/02/17 11:24 PM) UA Glucose [Negative Negative mg/dL mg/dL] *NA* (08/02/17 11:24 PM) UA Blood [Negative] Large *ABN* (08/02/17 11:24 PM) UA Ketones [Negative Negative mg/dL mg/dL] *NA* (08/02/17 11:24 PM) UA Protein [Negative 30 mg/dL mg/dL] *ABN* (08/02/17 11:24 PM) UA Urobilinogen <=1.0 mg/dL [0.1-1.0 mg/dL] *NA* (08/02/17 11:24 PM) UA Bili [Negative] Negative *NA* (08/02/17 11:24 PM) UA Leuk Est Large [Negative] *ABN* (08/02/17 11:24 PM) UA Nitrite Negative [Negative] (08/02/17 11:24 PM) UA WBC [0-5 /HPF] 89 /HPF *HI* (08/02/17 11:24 PM) UA RBC [0-2 /HPF] >182 /HPF *HI* (08/02/17 11:24 PM) UA Bacteria [None Occasional /HPF Seen /HPF] *NA* (08/02/17 11:24 PM) UA Sq Epi [Few /LPF] Few /LPF *NA* (08/02/17 11:24 PM) UA Mucus [None Seen Few /LPF /LPF] *NA* (08/02/17 11:24 PM) HEMATOLOGY Most recent to 1 oldest [Reference Range]: WBC [3.7-10.4 K/CMM] 15.2 K/CMM *HI* (08/02/17 9:59 PM) RBC [4.20-5.40 5.11 M/CMM M/CMM] (08/02/17 9:59 PM) Hgb [12.0-16.0 g/dL] 14.3 g/dL (08/02/17 9:59 PM) Hct [36.0-48.0 %] 43.2 % (08/02/17 9:59 PM) MCV [80.0-98.0 fL] 84.4 fL (08/02/17 9:59 PM) MCH [27.0-31.0 pg] 27.9 pg (08/02/17 9:59 PM) MCHC [32.0-36.0 33.1 g/dL g/dL] (08/02/17 9:59 PM) RDW [11.5-14.5 %] 12.9 % (08/02/17 9:59 PM) Platelet [133-450 356 K/CMM K/CMM] (08/02/17 9:59 PM) MPV [7.4-10.4 fL] 7.2 fL *LOW* (08/02/17 9:59 PM) Segs [45.0-75.0 %] 77.2 % *HI* (08/02/17 9:59 PM) Lymphocytes 17.1 % [20.0-40.0 %] *LOW* (08/02/17 9:59 PM) Monocytes [2.0-12.0 3.5 % %] (08/02/17 9:59 PM) Eosinophils [0.0-4.0 1.7 % %] (08/02/17 9:59 PM) Basophils [0.0-1.0 0.5 % %] (08/02/17 9:59 PM) Segs-Bands # 11.7 K/CMM [1.5-8.1 K/CMM] *HI* (08/02/17 9:59 PM) Lymphocytes # 2.6 K/CMM [1.0-5.5 K/CMM] (08/02/17 9:59 PM) Monocytes # [0.0-0.8 0.5 K/CMM K/CMM] (08/02/17 9:59 PM) Eosinophils # 0.3 K/CMM [0.0-0.5 K/CMM] (08/02/17 9:59 PM) Basophils # [0.0-0.2 0.1 K/CMM K/CMM] (08/02/17 9:59 PM) Immunizations No data available for this [...]
--- OUTSIDE RECORDS SUMMARY | 2019-03-27 16:46 | XMS REPORT | Summary of Care ---
Author Author [facility] Organization [facility] Address Unknown Phone Unavailable Encounter HQ Hermelinda(SABAS) [id number] Date(s): 02/06/18 - 03/07/18 [facility] Discharge Disposition: Home or Self Care Attending Physician: Dre Gee MD Vital Signs No data available for this section Problem List Condition Effective Dates Status Health Status Informant Abdominal pain in Resolved female(Confirmed) Diabetes(Confirmed) Resolved H/O: HTN Resolved (hypertension)(Confi rmed) Allergies, Adverse Reactions, Alerts Substance Reaction Severity Status NKDA Active Medications No data available for this section Results No data available for this section [...] Smoking Cessation Counseling No entered on: 01/21/18 Assessment and Plan No data available for this section
--- OUTSIDE RECORDS SUMMARY | 2019-03-27 16:46 | XMS REPORT | Summary of Care ---
Author Author [facility] Organization [facility] Address Unknown Phone Unavailable Encounter HQ Encntr_rob(FIN) [id number] Date(s): 10/20/17 - 10/20/17 [facility] [address] [place] [phone] Encounter Diagnosis Contusion of left knee, initial encounter (Final) - 10/24/17 Bucket-handle tear of lateral meniscus, current injury, left knee, initial encou nter (Final) - Discharge Disposition: Home or Self Care Attending [...]
--- OUTSIDE RECORDS SUMMARY | 2019-03-27 16:46 | XMS REPORT | Summary of Care ---
Author Author [facility] Organization [facility] Address Unknown Phone Unavailable Encounter CLARK Shen(FIN) [id number] Date(s): 01/21/18 - 01/21/18 [facility] [address] [place] [address]- Encounter Diagnosis Chest pain (Discharge Diagnosis) - 01/21/18 Hyperglycemia (Discharge Diagnosis) - 01/21/18 Discharge Disposition: Home or Self Care Attending Physician: Ramón Marin MD Vital Signs 1 2 3 Most recent to oldest [Reference Range]: 167.64 cm (01/21/18 12:52 AM) Height 97.9 DegF (01/21/18 12:52 AM) Temperature Oral [96.4-99.1 DegF] 111/86 mmHg (01/21/18 8:45 AM) 145/93 mmHg *HI* (01/21/18 7:11 AM) 140/103 mmHg (01/21/18 12:52 AM) Blood Pressure [90-140/60-90 mmHg] 18 BRMIN (01/21/18 8:45 AM) 18 BRMIN (01/21/18 7:11 AM) 18 BRMIN (01/21/18 12:52 AM) Respiratory Rate [14-20 BRMIN] 84 bpm (01/21/18 7:11 AM) 110 bpm *HI* (01/21/18 12:52 AM) Peripheral Pulse Rate [60-100 bpm] 113.636 kg (01/21/18 12:52 AM) Weight 40.44 m2 (01/21/18 12:52 AM) Body Mass Index Problem List Condition Effective Dates Status Health Status Informant Abdominal pain in Resolved female(Confirmed) Diabetes(Confirmed) Resolved H/O: HTN Resolved (hypertension)(Confi rmed) Allergies, Adverse Reactions, Alerts Substance Reaction Severity Status NKDA Active Medications ketOROLAC 30 mg, Route: IVP, Drug form: INJ, ONCE, Dosing Weight 113.636, kg, Priority: ST AT, Start date: 01/21/18 7:25:00 CDT, Stop date: 01/21/18 7:25:00 CDT Start Date: 01/21/18 Stop Date: 01/21/18 Status: Completed Naprosyn 500 mg oral tablet 500 mg=1 tab, PO, BID, PRN Pain, X 7 day, # 14 tab, 0 Refill(s), Pharmacy: [id number] Start Date: 01/21/18 Stop Date: 01/28/18 Status: Ordered NS (Bolus) IV 1,000 mL, 1,000 ml/hr, Infuse Over: 1 hr, Route: IV, ONCE, Priority: STAT, Dosin g Weight 113.636 kg, Start date: 01/21/18 7:26:00 CDT, Stop date: 01/21/18 7:26: 00 CDT Start Date: 01/21/18 Stop Date: 01/21/18 Status: Completed Saline Flush 0.9% 10 mL, Route: IVP, Drug Form: INJ, Dosing Weight 113.636, kg, PRN, PRN Line Flus h, Start date: 01/21/18 4:34:00 CDT, Duration: 30 day, Stop date: 02/20/18 4:33: 00 CDT Notes: (Same as: BD Posiflush) Start Date: 01/21/18 Stop Date: 01/21/18 Status: Discontinued Results ELECTROLYTES Most recent to 1 oldest [Reference Range]: Sodium Lvl [135-145 136 mEq/L mEq/L] (01/21/18 6:00 AM) Potassium Lvl 3.8 mEq/L [3.5-5.1 mEq/L] (01/21/18 6:00 AM) Chloride Lvl [95-109 102 mEq/L mEq/L] (01/21/18 6:00 AM) CO2 [24-32 mEq/L] 27 mEq/L (01/21/18 6:00 AM) AGAP [10.0-20.0 10.8 mEq/L mEq/L] (01/21/18 6:00 AM) CHEM PANEL Most recent to 1 oldest [Reference Range]: Creatinine Lvl 0.70 mg/dL [0.50-1.40 mg/dL] (01/21/18 6:00 AM) eGFR 119 mL/min/1.73m2 1 *NA* (01/21/18 6:00 AM) BUN [7-22 mg/dL] 10 mg/dL (01/21/18 6:00 AM) B/C Ratio [6-25] 14 (01/21/18 6:00 AM) Glucose Lvl [70-99 319 mg/dL mg/dL] *HI* (01/21/18 6:00 AM) Total Protein 7.4 g/dL [6.4-8.4 g/dL] (01/21/18 6:00 AM) Albumin Lvl [3.5-5.0 3.5 g/dL g/dL] (01/21/18 6:00 AM) Globulin [2.7-4.2 3.9 g/dL g/dL] (01/21/18 6:00 AM) A/G Ratio [0.7-1.6] 0.9 (01/21/18 6:00 AM) Calcium Lvl 8.7 mg/dL [8.5-10.5 mg/dL] (01/21/18 6:00 AM) ALT [0-65 unit/L] 24 unit/L (01/21/18 6:00 AM) AST [0-37 unit/L] 8 unit/L (01/21/18 6:00 AM) Alk Phos [39-136 93 unit/L unit/L] (01/21/18 6:00 AM) Bili Total [0.2-1.3 0.9 mg/dL mg/dL] (01/21/18 6:00 AM) 1Result Comment: The eGFR is calculated using [...] 1 oldest [Reference Range]: Total CK [12-191 44 unit/L unit/L] (01/21/18 6:00 AM) CK MB [0.5-3.6 <1.0 ng/mL ng/mL] (01/21/18 6:00 AM) CK MB Index <2.3 [0.0-2.5] (01/21/18 6:00 AM) Troponin-I <0.02 ng/mL [0.00-0.40 ng/mL] (01/21/18 6:00 AM) ENDOCRINOLOGY Most recent to 1 oldest [Reference Range]: S Preg [Negative] Negative *NA* (01/21/18:00 AM) HEMATOLOGY Most recent to 1 oldest [Reference Range]: WBC [3.7-10.4 K/CMM] 12.8 K/CMM *HI* (01/21/18 6:00 AM) RBC [4.20-5.40 5.08 M/CMM M/CMM] (01/21/18 6:00 AM) Hgb [12.0-16.0 g/dL] 13.9 g/dL (01/21/18 6:00 AM) Hct [36.0-48.0 %] 42.0 % (01/21/18 6:00 AM) MCV [80.0-98.0 fL] 82.7 fL (01/21/18 6:00 AM) MCH [27.0-31.0 pg] 27.4 pg (01/21/18 6:00 AM) MCHC [32.0-36.0 33.1 g/dL g/dL] (01/21/18 6:00 AM) RDW [11.5-14.5 %] 12.8 % (01/21/18 6:00 AM) MPV [7.4-10.4 fL] 7.0 fL *LOW* (01/21/18 6:00 AM) Platelet [133-450 371 K/CMM K/CMM] (01/21/18 6:00 AM) Segs [45.0-75.0 %] 51.7 % (01/21/18 6:00 AM) Lymphocytes 38.5 % [20.0-40.0 %] (01/21/18 6:00 AM) Monocytes [2.0-12.0 5.4 % %] (01/21/18 6:00 AM) Eosinophils [0.0-4.0 3.8 % %] (01/21/18 6:00 AM) Basophils [0.0-1.0 0.6 % %] (01/21/18 6:00 AM) Segs-Bands # 6.6 K/CMM [1.5-8.1 K/CMM] (01/21/18 6:00 AM) Lymphocytes # 4.9 K/CMM [1.0-5.5 K/CMM] (01/21/18 6:00 AM) Monocytes # [0.0-0.8 0.7 K/CMM K/CMM] (01/21/18 6:00 AM) Eosinophils # 0.5 K/CMM [0.0-0.5 K/CMM] (01/21/18 6:00 AM) Basophils # [0.0-0.2 0.1 K/CMM K/CMM] (01/21/18 6:00 AM) D-Dimer <0.27 ug/mL FEU *NA* (01/21/18 6:00 AM) Immunizations No data available for this [...]
--- OUTSIDE RECORDS SUMMARY | 2019-03-27 16:46 | XMS REPORT | Summary of Care ---
Author Author [facility] Organization [facility] Address Unknown Phone Unavailable Encounter CLARK Shen(SABAS) [id number] Date(s): 10/27/17 - 10/28/17 [facility] [address] [place] [address]- Encounter Diagnosis Viral infection, unspecified (Final) - 11/02/17 Tubulo-interstitial nephritis, not specified as acute or chronic (Final) - Essential (primary) hypertension (Final) - Viral syndrome (Discharge Diagnosis) - 10/28/17 Pyelonephritis (Discharge Diagnosis) - 10/28/17 Discharge Disposition: Home or Self Care Attending Physician: Candice Lovelace MD Vital Signs 1 2 3 Most recent to oldest [Reference Range]: 167.64 cm (10/27/17 4:40 PM) Height 97.8 DegF (10/28/17 12:58 AM) 97.7 DegF (10/27/17 11:54 PM) 98 DegF (10/27/17 10:27 PM) Temperature Oral [96.4-99.1 DegF] 134/82 mmHg (10/28/17 12:58 AM) 140/82 mmHg (10/27/17 11:54 PM) 132/89 mmHg (10/27/17 10:27 PM) Blood Pressure [90-140/60-90 mmHg] 18 BRMIN (10/28/17 12:58 AM) 18 BRMIN (10/27/17 11:54 PM) 20 BRMIN (10/27/17 10:27 PM) Respiratory Rate [14-20 BRMIN] 84 bpm (10/28/17 12:58 AM) 88 bpm (10/27/17 11:54 PM) 88 bpm (10/27/17 10:27 PM) Peripheral Pulse Rate [60-100 bpm] 122.727 kg (10/27/17 4:40 PM) Weight 43.67 m2 (10/27/17 4:40 PM) Body Mass Index Problem List Condition Effective Dates Status Health Status Informant Abdominal pain in Resolved female(Confirmed) Diabetes(Confirmed) Resolved H/O: HTN Resolved (hypertension)(Confi rmed) Allergies, Adverse Reactions, Alerts Substance Reaction Severity Status NKDA Active Medications Diflucan 150 mg oral tablet 150 mg=1 tab, PO, ONCE, # 1 tab, 0 Refill(s) Start Date: 10/28/17 Status: Ordered Keflex 500 mg oral capsule 500 mg=1 cap, PO, QID, X 14 day, # 56 cap, 0 Refill(s) Start Date: 10/28/17 Stop Date: 11/11/17 Status: Completed [place] 7.5/325 oral tablet 1 tab, Route: PO, Drug Form: TAB, Dosing Weight 122.727, kg, ONCE, STAT, Start d ate: 10/27/17 23:39:00 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, Stop date: 10/27/17 23:39:00 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 Start Date: 10/27/17 Stop Date: 10/27/17 Status: Completed Tessalon Perles 100 mg oral capsule 100 mg=1 cap, PO, Q8H, PRN cough, do not crush or chew, X 10 day, # 30 cap, 0 Re fill(s) Start Date: 10/28/17 Stop Date: 11/07/17 Status: Completed tramadol 50 mg oral tablet 50 mg=1 tab, PO, Q6H, PRN Pain, X 3 day, # 12 tab, 0 Refill(s) Start Date: 10/28/17 Stop Date: 10/31/17 Status: Completed Zofran ODT 4 mg, Route: PO, Drug form: TABDIS, ONCE, Dosing Weight 122.727, kg, Priority: S TAT, Start date: 10/27/17 23:39:00 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, Stop date: 10/27/17 23:39:00 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 Start Date: 10/27/17 Stop Date: 10/27/17 Status: Completed Results URINE CHEM Most recent to 1 oldest [Reference Range]: U Preg [Negative] Negative (10/27/17 6:14 PM) URINE AND STOOL Most recent to 1 oldest [Reference Range]: UA Turbidity [Clear] Slight Cloudy (10/27/17 6:14 PM) UA Color [Yellow] Yellow *NA* (10/27/17 6:14 PM) UA pH [5.0-8.0] 6.0 (10/27/17 6:14 PM) UA Spec Grav 1.010 [<=1.030] (10/27/17 6:14 PM) UA Glucose [Negative >=1000 mg/dL mg/dL] *ABN* (10/27/17 6:14 PM) UA Blood [Negative] Trace *ABN* (10/27/17 6:14 PM) UA Ketones Negative [Negative] *NA* (10/27/17 6:14 PM) UA Protein Negative [Negative] (10/27/17 6:14 PM) UA Urobilinogen 0.2 EU/dL [0.1-1.0 EU/dL] (10/27/17 6:14 PM) UA Bili [Negative] Negative *NA* (10/27/17 6:14 PM) UA Leuk Est Moderate [Negative] *ABN* (10/27/17 6:14 PM) UA Nitrite Negative [Negative] (10/27/17 6:14 PM) UA WBC [0-5 /HPF] 23 /HPF *HI* (10/27/17 6:14 PM) UA RBC [0-2 /HPF] 31 /HPF *HI* (10/27/17 6:14 PM) UA Bacteria [None Many /HPF Seen /HPF] *ABN* (10/27/17 6:14 PM) UA Sq Epi [Few /LPF] Many /LPF *ABN* (10/27/17 6:14 PM) UA Mucus [None Seen Few /LPF /LPF] *NA* (10/27/17 6:14 PM) UA [place] Yeast [None Few /HPF Seen /HPF] *ABN* (10/27/17 6:14 PM) VIRAL - SEROLOGY Most recent to 1 oldest [Reference Range]: Influ A [Negative] Negative (10/27/17 4:44 PM) Influ B [Negative] Negative (10/27/17 4:44 PM) Immunizations No data available for this [...]
--- OUTSIDE RECORDS SUMMARY | 2019-03-27 16:46 | XMS REPORT | Summary of Care ---
Author Author [facility] Organization [facility] Address Unknown Phone Unavailable Care Team Providers Care Regional Sales Leader Name Role Phone Haritha Levin PCP Encounter HQ Karrientr_rob(FIN) [id number] Date(s): 07/17/18 - 08/15/18 [facility] Encounter Diagnosis Complex tear of lateral meniscus, current injury, left knee, initial encounter (Final) - 08/19/18 Pain in left knee (Final) - Unspecified mononeuropathy of left lower limb (Final) - Discharge Disposition: Home or Self Care Attending Physician: Dre Gee MD Vital Signs No data available for this section Problem List Condition Effective Dates Status Health Status Informant Abdominal pain in Resolved female(Confirmed) Diabetes(Confirmed) Resolved H/O: HTN Resolved (hypertension)(Confi rmed) Allergies, Adverse Reactions, Alerts No Known Medication Allergies Medications No data available for this section [...]
--- OUTSIDE RECORDS SUMMARY | 2019-03-27 16:46 | XMS REPORT | Summary of Care ---
Author Author [facility] Organization [facility] [place] Address Unknown Phone Unavailable Encounter HQ Hermelinda(FIN) [id number] Date(s): 12/20/17 - 12/20/17 [facility] [address] [place] [phone] Encounter Diagnosis Other bursitis of knee, left knee (Final) - 12/26/17 Discharge Disposition: Home or Self Care Attending [...] Procedure Date Related Diagnosis Body Site Status Arthrocentesis, aspiration and/or injection, 12/20/17 Completed major joint or bursa (eg, shoulder, hip, knee, subacromial bursa); with ultrasound guidance, with permanent recording and reporting CS - Caesarean section Completed Lumpectomy Completed [...]
--- OUTSIDE RECORDS SUMMARY | 2019-03-27 16:46 | XMS REPORT | Summary of Care ---
Author Author [facility] Organization [facility] Address Unknown Phone Unavailable Care Team Providers Care Laboratory Tech Name Role Phone Haritha Levin PCP Encounter HQ Karrientr_rob(FIN) [phone] Date(s): 06/15/18 - 07/14/18 [facility] Encounter Diagnosis Complex tear of lateral meniscus, current injury, left knee, initial encounter (Final) - 07/21/18 Unspecified mononeuropathy of left lower limb (Final) - Pain in left knee (Final) - Discharge Disposition: Home or Self [...]
--- OUTSIDE RECORDS SUMMARY | 2019-03-27 16:46 | XMS REPORT | Summary of Care ---
Author Author [facility] Organization [facility] Address Unknown Phone Unavailable Encounter HQ Encntr_rob(FIN) [phone] Date(s): 10/20/17 - 10/20/17 [facility] [address] [place] [phone] Encounter Diagnosis Contusion of left knee, initial [...]
--- OUTSIDE RECORDS SUMMARY | 2019-03-27 16:47 | XMS REPORT | Summary of Care ---
Author Author [facility] Organization [facility] Address Unknown Phone Unavailable Encounter CLARK Shen(FIN) [id number] Date(s): 10/17/18 - 10/17/18 [facility] [address] [place] [address]- Encounter Diagnosis Gastroenteritis (Discharge Diagnosis) - 10/17/18 Hyperglycemia (Discharge Diagnosis) - 10/17/18 Dehydration (Discharge Diagnosis) - 10/17/18 Discharge Disposition: Home or Self Care Attending Physician: Ramón Marin MD Vital Signs 1 2 3 Most recent to oldest [Reference Range]: 167.64 cm (10/17/18 8:11 AM) Height 97.9 DegF (10/17/18 8:11 AM) Temperature Oral [96.4-99.1 DegF] 128/94 mmHg (10/17/18 1:51 PM) 133/84 mmHg (10/17/18 10:36 AM) 156/100 mmHg *HI* (10/17/18 8:11 AM) Blood Pressure [90-140/60-90 mmHg] 18 BRMIN (10/17/18 1:51 PM) 18 BRMIN (10/17/18 10:36 AM) 18 BRMIN (10/17/18 8:11 AM) Respiratory Rate [14-20 BRMIN] 95 bpm (10/17/18 1:51 PM) 98 bpm (10/17/18 10:36 AM) 114 bpm *HI* (10/17/18 8:11 AM) Peripheral Pulse Rate [60-100 bpm] 109.091 kg (10/17/18 8:11 AM) Weight 38.82 m2 (10/17/18 8:11 AM) Body Mass Index Problem List Condition Effective Dates Status Health Status Informant Abdominal pain in Resolved female(Confirmed) Diabetes(Confirmed) Resolved H/O: HTN Resolved (hypertension)(Confi rmed) Allergies, Adverse Reactions, Alerts Substance Reaction Severity Status NKDA Active Medications GI cocktail (aluminum hydroxide/magnesium hydroxide/lidocaine/simethicone) 30 mL, Route: PO, Dosing Weight 109.091, kg, ONCE, STAT, Start date: 10/17/18 9: 08:00 [employer]AL BUILDING [employer]SEM[employer], Stop date: 10/17/18 9:08:00 [employer]AL BUILDING ASSEM[employer]ER Start Date: 10/17/18 Stop Date: 10/17/18 Status: Completed Insulin regular 5 unit, 0.05 mL, Route: SUB-Q, Drug form: INJ, ONCE, Dosing Weight 109.091, kg, Priority: STAT, Start date: 10/17/18 11:18:00 METAL BUILDING ASSEMBLER, Stop date: 10/17/18 11:18:00 METAL BUILDING ASSEMBLER Notes: (Same as: Humulin R and NovoLIN R)WASTE: F/P - Black; E - Municipal Trash Bin (Do not shake) Start Date: 10/17/18 Stop Date: 10/17/18 Status: Completed metoclopramide 10 mg, 2 mL, Route: IVP, Drug form: INJ, ONCE, Dosing Weight 109.091, kg, Priori ty: STAT, Start date: 10/17/18 9:08:00 METAL BUILDING ASSEMBLER, Stop date: 10/17/18 9:08:00 METAL BUILDING ASSEMBLER Notes: (Same as: Reglan) Start Date: 10/17/18 Stop Date: 10/17/18 Status: Completed morphine Sulfate 2 mg, Route: IVP, ONCE, Dosing Weight 109.091, kg, Priority: STAT, Start date: 0 10/17/18 10:23:00 METAL BUILDING ASSEMBLER, Stop date: 10/17/18 10:23:00 [employer]AL BUILDING ASSEM[employer]ER Start Date: 10/17/18 Stop Date: 10/17/18 Status: Completed NS (Bolus) IV 1,000 mL, 1,000 ml/hr, Infuse Over: 1 hr, Route: IV, 1,000, Drug form: INJ, ONCE , Priority: STAT, Dosing Weight 109.091 kg, Start date: 10/17/18 9:08:00 METAL BUILDING ASSEMBLER, St op date: 10/17/18 9:08:00 METAL BUILDING ASSEMBLER Start Date: 10/17/18 Stop Date: 10/17/18 Status: Completed pantoprazole 40 mg, Route: IVP, Drug form: INJ, ONCE, Dosing Weight 109.091, kg, For IV push reconstitute with 10 ml 0.9% sodium chloride and push over at least 3 minutes, P riority: STAT, Start date: 10/17/18 9:08:00 METAL BUILDING ASSEMBLER, Stop date: 10/17/18 9:08:00 METAL BUILDING ASSEMBLER Notes: For IV push reconstitute with 10 ml 0.9% sodium chloride and push over 2 minutes. (Same as: Protonix) Start Date: 10/17/18 Stop Date: 10/17/18 Status: Completed Reglan 5 mg oral tablet 5 mg=1 tab, PO, Q6H, X 7 day, # 28 tab, 0 Refill(s) Start Date: 10/17/18 Stop Date: 10/24/18 Status: Ordered Saline Flush 0.9% 10 mL, Route: IVP, Drug Form: INJ, Dosing Weight 109.091, kg, PRN, PRN Line Flus h, Start date: 10/17/18 9:08:00 [employer]AL BUILDING ASSEMBLER, Duration: 30 day, Stop date: 11/16/18 9:07: 00 METAL BUILDING ASSEMBLER Notes: (Same as: BD Posiflush) Start Date: 10/17/18 Stop Date: 10/17/18 Status: Discontinued Sodium Chloride 0.9% (Bolus) IV 1,000 mL, 1000 ml/hr, Infuse Over: 1 hr, Route: IV, 1,000, Drug form: INJ, ONCE, Priority: STAT, Dosing Weight 109.091 kg, Start date: 10/17/18 9:08:00 METAL BUILDING ASSEMBLER, Stop date: 10/17/18 9:08:00 METAL BUILDING ASSEMBLER Start Date: 10/17/18 Stop Date: 10/17/18 Status: Completed Results ELECTROLYTES Most recent to 1 oldest [Reference Range]: Sodium Lvl [135-145 137 mEq/L mEq/L] (10/17/18 9:25 AM) Potassium Lvl 3.9 mEq/L [3.5-5.1 mEq/L] (10/17/18 9:25 AM) Chloride Lvl [95-109 101 mEq/L mEq/L] (10/17/18 9:25 AM) CO2 [24-32 mEq/L] 23 mEq/L *LOW* (10/17/18 9:25 AM) AGAP [10.0-20.0 16.9 mEq/L mEq/L] (10/17/18 9:25 AM) CHEM PANEL Most recent to 1 oldest [Reference Range]: Creatinine Lvl 0.67 mg/dL [0.50-1.40 mg/dL] (10/17/18 9:25 AM) eGFR 120 mL/min/1.73m2 1 *NA* (10/17/18 9:25 AM) BUN [7-22 mg/dL] 13 mg/dL (10/17/18 9:25 AM) B/C Ratio [6-25] 19 (10/17/18 9:25 AM) Glucose Lvl [70-99 367 mg/dL mg/dL] *HI* (10/17/18 9:25 AM) Total Protein 8.2 g/dL [6.4-8.4 g/dL] (10/17/18 9:25 AM) Albumin Lvl [3.5-5.0 3.6 g/dL g/dL] (10/17/18 9:25 AM) Globulin [2.7-4.2 4.6 g/dL g/dL] *HI* (10/17/18 9:25 AM) A/G Ratio [0.7-1.6] 0.8 (10/17/18 9:25 AM) Calcium Lvl 8.8 mg/dL [8.5-10.5 mg/dL] (10/17/18 9:25 AM) Magnesium Lvl 1.9 mg/dL [1.8-2.4 mg/dL] (10/17/18 9:25 AM) ALT [0-65 unit/L] 28 unit/L (10/17/18 9:25 AM) AST [0-37 unit/L] 13 unit/L (10/17/18 9:25 AM) Alk Phos [39-136 96 unit/L unit/L] (10/17/18 9:25 AM) Bili Total [0.2-1.3 0.7 mg/dL mg/dL] (10/17/18 9:25 AM) Lipase Lvl [73-393 91 unit/L unit/L] (10/17/18 9:25 AM) 1Result Comment: The eGFR is calculated [...] be mul tiplied by the estimated BMI. ENDOCRINOLOGY Most recent to 1 oldest [Reference Range]: S Preg [Negative] Negative *NA* (10/17/18 9:25 AM) URINE AND STOOL Most recent to 1 oldest [Reference Range]: UA Turbidity [Clear] Clear (10/17/18 9:25 AM) UA Color Ltyellow *NA* (10/17/18 9:25 AM) UA pH [5.0-8.0] 5.0 (10/17/18 9:25 AM) UA Spec Grav 1.040 [<=1.030] *HI* (10/17/18 9:25 AM) UA Glucose [Negative 500 mg/dL mg/dL] *ABN* (10/17/18 9:25 AM) UA Blood [Negative] Negative (10/17/18 9:25 AM) UA Ketones [Negative 20 mg/dL mg/dL] *ABN* (10/17/18 9:25 AM) UA Protein Negative [Negative] (10/17/18 9:25 AM) UA Urobilinogen <=1.0 mg/dL [0.1-1.0 mg/dL] *NA* (10/17/18 9:25 AM) UA Bili [Negative] Negative *NA* (10/17/18 9:25 AM) UA Leuk Est Negative [Negative] (10/17/18 9:25 AM) UA Nitrite Negative [Negative] (10/17/18 9:25 AM) UA WBC [0-5 /HPF] 2 /HPF (10/17/18 9:25 AM) UA RBC [0-2 /HPF] 3 /HPF *HI* (10/17/18 9:25 AM) UA Bacteria [None Occasional /HPF Seen /HPF] *NA* (10/17/18 9:25 AM) UA Sq Epi [Few /LPF] Few /LPF *NA* (10/17/18 9:25 AM) UA Mucus [None Seen Few /LPF /LPF] (10/17/18 9:25 AM) HEMATOLOGY Most recent to 1 oldest [Reference Range]: WBC [3.7-10.4 K/CMM] 18.5 K/CMM *HI* (10/17/18 9:25 AM) RBC [4.20-5.40 5.69 M/CMM M/CMM] *HI* (10/17/18 9:25 AM) Hgb [12.0-16.0 g/dL] 15.6 g/dL (10/17/18 9:25 AM) Hct [36.0-48.0 %] 47.2 % (10/17/18 9:25 AM) MCV [80.0-98.0 fL] 83.0 fL (10/17/18 9:25 AM) MCH [27.0-31.0 pg] 27.5 pg (10/17/18 9:25 AM) MCHC [32.0-36.0 33.1 g/dL g/dL] (10/17/18 9:25 AM) RDW [11.5-14.5 %] 13.2 % (10/17/18 9:25 AM) MPV [7.4-10.4 fL] 7.4 fL (10/17/18 9:25 AM) Platelet [133-450 442 K/CMM K/CMM] (10/17/18 9:25 AM) Segs [45.0-75.0 %] 72.9 % (10/17/18 9:25 AM) Lymphocytes 18.9 % [20.0-40.0 %] *LOW* (10/17/18 9:25 AM) Monocytes [2.0-12.0 4.3 % %] (10/17/18 9:25 AM) Eosinophils [0.0-4.0 3.5 % %] (10/17/18 9:25 AM) Basophils [0.0-1.0 0.4 % %] (10/17/18 9:25 AM) Neutrophils # 13.5 K/CMM [1.5-8.1 K/CMM] *HI* (10/17/18 9:25 AM) Lymphocytes # 3.5 K/CMM [1.0-5.5 K/CMM] (10/17/18 9:25 AM) Monocytes # [0.0-0.8 0.8 K/CMM K/CMM] (10/17/18 9:25 AM) Eosinophils # 0.7 K/CMM [0.0-0.5 K/CMM] *HI* (10/17/18 9:25 AM) Basophils # [0.0-0.2 0.1 K/CMM K/CMM] (10/17/18 9:25 AM) Immunizations No data available for this [...] Reg Smoking Cessation Counseling No entered on: 10/19/18 Assessment and Plan No data available for this section
--- OUTSIDE RECORDS SUMMARY | 2019-03-27 16:47 | XMS REPORT | Summary of Care ---
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) - Discharge Disposition: Home or Self Care Attending Physician: Todd Guadalupe MD Vital Signs Most recent to 1 2 oldest [Reference Range]: Height 167.64 cm (04/12/18 4:34 PM) Temperature Oral 98.1 DegF 97.9 DegF [96.4-99.1 DegF] (04/12/18 6:05 PM) (04/12/18 4:34 PM) Blood Pressure 144/96 mmHg 164/106 mmHg [90-140/60-90 mmHg] *HI* *HI* (04/12/18 6:05 PM) (04/12/18 4:34 PM) Respiratory Rate 18 BRMIN 18 BRMIN [14-20 BRMIN] (04/12/18 6:05 PM) (04/12/18 4:34 PM) Peripheral Pulse 88 bpm 97 bpm Rate [60-100 bpm] (04/12/18 6:05 PM) (04/12/18 4:34 PM) Weight 127.273 kg (04/12/18 4:34 PM) Body Mass Index 45.29 m2 (04/12/18 4:34 PM) Problem List Condition Effective Dates Status Health Status Informant Abdominal pain in Resolved female(Confirmed) Diabetes(Confirmed) Resolved H/O: HTN Resolved (hypertension)(Confi rmed) Allergies, Adverse Reactions, Alerts Substance Reaction Severity Status NKDA Active Medications dexamethasone 10 mg, 2.5 mL, Route: IM, Drug form: INJ, ONCE, Dosing Weight 113.636, kg, Prior ity: STAT, Start date: 04/12/18 16:34:00 CDT, Stop date: 04/12/18 16:34:00 CDT Start Date: 04/12/18 Stop Date: 04/12/18 Status: Completed Flonase 0.05 mg/inh nasal spray 2 spray, NASAL, Daily, in each nostril, # 16 gm, 1 Refill(s) Start Date: 04/12/18 Status: Ordered Tessalon 200 mg oral capsule 200 mg=1 cap, PO, TID, X 10 day, # 30 cap, 0 Refill(s) Start Date: 04/12/18 Stop Date: 04/22/18 Status: Completed Results RAPID Most recent to 1 oldest [Reference Range]: Grp A Strep Scr Negative [Negative] (04/12/18 4:47 PM) Immunizations No data available for this [...]
--- OUTSIDE RECORDS SUMMARY | 2019-03-27 16:47 | XMS REPORT | Summary of Care ---
Author Author [facility] Organization [facility] Address Unknown Phone Unavailable Encounter CLARK Shen(FIN) [id number] Date(s): 10/19/18 - 10/19/18 [facility] [address] [place] [address]- Encounter Diagnosis Acute gastroenteritis (Discharge Diagnosis) - 10/19/18 Abdominal pain, acute, epigastric (Discharge Diagnosis) - 10/19/18 Discharge Disposition: Home or Self Care Attending Physician: Renzo Barnett DO Vital Signs 1 2 3 Most recent to oldest [Reference Range]: 167.64 cm (10/19/18 12:38 PM) Height 98.1 DegF (10/19/18 12:38 PM) Temperature Oral [96.4-99.1 DegF] 119/80 mmHg (10/19/18 4:50 PM) 128/80 mmHg (10/19/18 3:38 PM) 132/86 mmHg (10/19/18 12:38 PM) Blood Pressure [90-140/60-90 mmHg] 18 BRMIN (10/19/18 4:50 PM) 20 BRMIN (10/19/18 3:38 PM) 9 BRMIN *LOW* (10/19/18 12:58 PM) Respiratory Rate [14-20 BRMIN] 102 bpm *HI* (10/19/18 12:38 PM) Peripheral Pulse Rate [60-100 bpm] 109.091 kg (10/19/18 12:38 PM) Weight 38.82 m2 (10/19/18 12:38 PM) Body Mass Index Problem List Condition Effective Dates Status Health Status Informant Abdominal pain in Resolved female(Confirmed) Diabetes(Confirmed) Resolved H/O: HTN Resolved (hypertension)(Confi rmed) Allergies, Adverse Reactions, Alerts Substance Reaction Severity Status NKDA Active Medications morphine Sulfate 4 mg, 1 mL, Route: IVP, Drug form: SOLN, ONCE, Dosing Weight 109.091, kg, Priori ty: STAT, Start date: 10/19/18 13:47:00 PROVIDER RELATIONS REP, Stop date: 10/19/18 13:47:00 PROVIDER RELATIONS REP Notes: (Same as:MORPhine Sulfate) Start Date: 10/19/18 Stop Date: 10/19/18 Status: Completed Westbrook 5/325 oral tablet 1 tab, Route: PO, Drug Form: TAB, Dosing Weight 109.091, kg, ONCE, STAT, Start d ate: 10/19/18 16:10:00 PROVIDER RELATIONS REP, Stop date: 10/19/18 16:10:00 PROVIDER RELATIONS REP Notes: (Same as: Westbrook 325/5) Do not exceed 4gm/day of acetaminophen. Start Date: 10/19/18 Stop Date: 10/19/18 Status: Ordered Sodium Chloride 0.9% (Bolus) IV 1,000 mL, Infuse Over: 1 hr, Route: IV, ONCE, Priority: STAT, Dosing Weight 109. 091 kg, Start date: 10/19/18 13:00:00 PROVIDER RELATIONS REP, Stop date: 10/19/18 13:00:00 PROVIDER RELATIONS REP Start Date: 10/19/18 Stop Date: 10/19/18 Status: Completed Sodium Chloride 0.9% (Bolus) IV 1,000 mL, 1000 ml/hr, Infuse Over: 1 hr, Route: IV, 1,000, Drug form: INJ, ONCE, Priority: STAT, Dosing Weight 109.091 kg, Start date: 10/19/18 15:41:00 PROVIDER RELATIONS REP, St op date: 10/19/18 15:41:00 PROVIDER RELATIONS REP Start Date: 10/19/18 Stop Date: 10/19/18 Status: Ordered Tylenol with Codeine #3 oral tablet 1 tab, PO, Q6H, PRN Pain, no Driving while under the influence of this medicatio n, X 3 day, # 12 tab, 0 Refill(s) Start Date: 10/19/18 Stop Date: 10/22/18 Status: Ordered Zofran 4 mg, Route: IVP, Drug form: INJ, ONCE, Dosing Weight 109.091, kg, Priority: STA T, Start date: 10/19/18 13:05:00 PROVIDER RELATIONS REP, Stop date: 10/19/18 13:05:00 PROVIDER RELATIONS REP Start Date: 10/19/18 Stop Date: 10/19/18 Status: Completed Results ELECTROLYTES Most recent to 1 oldest [Reference Range]: Sodium Lvl [135-145 138 mEq/L mEq/L] (10/19/18 12:51 PM) Potassium Lvl 4.1 mEq/L [3.5-5.1 mEq/L] (10/19/18 12:51 PM) Chloride Lvl [95-109 103 mEq/L mEq/L] (10/19/18 12:51 PM) CO2 [24-32 mEq/L] 23 mEq/L *LOW* (10/19/18 12:51 PM) AGAP [10.0-20.0 16.1 mEq/L mEq/L] (10/19/18 12:51 PM) CHEM PANEL Most recent to 1 oldest [Reference Range]: Creatinine Lvl 0.75 mg/dL [0.50-1.40 mg/dL] (10/19/18 12:51 PM) eGFR 109 mL/min/1.73m2 1 *NA* (10/19/18 12:51 PM) BUN [7-22 mg/dL] 9 mg/dL (10/19/18 12:51 PM) B/C Ratio [6-25] 12 (10/19/18 12:51 PM) Glucose Lvl [70-99 340 mg/dL mg/dL] *HI* (10/19/18 12:51 PM) Total Protein 7.6 g/dL [6.4-8.4 g/dL] (10/19/18 12:51 PM) Albumin Lvl [3.5-5.0 3.3 g/dL g/dL] *LOW* (10/19/18 12:51 PM) Globulin [2.7-4.2 4.3 g/dL g/dL] *HI* (10/19/18 12:51 PM) A/G Ratio [0.7-1.6] 0.8 (10/19/18 12:51 PM) Calcium Lvl 8.5 mg/dL [8.5-10.5 mg/dL] (10/19/18 12:51 PM) ALT [0-65 unit/L] 28 unit/L (10/19/18 12:51 PM) AST [0-37 unit/L] 23 unit/L (10/19/18 12:51 PM) Alk Phos [39-136 80 unit/L unit/L] (10/19/18 12:51 PM) Bili Total [0.2-1.3 0.3 mg/dL mg/dL] (10/19/18 12:51 PM) Lipase Lvl [73-393 103 unit/L unit/L] (10/19/18 12:51 PM) 1Result Comment: The eGFR is calculated [...] Most recent to 1 oldest [Reference Range]: Troponin-I <0.02 ng/mL [0.00-0.40 ng/mL] (10/19/18 12:51 PM) ENDOCRINOLOGY Most recent to 1 oldest [Reference Range]: S Preg [Negative] Negative *NA* (10/19/18 12:51 PM) URINE AND STOOL Most recent to 1 oldest [Reference Range]: UA Turbidity [Clear] Slight *ABN* (10/19/18 2:14 PM) UA Color Ltyellow *NA* (10/19/18 2:14 PM) UA pH [5.0-8.0] 5.0 (10/19/18 2:14 PM) UA Spec Grav 1.039 [<=1.030] *HI* (10/19/18 2:14 PM) UA Glucose [Negative 500 mg/dL mg/dL] *ABN* (10/19/18 2:14 PM) UA Blood [Negative] Negative (10/19/18 2:14 PM) UA Ketones Negative [Negative] *NA* (10/19/18 2:14 PM) UA Protein Negative [Negative] (10/19/18 2:14 PM) UA Urobilinogen <=1.0 mg/dL [0.1-1.0 mg/dL] *NA* (10/19/18 2:14 PM) UA Bili [Negative] Negative *NA* (10/19/18 2:14 PM) UA Leuk Est Negative [Negative] (10/19/18 2:14 PM) UA Nitrite Negative [Negative] (10/19/18 2:14 PM) UA WBC [0-5 /HPF] 2 /HPF (10/19/18 2:14 PM) UA RBC [0-2 /HPF] 5 /HPF *HI* (10/19/18 2:14 PM) UA Sq Epi [Few /LPF] Many /LPF *ABN* (10/19/18 2:14 PM) HEMATOLOGY Most recent to 1 oldest [Reference Range]: WBC [3.7-10.4 K/CMM] 16.9 K/CMM *HI* (10/19/18 12:51 PM) RBC [4.20-5.40 5.05 M/CMM M/CMM] (10/19/18 12:51 PM) Hgb [12.0-16.0 g/dL] 13.8 g/dL (10/19/18 12:51 PM) Hct [36.0-48.0 %] 42.2 % (10/19/18 12:51 PM) MCV [80.0-98.0 fL] 83.7 fL (10/19/18 12:51 PM) MCH [27.0-31.0 pg] 27.3 pg (10/19/18 12:51 PM) MCHC [32.0-36.0 32.7 g/dL g/dL] (10/19/18 12:51 PM) RDW [11.5-14.5 %] 13.0 % (10/19/18 12:51 PM) MPV [7.4-10.4 fL] 7.1 fL *LOW* (10/19/18 12:51 PM) Platelet [133-450 366 K/CMM K/CMM] (10/19/18 12:51 PM) Segs [45.0-75.0 %] 59.1 % (10/19/18 12:51 PM) Lymphocytes 26.9 % [20.0-40.0 %] (10/19/18 12:51 PM) Monocytes [2.0-12.0 4.3 % %] (10/19/18 12:51 PM) Eosinophils [0.0-4.0 8.8 % %] *HI* (10/19/18 12:51 PM) Basophils [0.0-1.0 0.9 % %] (10/19/18 12:51 PM) Neutrophils # 10.0 K/CMM [1.5-8.1 K/CMM] *HI* (10/19/18 12:51 PM) Lymphocytes # 4.6 K/CMM [1.0-5.5 K/CMM] (10/19/18 12:51 PM) Monocytes # [0.0-0.8 0.7 K/CMM K/CMM] (10/19/18 12:51 PM) Eosinophils # 1.5 K/CMM [0.0-0.5 K/CMM] *HI* (10/19/18 12:51 PM) Basophils # [0.0-0.2 0.2 K/CMM K/CMM] (10/19/18 12:51 PM) Immunizations No data available for this [...] No entered on: 10/19/18 Assessment and Plan Extracted from: Title: Cardiology Consult Author: Abiodun Monique MD Date: 10/19/18 [facility] Consult Note Attending: Todd Guadalupe MDPhone: Service: Emergency Medicine Code status: None Specified=FULL CODE Reason for Admission: HIGH BP Working DRG: Isolation: None Documented Consulting Physicians: Abiodun Monique MDOffice: Service: Cardiology Reason for Consultation: STEMI activation [...] Days? No. Cessation Counseling Provided? No. Exam: VitalsTmp(F)[id number] 10/19 15:38----[id number]--- 10/19 12:58----109-----[id number]--- 10/19 12:[id number]--- 24 Hr Tmax: 98.1F (36.72c) at 10/19 12:38Vital Signs are the last 5 in the past 48 hours. DateWt(kg)Wt(lb)Ht(cm)Ht(in)Method 10/19 (initial)109.09 240.00Estimated 67.64 66.00Stated Eyes: conjunctivae clear. ENMT: normal mucosa. No [...] IV ONCE 1000 ml/hr 10/19/18 (Ordered) acetaminophen-hydrocodone ([place]brook 5/325 oral tablet) 1 tab PO ONCE 10/19/18 (Completed) morphine Sulfate 4 mg IVP ONCE 10/19/18 (Completed) ondansetron (Zofran) 4 mg IVP ONCE Continuous Infusions: None Labs (Last four charted values) WBC H 16.9(OCT 19) Hgb 13.8(OCT 19) Hct 42.2(OCT 19) Plt 366(OCT 19) Na 138(OCT 19) K 4.1(OCT 19) CO2 L 23(OCT 19) Cl 103(OCT 19) Cr 0.75(OCT 19) BUN 9(OCT 19) Glucose Random H 340(OCT 19) Ca 8.5(OCT 19) Troponin <0.02(OCT 19) Imaging: Reviewed. Telemetry: NSR ECG: Normal [...]
--- OUTSIDE RECORDS SUMMARY | 2019-03-27 16:47 | XMS REPORT | Summary of Care ---
Author Author [facility] Organization [facility] Address Unknown Phone Unavailable Encounter CLARK Shen(SAABS) [id number] Date(s): 03/17/16 - 03/17/16 [facility] [address] [place] [address]- [phone] Discharge Diagnosis: Hyperglycemia, unspecified Final: Episodic tension-type headache, intractable Final: Dehydration Final: Type 1 diabetes mellitus with hyperglycemia Final: Essential (primary) hypertension Discharge Diagnosis: Headache Discharge Diagnosis: Essential (primary) hypertension Discharge Disposition: Home Attending Physician: Derrick Albarado MD Vital Signs 1 2 3 Most recent to oldest [Reference Range]: 167.64 cm (03/17/16 9:49 AM) Height 98.2 DegF (03/17/16 10:34 AM) 98.1 DegF (03/17/16 9:49 AM) Temperature Oral [96.4-99.1 DegF] 136/98 mmHg (03/17/16 1:17 PM) 134/107 mmHg (03/17/16 12:40 PM) Blood Pressure [90-140/60-90 mmHg] 157 mmHg *HI* (03/17/16 10:34 AM) Systolic Blood Pressure [90-140 mmHg] 101 mmHg *HI* (03/17/16 10:34 AM) Diastolic Blood Pressure [60-90 mmHg] 20 BRMIN (03/17/16 1:17 PM) 22 BRMIN *HI* (03/17/16 12:40 PM) 18 BRMIN (03/17/16 9:49 AM) Respiratory Rate [14-20 BRMIN] 107 bpm *HI* (03/17/16 10:34 AM) 111 bpm *HI* (03/17/16 9:49 AM) Peripheral Pulse Rate [60-100 bpm] 113.636 kg (03/17/16 9:49 AM) Weight 40.44 m2 (03/17/16 9:49 AM) Body Mass Index Problem List Condition Effective Dates Status Health Status Informant Diabetes(Confirmed) Resolved Allergies, Adverse Reactions, Alerts Substance Reaction Severity Status NKDA Active Medications Dextrose 50% Syringe 12.5 gm, 25 mL, Route: IVP, Drug Form: INJ, Dosing Weight 113.636, kg, PRN, PRN Blood Glucose Results, Start date: 03/17/16 10:19:00 CDT, Duration: 30 day, Stop date: 04/16/16 10:18:00 CDT Start Date: 03/17/16 Stop Date: 03/17/16 Status: Discontinued Dextrose 50% Syringe 25 gm, 50 mL, Route: IVP, Drug Form: INJ, Dosing Weight 113.636, kg, PRN, PRN Bl ood Glucose Results, Start date: 03/17/16 10:19:00 CDT, Duration: 30 day, Stop d ate: 04/16/16 10:18:00 CDT Start Date: 03/17/16 Stop Date: 03/17/16 Status: Discontinued glucagon 1 mg, Route: IM, Drug form: PDR/INJ, PRN, Dosing Weight 113.636, kg, PRN Blood G lucose Results, Start date: 03/17/16 10:19:00 CDT, Duration: 30 day, Stop date: 04/16/16 10:18:00 CDT Start Date: 03/17/16 Stop Date: 03/17/16 Status: Discontinued Insulin regular 5 unit, Route: IV, ONCE, Dosing Weight 113.636, kg, Priority: STAT, Start date: 03/17/16 11:18:00 CDT, Stop date: 03/17/16 11:18:00 CDT Start Date: 03/17/16 Stop Date: 03/17/16 Status: Completed ketOROLAC 30 mg, Route: IVP, Drug form: INJ, ONCE, Dosing Weight 113.636, kg, Priority: ST AT, Start date: 03/17/16 11:36:00 CDT, Stop date: 03/17/16 11:36:00 CDT Start Date: 03/17/16 Stop Date: 03/17/16 Status: Completed Reglan 10 mg, Route: IVP, Drug form: INJ, ONCE, Dosing Weight 113.636, kg, Priority: ST AT, Start date: 03/17/16 11:36:00 CDT, Stop date: 03/17/16 11:36:00 CDT Start Date: 03/17/16 Stop Date: 03/17/16 Status: Completed Saline Flush 0.9% 10 mL, Route: IVP, Drug Form: INJ, Dosing Weight 113.636, kg, PRN, PRN Line Flus h, Start date: 03/17/16 10:19:00 CDT, Duration: 30 day, Stop date: 04/16/16 10:1 8:00 CDT Notes: (Same as: BD Posiflush) Start Date: 03/17/16 Stop Date: 03/17/16 Status: Discontinued Sodium Chloride 0.9% (Bolus) IV 1,000 mL, 2,000 ml/hr, Infuse Over: 30 MINS, Route: IV, ONCE, Priority: STAT, Do sing Weight 113.636 kg, Start date: 03/17/16 10:19:00 CDT, Duration: 1 doses or times, Stop date: 03/17/16 10:19:00 CDT Start Date: 03/17/16 Stop Date: 03/17/16 Status: Completed Sodium Chloride 0.9% (Bolus) IV 1,000 mL, 1,000 ml/hr, Infuse Over: 1 Hour, Route: IV, ONCE, Priority: STAT, Dos ing Weight 113.636 kg, Start date: 03/17/16 10:53:00 CDT, Duration: 1 doses or t imes, Stop date: 03/17/16 10:53:00 CDT Start Date: 03/17/16 Stop Date: 03/17/16 Status: Completed Results ELECTROLYTES Most recent to 1 oldest [Reference Range]: Sodium Lvl [135-145 135 mEq/L mEq/L] (03/17/16 10:31 AM) Potassium Lvl 3.9 mEq/L [3.5-5.1 mEq/L] (03/17/16 10:31 AM) Chloride Lvl [95-109 100 mEq/L mEq/L] (03/17/16 10:31 AM) CO2 [24-32 mEq/L] 27 mEq/L (03/17/16 10:31 AM) AGAP [10.0-20.0 11.9 mEq/L mEq/L] (03/17/16 10:31 AM) CHEM PANEL Most recent to 1 oldest [Reference Range]: Creatinine Lvl 0.66 mg/dL [0.50-1.40 mg/dL] (03/17/16 10:31 AM) eGFR 122 mL/min/1.73m2 1 *NA* (03/17/16 10:31 AM) BUN [7-22 mg/dL] 11 mg/dL (03/17/16 10:31 AM) B/C Ratio [6-25] 17 (03/17/16 10:31 AM) Glucose Lvl [70-99 351 mg/dL mg/dL] *HI* (03/17/16 10:31 AM) Total Protein 7.2 g/dL [6.4-8.4 g/dL] (03/17/16 10:31 AM) Albumin Lvl [3.5-5.0 3.4 g/dL g/dL] *LOW* (03/17/16 10:31 AM) Globulin [2.0-4.0 3.8 g/dL g/dL] (03/17/16 10:31 AM) A/G Ratio [0.7-1.6] 0.9 (03/17/16 10:31 AM) Calcium Lvl 8.4 mg/dL [8.5-10.5 mg/dL] *LOW* (03/17/16 10:31 AM) Phosphorus [2.5-4.5 2.8 mg/dL mg/dL] (03/17/16 10:31 AM) Magnesium Lvl 1.9 mg/dL [1.8-2.4 mg/dL] (03/17/16 10:31 AM) ALT [0-65 unit/L] 23 unit/L (03/17/16 10:31 AM) AST [0-37 unit/L] 8 unit/L (03/17/16 10:31 AM) Alk Phos [39-136 85 unit/L unit/L] (03/17/16 10:31 AM) Bili Total [0.2-1.3 0.3 mg/dL mg/dL] (03/17/16 10:31 AM) Ketone Quantitative 0.62 mmol/L [<=0.27 mmol/L] *HI* (03/17/16 10:31 AM) Lactic Acid Lvl 1.0 mMol/L [0.5-2.2 mMol/L] (03/17/16 10:31 AM) Osmolality [280-300 303 mOsm/kg mOsm/kg] *HI* (03/17/16 10:31 AM) 1Result Comment: The eGFR is calculated [...] 1 oldest [Reference Range]: Total CK [12-191 32 unit/L unit/L] (03/17/16 10:31 AM) CK MB [0.5-3.6 0.5 ng/mL ng/mL] (03/17/16 10:31 AM) CK MB Index 1.6 [0.0-2.5] (03/17/16 10:31 AM) Troponin-I <0.02 ng/mL [0.00-0.40 ng/mL] (03/17/16 10:31 AM) ENDOCRINOLOGY Most recent to 1 oldest [Reference Range]: S Preg [Negative] Negative *NA* (03/17/16 10:31 AM) URINE AND STOOL Most recent to 1 oldest [Reference Range]: UA Turbidity [Clear] Slight Cloudy (03/17/16 10:31 AM) UA Color [Yellow] Yellow *NA* (03/17/16 10:31 AM) UA pH [5.0-8.0] 6.0 (03/17/16 10:31 AM) UA Spec Grav 1.010 [<=1.030] (03/17/16 10:31 AM) UA Glucose [Negative >=1000 mg/dL mg/dL] *ABN* (03/17/16 10:31 AM) UA Blood [Negative] Negative (03/17/16 10:31 AM) UA Ketones [Negative 15 mg/dL mg/dL] *ABN* (03/17/16 10:31 AM) UA Protein [Negative Negative mg/dL mg/dL] (03/17/16 10:31 AM) UA Urobilinogen 0.2 EU/dL [0.1-1.0 EU/dL] (03/17/16 10:31 AM) UA Bili [Negative] Negative *NA* (03/17/16 10:31 AM) UA Leuk Est Negative [Negative] (03/17/16 10:31 AM) UA Nitrite Negative [Negative] (03/17/16 10:31 AM) UA WBC [0-5 /HPF] 3-5 /HPF (03/17/16 10:31 AM) UA RBC [0-2 /HPF] 0-2 /HPF (03/17/16 10:31 AM) UA Bacteria [None Few /HPF Seen /HPF] (03/17/16 10:31 AM) UA Sq Epi [Few /LPF] Moderate /LPF *ABN* (03/17/16 10:31 AM) UA Mucus [None Seen Few /LPF /LPF] (03/17/16 10:31 AM) HEMATOLOGY Most recent to 1 oldest [Reference Range]: WBC [3.7-10.4 K/CMM] 13.0 K/CMM *HI* (03/17/16 10:31 AM) RBC [4.20-5.40 5.14 M/CMM M/CMM] (03/17/16 10:31 AM) Hgb [12.0-16.0 g/dL] 13.6 g/dL (03/17/16 10:31 AM) Hct [36.0-48.0 %] 42.4 % (03/17/16 10:31 AM) MCV [80.0-98.0 fL] 82.4 fL (03/17/16 10:31 AM) MCH [27.0-31.0 pg] 26.5 pg *LOW* (03/17/16 10:31 AM) MCHC [32.0-36.0 32.2 g/dL g/dL] (03/17/16 10:31 AM) RDW [11.5-14.5 %] 13.4 % (03/17/16 10:31 AM) Platelet [133-450 314 K/CMM K/CMM] (03/17/16 10:31 AM) MPV [7.4-10.4 fL] 7.2 fL *LOW* (03/17/16 10:31 AM) Segs [45.0-75.0 %] 66.3 % (03/17/16 10:31 AM) Lymphocytes 25.5 % [20.0-40.0 %] (03/17/16 10:31 AM) Monocytes [2.0-12.0 4.4 % %] (03/17/16 10:31 AM) Eosinophils [0.0-4.0 2.5 % %] (03/17/16 10:31 AM) Basophils [0.0-1.0 1.3 % %] *HI* (03/17/16 10:31 AM) Segs-Bands # 8.6 K/CMM [1.5-8.1 K/CMM] *HI* (03/17/16 10:31 AM) Lymphocytes # 3.3 K/CMM [1.0-5.5 K/CMM] (03/17/16 10:31 AM) Monocytes # [0.0-0.8 0.6 K/CMM K/CMM] (03/17/16 10:31 AM) Eosinophils # 0.3 K/CMM [0.0-0.5 K/CMM] (03/17/16 10:31 AM) Basophils # [0.0-0.2 0.2 K/CMM K/CMM] (03/17/16 10:31 AM) PT [12.0-14.7 12.7 seconds seconds] (03/17/16 10:31 AM) INR [0.85-1.17] 0.92 (03/17/16 10:31 AM) PTT [22.9-35.8 27.8 seconds seconds] (03/17/16 10:31 AM) Immunizations No data available for this section Procedures No data available for this section Social History Social History Type Response Smoking Status Never smoker; Ready to change: No; Concerns about tobacco use in household: No; Exposure to Tobacco Smoke None; Cigarette Smoking Last 365 Days No; Reg Smoking Cessation Counseling No Assessment and Plan No data available for this section
--- OUTSIDE RECORDS SUMMARY | 2019-03-27 16:48 | XMS REPORT | Summary of Care ---
Author Author [facility] Organization [facility] Address Unknown Phone Unavailable Encounter CLARK Shen(SABAS) [id number] Date(s): 12/02/16 - 12/03/16 [facility] [address] [place] [address]- [phone] Discharge Diagnosis: Abdominal pain in female. Discharge Disposition: Home or Self Care Attending Physician: Augusto Pitts DO Vital Signs 1 2 3 Most recent to oldest [Reference Range]: 167.64 cm (12/02/16 11:23 PM) Height 98 DegF (12/03/16 6:40 AM) 97.9 DegF (12/03/16 4:40 AM) 98 DegF (12/03/16 1:40 AM) Temperature Oral [96.4-99.1 DegF] 125/75 mmHg (12/03/16 6:40 AM) 120/70 mmHg (12/03/16 5:40 AM) 126/77 mmHg (12/03/16 4:40 AM) Blood Pressure [90-140/60-90 mmHg] 18 BRMIN (12/03/16 6:40 AM) 18 BRMIN (12/03/16 5:40 AM) 19 BRMIN (12/03/16 4:40 AM) Respiratory Rate [14-20 BRMIN] 74 bpm (12/03/16 6:40 AM) 76 bpm (12/03/16 5:40 AM) 78 bpm (12/03/16 4:40 AM) Peripheral Pulse Rate [60-100 bpm] 117.273 kg (12/02/16 11:23 PM) Weight 41.73 m2 (12/02/16 11:23 PM) Body Mass Index Problem List Condition Effective Dates Status Health Status Informant Diabetes(Confirmed) Resolved Allergies, Adverse Reactions, Alerts Substance Reaction Severity Status NKDA Active Medications azithromycin 1,000 mg, Route: PO, Drug form: TAB, ONCE, Dosing Weight 117.273, kg, Start date : 12/03/16 6:22:00 CDT, Stop date: 12/03/16 6:22:00 CDT Start Date: 12/03/16 Stop Date: 12/03/16 Status: Completed Flagyl 2,000 mg, Route: PO, ONCE, Dosing Weight 117.273, kg, Priority: STAT, Start date : 12/03/16 6:22:00 CDT, Stop date: 12/03/16 6:22:00 CDT Start Date: 12/03/16 Stop Date: 12/03/16 Status: Completed lidocaine 1 mL, Route: IM, ONCE, Dosing Weight 117.273, kg, Start date: 12/03/16 6:22:00 C DT, Stop date: 12/03/16 6:22:00 CDT Start Date: 12/03/16 Stop Date: 12/03/16 Status: Completed morphine Sulfate 4 mg, Route: IVP, ONCE, Dosing Weight 117.273, kg, Priority: STAT, Start date: 0 12/03/16 4:40:00 CDT, Stop date: 12/03/16 4:40:00 CDT Start Date: 12/03/16 Stop Date: 12/03/16 Status: Completed morphine Sulfate 4 mg, Route: IVP, ONCE, Dosing Weight 117.273, kg, Priority: STAT, Start date: 0 12/03/16 1:46:00 CDT, Stop date: 12/03/16 1:46:00 CDT Start Date: 12/03/16 Stop Date: 12/03/16 Status: Completed ondansetron 4 mg, Route: IVP, ONCE, Dosing Weight 117.273, kg, Priority: STAT, Start date: 0 12/03/16 1:46:00 CDT, Stop date: 12/03/16 1:46:00 CDT Start Date: 12/03/16 Stop Date: 12/03/16 Status: Completed Rocephin 250 mg, Route: IM, Drug form: PDR/INJ, ONCE, Dosing Weight 117.273, kg, Priority : STAT, Start date: 12/03/16 6:22:00 CDT, Stop date: 12/03/16 6:22:00 CDT Start Date: 12/03/16 Stop Date: 12/03/16 Status: Completed Saline Flush 0.9% 10 mL, Route: IVP, Drug Form: INJ, Dosing Weight 117.273, kg, PRN, PRN Line Flus h, Start date: 12/03/16 1:46:00 CDT, Duration: 30 day, Stop date: 01/02/17 1:45: 00 CDT Notes: (Same as: BD Posiflush) Start Date: 12/03/16 Stop Date: 12/03/16 Status: Discontinued Sodium Chloride 0.9% (Bolus) IV 1,000 mL, 2,000 ml/hr, Infuse Over: 30 minutes, Route: IV, ONCE, Priority: STAT, Dosing Weight 117.273 kg, Start date: 12/03/16 1:46:00 CDT, Duration: 1 doses or times, Stop date: 12/03/16 1:46:00 CDT Start Date: 12/03/16 Stop Date: 12/03/16 Status: Completed tramadol 50 mg oral tablet 50 mg=1 tab, PO, Q4H, PRN as needed for pain, X 7 day, # 24 tab, 0 Refill(s) Start Date: 12/03/16 Stop Date: 12/10/16 Status: Ordered Results ELECTROLYTES Most recent to 1 oldest [Reference Range]: Sodium Lvl [135-145 136 mEq/L mEq/L] (12/03/16 2:02 AM) Potassium Lvl 3.7 mEq/L [3.5-5.1 mEq/L] (12/03/16 2:02 AM) Chloride Lvl [95-109 100 mEq/L mEq/L] (12/03/16 2:02 AM) CO2 [24-32 mEq/L] 25 mEq/L (12/03/16 2:02 AM) AGAP [10.0-20.0 14.7 mEq/L mEq/L] (12/03/16 2:02 AM) CHEM PANEL Most recent to 1 oldest [Reference Range]: Creatinine Lvl 0.59 mg/dL [0.50-1.40 mg/dL] (12/03/16 2:02 AM) eGFR 127 mL/min/1.73m2 1 *NA* (12/03/16 2:02 AM) BUN [7-22 mg/dL] 10 mg/dL (12/03/16 2:02 AM) B/C Ratio [6-25] 17 (12/03/16 2:02 AM) Glucose Lvl [70-99 301 mg/dL mg/dL] *HI* (12/03/16 2:02 AM) Total Protein 7.8 g/dL [6.4-8.4 g/dL] (12/03/16 2:02 AM) Albumin Lvl [3.5-5.0 3.5 g/dL g/dL] (12/03/16 2:02 AM) Globulin [2.7-4.2 4.3 g/dL g/dL] *HI* (12/03/16 2:02 AM) A/G Ratio [0.7-1.6] 0.8 (12/03/16 2:02 AM) Calcium Lvl 8.8 mg/dL [8.5-10.5 mg/dL] (12/03/16 2:02 AM) ALT [0-65 unit/L] 25 unit/L (12/03/16 2:02 AM) AST [0-37 unit/L] 11 unit/L (12/03/16 2:02 AM) Alk Phos [39-136 105 unit/L unit/L] (12/03/16 2:02 AM) Bili Total [0.2-1.3 0.5 mg/dL mg/dL] (12/03/16 2:02 AM) Amylase Lvl [25-115 28 unit/L unit/L] (12/03/16 2:02 AM) Lipase Lvl [73-393 108 unit/L unit/L] (12/03/16 2:02 AM) 1Result Comment: The eGFR is calculated [...] oldest [Reference Range]: U Preg [Negative] Negative (12/03/16 2:02 AM) URINE AND STOOL Most recent to 1 oldest [Reference Range]: UA Turbidity [Clear] Slight *ABN* (12/03/16 2:02 AM) UA Color Ltyellow *NA* (12/03/16 2:02 AM) UA pH [5.0-8.0] 5.0 (12/03/16 2:02 AM) UA Spec Grav 1.041 [<=1.030] *HI* (12/03/16 2:02 AM) UA Glucose [Negative 500 mg/dL mg/dL] *ABN* (12/03/16 2:02 AM) UA Blood [Negative] Negative (12/03/16 2:02 AM) UA Ketones [Negative Trace mg/dL mg/dL] *ABN* (12/03/16 2:02 AM) UA Protein [Negative Negative mg/dL mg/dL] (12/03/16 2:02 AM) UA Urobilinogen <=1.0 mg/dL [0.1-1.0 mg/dL] *NA* (12/03/16 2:02 AM) UA Bili [Negative] Negative *NA* (12/03/16 2:02 AM) UA Leuk Est Small [Negative] *ABN* (12/03/16 2:02 AM) UA Nitrite Negative [Negative] (12/03/16 2:02 AM) UA WBC [0-5 /HPF] 1 /HPF (12/03/16 2:02 AM) UA RBC [0-2 /HPF] 1 /HPF (12/03/16 2:02 AM) UA Sq Epi [Few /LPF] Few /LPF *NA* (12/03/16 2:02 AM) HEMATOLOGY Most recent to 1 oldest [Reference Range]: WBC [3.7-10.4 K/CMM] 16.6 K/CMM *HI* (12/03/16 2:02 AM) RBC [4.20-5.40 5.50 M/CMM M/CMM] *HI* (12/03/16 2:02 AM) Hgb [12.0-16.0 g/dL] 15.1 g/dL (12/03/16 2:02 AM) Hct [36.0-48.0 %] 45.1 % (12/03/16 2:02 AM) MCV [80.0-98.0 fL] 81.8 fL (12/03/16 2:02 AM) MCH [27.0-31.0 pg] 27.4 pg (12/03/16 2:02 AM) MCHC [32.0-36.0 33.4 g/dL g/dL] (12/03/16 2:02 AM) RDW [11.5-14.5 %] 13.3 % (12/03/16 2:02 AM) Platelet [133-450 358 K/CMM K/CMM] (12/03/16 2:02 AM) MPV [7.4-10.4 fL] 7.1 fL *LOW* (12/03/16 2:02 AM) Segs [45.0-75.0 %] 54.0 % (12/03/16 2:02 AM) Lymphocytes 36.5 % [20.0-40.0 %] (12/03/16 2:02 AM) Monocytes [2.0-12.0 4.8 % %] (12/03/16 2:02 AM) Eosinophils [0.0-4.0 3.6 % %] (12/03/16 2:02 AM) Basophils [0.0-1.0 1.1 % %] *HI* (12/03/16 2:02 AM) Segs-Bands # 9.0 K/CMM [1.5-8.1 K/CMM] *HI* (12/03/16 2:02 AM) Lymphocytes # 6.0 K/CMM [1.0-5.5 K/CMM] *HI* (12/03/16 2:02 AM) Monocytes # [0.0-0.8 0.8 K/CMM K/CMM] (12/03/16 2:02 AM) Eosinophils # 0.6 K/CMM [0.0-0.5 K/CMM] *HI* (12/03/16 2:02 AM) Basophils # [0.0-0.2 0.2 K/CMM K/CMM] (12/03/16 2:02 AM) MOLECULAR DIAGNOSTIC Most recent to 1 oldest [Reference Range]: Source APTIMA Vaginal *NA* (12/03/16 5:11 AM) N gonorrhea by Amp Negative Det (APTIMA) *NA* [Negative] (12/03/16 5:11 AM) C trachomatis by Amp Negative Det (APTIMA) *NA* [Negative] (12/03/16 5:11 AM) Immunizations No data available for this section Procedures Procedure Date Related Diagnosis Body Site CS - Caesarean section Social History Social History Type Response Smoking Status Never smoker; Ready to change: No; Concerns about tobacco use in household: No; Exposure to Tobacco Smoke None; Cigarette Smoking Last 365 Days No; Reg Smoking Cessation Counseling No Assessment and Plan No data available for this section
--- OUTSIDE RECORDS SUMMARY | 2019-03-27 16:48 | XMS REPORT | Summary of Care ---
Author Author [facility] Organization [facility] Address Unknown Phone Unavailable Encounter CLARK Shen(SABAS) [id number] Date(s): 12/17/16 - 12/18/16 [facility] [address] [place] [address]- [phone] Discharge Diagnosis: Abdominal pain Discharge Disposition: Home or Self Care Attending Physician: Bhavin Peña MD Vital Signs Most recent to 1 2 oldest [Reference Range]: Height 167.64 cm (12/17/16 11:03 PM) Temperature Oral 98.5 DegF [96.4-99.1 DegF] (12/18/16 4:14 AM) Blood Pressure 136/79 mmHg 150/94 mmHg [90-140/60-90 mmHg] (12/18/16 4:14 AM) *HI* (12/17/16 11:03 PM) Respiratory Rate 18 BRMIN 16 BRMIN [14-20 BRMIN] (12/18/16 4:14 AM) (12/17/16 11:03 PM) Peripheral Pulse 78 bpm 92 bpm Rate [60-100 bpm] (12/18/16 4:14 AM) (12/17/16 11:03 PM) Weight 117.273 kg (12/17/16 11:03 PM) Body Mass Index 41.73 m2 (12/17/16 11:03 PM) Problem List Condition Effective Dates Status Health Status Informant Diabetes(Confirmed) Resolved Allergies, Adverse Reactions, Alerts Substance Reaction Severity Status NKDA Active Medications Bentyl 20 mg oral tablet 20 mg=1 tab, PO, QID-Before Meals, # 28 tab, 0 Refill(s) Start Date: 12/18/16 Stop Date: 12/25/16 Status: Ordered morphine Sulfate 4 mg, Route: IVP, ONCE, Dosing Weight 117.273, kg, Priority: STAT, Start date: 0 12/18/16 2:39:00 CDT, Stop date: 12/18/16 2:39:00 CDT Start Date: 12/18/16 Stop Date: 12/18/16 Status: Completed ondansetron 4 mg, Route: IVP, Drug form: INJ, ONCE, Dosing Weight 117.273, kg, Priority: STA T, Start date: 12/18/16 2:39:00 CDT, Stop date: 12/18/16 2:39:00 CDT Start Date: 12/18/16 Stop Date: 12/18/16 Status: Completed Phenergan 25 mg oral tablet 25 mg=1 tab, PO, Q6H, PRN Nausea, X 4 day, # 15 tab, 0 Refill(s) Start Date: 12/18/16 Stop Date: 12/22/16 Status: Ordered Saline Flush 0.9% 10 mL, Route: IVP, Drug Form: INJ, Dosing Weight 117.273, kg, PRN, PRN Line Flus h, Start date: 12/18/16 2:31:00 CDT, Duration: 30 day, Stop date: 01/17/17 2:30: 00 CDT Notes: (Same as: BD Posiflush) Start Date: 12/18/16 Stop Date: 12/18/16 Status: Discontinued Sodium Chloride 0.9% (Bolus) IV 1,000 mL, Infuse Over: 1 hr, Route: IV, ONCE, Priority: STAT, Dosing Weight 117. 273 kg, Start date: 12/18/16 2:39:00 CDT, Duration: 1 doses or times, Stop date: 12/18/16 2:39:00 CDT Start Date: 12/18/16 Stop Date: 12/18/16 Status: Completed Zantac 150 oral tablet 150 mg=1 tab, PO, BID, # 60 tab, 0 Refill(s) Start Date: 12/18/16 Stop Date: 01/17/17 Status: Ordered Results ELECTROLYTES Most recent to 1 oldest [Reference Range]: Sodium Lvl [135-145 134 mEq/L mEq/L] *LOW* (12/18/16 2:40 AM) Potassium Lvl 3.9 mEq/L [3.5-5.1 mEq/L] (12/18/16 2:40 AM) Chloride Lvl [95-109 100 mEq/L mEq/L] (12/18/16 2:40 AM) CO2 [24-32 mEq/L] 27 mEq/L (12/18/16 2:40 AM) AGAP [10.0-20.0 10.9 mEq/L mEq/L] (12/18/16 2:40 AM) CHEM PANEL Most recent to 1 oldest [Reference Range]: Creatinine Lvl 0.68 mg/dL [0.50-1.40 mg/dL] (12/18/16 2:40 AM) eGFR 121 mL/min/1.73m2 1 *NA* (12/18/16 2:40 AM) BUN [7-22 mg/dL] 14 mg/dL (12/18/16 2:40 AM) B/C Ratio [6-25] 21 (12/18/16 2:40 AM) Glucose Lvl [70-99 354 mg/dL mg/dL] *HI* (12/18/16 2:40 AM) Total Protein 7.1 g/dL [6.4-8.4 g/dL] (12/18/16 2:40 AM) Albumin Lvl [3.5-5.0 3.2 g/dL g/dL] *LOW* (12/18/16 2:40 AM) Globulin [2.7-4.2 3.9 g/dL g/dL] (12/18/16 2:40 AM) A/G Ratio [0.7-1.6] 0.8 (12/18/16 2:40 AM) Calcium Lvl 8.8 mg/dL [8.5-10.5 mg/dL] (12/18/16 2:40 AM) ALT [0-65 unit/L] 22 unit/L (12/18/16 2:40 AM) AST [0-37 unit/L] 7 unit/L (12/18/16 2:40 AM) Alk Phos [39-136 98 unit/L unit/L] (12/18/16 2:40 AM) Bili Total [0.2-1.3 0.3 mg/dL mg/dL] (12/18/16 2:40 AM) Amylase Lvl [25-115 37 unit/L unit/L] (12/18/16 2:40 AM) Lipase Lvl [73-393 104 unit/L unit/L] (12/18/16 2:40 AM) 1Result Comment: The eGFR is calculated [...] oldest [Reference Range]: U Preg [Negative] Negative (12/18/16 2:40 AM) URINE AND STOOL Most recent to 1 oldest [Reference Range]: UA Turbidity [Clear] Clear (12/18/16 2:40 AM) UA Color Ltyellow *NA* (12/18/16 2:40 AM) UA pH [5.0-8.0] 7.0 (12/18/16 2:40 AM) UA Spec Grav 1.028 [<=1.030] (12/18/16 2:40 AM) UA Glucose [Negative 500 mg/dL mg/dL] *ABN* (12/18/16 2:40 AM) UA Blood [Negative] Negative (12/18/16 2:40 AM) UA Ketones [Negative Negative mg/dL mg/dL] *NA* (12/18/16 2:40 AM) UA Protein [Negative Negative mg/dL mg/dL] (12/18/16 2:40 AM) UA Urobilinogen <=1.0 mg/dL [0.1-1.0 mg/dL] *NA* (12/18/16 2:40 AM) UA Bili [Negative] Negative *NA* (12/18/16 2:40 AM) UA Leuk Est Moderate [Negative] *ABN* (12/18/16 2:40 AM) UA Nitrite Negative [Negative] (12/18/16 2:40 AM) UA WBC [0-5 /HPF] 3 /HPF (12/18/16 2:40 AM) UA RBC [0-2 /HPF] <1 /HPF (12/18/16 2:40 AM) UA Bacteria [None Occasional /HPF Seen /HPF] *NA* (12/18/16 2:40 AM) UA Sq Epi [Few /LPF] Moderate /LPF *ABN* (12/18/16 2:40 AM) HEMATOLOGY Most recent to 1 oldest [Reference Range]: WBC [3.7-10.4 K/CMM] 12.6 K/CMM *HI* (12/18/16 2:40 AM) RBC [4.20-5.40 4.95 M/CMM M/CMM] (12/18/16 2:40 AM) Hgb [12.0-16.0 g/dL] 13.5 g/dL (12/18/16 2:40 AM) Hct [36.0-48.0 %] 40.6 % (12/18/16 2:40 AM) MCV [80.0-98.0 fL] 82.0 fL (12/18/16 2:40 AM) MCH [27.0-31.0 pg] 27.3 pg (12/18/16 2:40 AM) MCHC [32.0-36.0 33.3 g/dL g/dL] (12/18/16 2:40 AM) RDW [11.5-14.5 %] 13.2 % (12/18/16 2:40 AM) Platelet [133-450 316 K/CMM K/CMM] (12/18/16 2:40 AM) MPV [7.4-10.4 fL] 6.9 fL *LOW* (12/18/16 2:40 AM) Segs [45.0-75.0 %] 48.0 % (12/18/16 2:40 AM) Lymphocytes 40.9 % [20.0-40.0 %] *HI* (12/18/16 2:40 AM) Monocytes [2.0-12.0 5.3 % %] (12/18/16 2:40 AM) Eosinophils [0.0-4.0 4.6 % %] *HI* (12/18/16 2:40 AM) Basophils [0.0-1.0 1.2 % %] *HI* (12/18/16 2:40 AM) Segs-Bands # 6.0 K/CMM [1.5-8.1 K/CMM] (12/18/16 2:40 AM) Lymphocytes # 5.1 K/CMM [1.0-5.5 K/CMM] (12/18/16 2:40 AM) Monocytes # [0.0-0.8 0.7 K/CMM K/CMM] (12/18/16 2:40 AM) Eosinophils # 0.6 K/CMM [0.0-0.5 K/CMM] *HI* (12/18/16 2:40 AM) Basophils # [0.0-0.2 0.2 K/CMM K/CMM] (12/18/16 2:40 AM) Immunizations No data available for this [...]
--- OUTSIDE RECORDS SUMMARY | 2019-03-27 16:48 | XMS REPORT | Summary of Care ---
Author Author [facility] Organization [facility] Address Unknown Phone Unavailable Encounter CLARK Shen(SABAS) [id number] Date(s): 01/10/17 - 01/11/17 [facility] [address] [place] [address]- [phone] Discharge Diagnosis: Strep pharyngitis Discharge Diagnosis: Influenza B Discharge Diagnosis: Abdominal pain in female Discharge Disposition: Home or Self Care Attending Physician: Sally Brewer MD Vital Signs 1 2 3 Most recent to oldest [Reference Range]: 97.8 DegF (01/11/17 12:59 AM) 97.6 DegF (01/11/17 12:01 AM) 98.3 DegF (01/10/17 9:23 PM) Temperature Oral [96.4-99.1 DegF] 111/66 mmHg (01/11/17 12:59 AM) 109/68 mmHg (01/11/17 12:01 AM) 108/67 mmHg (01/10/17 9:23 PM) Blood Pressure [90-140/60-90 mmHg] 16 BRMIN (01/11/17 12:59 AM) 16 BRMIN (01/11/17 12:01 AM) 18 BRMIN (01/10/17 9:23 PM) Respiratory Rate [14-20 BRMIN] 84 bpm (01/11/17 12:59 AM) 88 bpm (01/11/17 12:01 AM) 108 bpm *HI* (01/10/17 9:23 PM) Peripheral Pulse Rate [60-100 bpm] 118.182 kg (01/10/17 5:01 PM) Weight Problem List Condition Effective Dates Status Health Status Informant Diabetes(Confirmed) Resolved Allergies, Adverse Reactions, Alerts Substance Reaction Severity Status NKDA Active Medications Augmentin 875 mg oral tablet 875 mg=1 tab, PO, Q12H, X 7 day, # 14 tab, 0 Refill(s) Start Date: 01/11/17 Stop Date: 01/18/17 Status: Ordered ibuprofen 800 mg, 2 tab, Route: PO, Drug form: TAB, ONCE, Dosing Weight 118.182, kg, Prior ity: STAT, Start date: 01/10/17 19:25:00 CDT, Stop date: 01/10/17 19:25:00 CDT Notes: (Same as: Motrin)"Do Not Crush" Give with food. Start Date: 01/10/17 Stop Date: 01/10/17 Status: Completed Motrin 800 mg oral tablet 800 mg=1 tab, PO, Q8H, PRN Pain, Take with food, X 5 day, # 15 tab, 0 Refill(s) Start Date: 01/11/17 Stop Date: 01/16/17 Status: Ordered NS (Bolus) IV 1,000 mL, 1,000 ml/hr, Infuse Over: 1 hr, Route: IV, 1,000, Drug form: INJ, ONCE , Priority: STAT, Dosing Weight 118.182 kg, Start date: 01/10/17 19:25:00 CDT, D uration: 1 doses or times, Stop date: 01/10/17 19:25:00 CDT Start Date: 01/10/17 Stop Date: 01/10/17 Status: Completed NS (Bolus) IV 1,000 mL, 1,000 ml/hr, Infuse Over: 1 hr, Route: IV, 1,000, Drug form: INJ, ONCE , Priority: STAT, Dosing Weight 118.182 kg, Start date: 01/10/17 21:26:00 CDT, D uration: 1 doses or times, Stop date: 01/10/17 21:26:00 CDT Start Date: 01/10/17 Stop Date: 01/10/17 Status: Completed Zofran 4 mg, 2 mL, Route: IVP, Drug form: INJ, ONCE, Dosing Weight 118.182, kg, Priorit y: STAT, Start date: 01/10/17 19:25:00 CDT, Stop date: 01/10/17 19:25:00 CDT Notes: (Same as: Zofran) MEDICATION WASTE Product Size: 4 mgProduct Was jj: ___ mg Start Date: 01/10/17 Stop Date: 01/10/17 Status: Completed Results ELECTROLYTES Most recent to 1 oldest [Reference Range]: Sodium Lvl [135-145 133 mEq/L mEq/L] *LOW* (01/10/17 7:31 PM) Potassium Lvl 4.0 mEq/L [3.5-5.1 mEq/L] (01/10/17 7:31 PM) Chloride Lvl [95-109 96 mEq/L mEq/L] (01/10/17 7:31 PM) CO2 [24-32 mEq/L] 28 mEq/L (01/10/17 7:31 PM) AGAP [10.0-20.0 13.0 mEq/L mEq/L] (01/10/17 7:31 PM) CHEM PANEL Most recent to 1 oldest [Reference Range]: Creatinine Lvl 0.67 mg/dL [0.50-1.40 mg/dL] (01/10/17 7:31 PM) eGFR 122 mL/min/1.73m2 1 *NA* (01/10/17 7:31 PM) BUN [7-22 mg/dL] 7 mg/dL (01/10/17 7:31 PM) B/C Ratio [6-25] 10 (01/10/17 7:31 PM) Glucose Lvl [70-99 271 mg/dL mg/dL] *HI* (01/10/17 7:31 PM) Total Protein 7.3 g/dL [6.4-8.4 g/dL] (01/10/17 7:31 PM) Albumin Lvl [3.5-5.0 3.4 g/dL g/dL] *LOW* (01/10/17 7:31 PM) Globulin [2.7-4.2 3.9 g/dL g/dL] (01/10/17 7:31 PM) A/G Ratio [0.7-1.6] 0.9 (01/10/17 7:31 PM) Calcium Lvl 8.5 mg/dL [8.5-10.5 mg/dL] (01/10/17 7:31 PM) ALT [0-65 unit/L] 39 unit/L (01/10/17 7:31 PM) AST [0-37 unit/L] 15 unit/L (01/10/17 7:31 PM) Alk Phos [39-136 74 unit/L unit/L] (01/10/17 7:31 PM) Bili Total [0.2-1.3 0.4 mg/dL mg/dL] (01/10/17 7:31 PM) 1Result Comment: The eGFR is calculated [...] Most recent to 1 oldest [Reference Range]: hCG Tot <1 mIU/mL *NA* (01/10/17 7:31 PM) URINE AND STOOL Most recent to 1 oldest [Reference Range]: UA Turbidity [Clear] Clear (01/10/17 7:45 PM) UA Color Ltyellow *NA* (01/10/17 7:45 PM) UA pH [5.0-8.0] 5.0 (01/10/17 7:45 PM) UA Spec Grav 1.037 [<=1.030] *HI* (01/10/17 7:45 PM) UA Glucose [Negative 500 mg/dL mg/dL] *ABN* (01/10/17 7:45 PM) UA Blood [Negative] Small *ABN* (01/10/17 7:45 PM) UA Ketones [Negative Negative mg/dL mg/dL] *NA* (01/10/17 7:45 PM) UA Protein [Negative Negative mg/dL mg/dL] (01/10/17 7:45 PM) UA Urobilinogen <=1.0 mg/dL [0.1-1.0 mg/dL] *NA* (01/10/17 7:45 PM) UA Bili [Negative] Negative *NA* (01/10/17 7:45 PM) UA Leuk Est Negative [Negative] (01/10/17 7:45 PM) UA Nitrite Negative [Negative] (01/10/17 7:45 PM) UA RBC [0-2 /HPF] 2 /HPF (01/10/17 7:45 PM) UA Sq Epi [Few /LPF] Few /LPF *NA* (01/10/17 7:45 PM) HEMATOLOGY Most recent to 1 oldest [Reference Range]: WBC [3.7-10.4 K/CMM] 12.9 K/CMM *HI* (01/10/17 7:31 PM) RBC [4.20-5.40 5.04 M/CMM M/CMM] (01/10/17 7:31 PM) Hgb [12.0-16.0 g/dL] 14.2 g/dL (01/10/17 7:31 PM) Hct [36.0-48.0 %] 41.7 % (01/10/17 7:31 PM) MCV [80.0-98.0 fL] 82.7 fL (01/10/17 7:31 PM) MCH [27.0-31.0 pg] 28.1 pg (01/10/17 7:31 PM) MCHC [32.0-36.0 34.0 g/dL g/dL] (01/10/17 7:31 PM) RDW [11.5-14.5 %] 13.1 % (01/10/17 7:31 PM) Platelet [133-450 326 K/CMM K/CMM] (01/10/17 7:31 PM) MPV [7.4-10.4 fL] 7.0 fL *LOW* (01/10/17 7:31 PM) Segs [45.0-75.0 %] 74.4 % (01/10/17 7:31 PM) Lymphocytes 16.4 % [20.0-40.0 %] *LOW* (01/10/17 7:31 PM) Monocytes [2.0-12.0 8.5 % %] (01/10/17 7:31 PM) Eosinophils [0.0-4.0 0.2 % %] (01/10/17 7:31 PM) Basophils [0.0-1.0 0.5 % %] (01/10/17 7:31 PM) Segs-Bands # 9.6 K/CMM [1.5-8.1 K/CMM] *HI* (01/10/17 7:31 PM) Lymphocytes # 2.1 K/CMM [1.0-5.5 K/CMM] (01/10/17 7:31 PM) Monocytes # [0.0-0.8 1.1 K/CMM K/CMM] *HI* (01/10/17 7:31 PM) Basophils # [0.0-0.2 0.1 K/CMM K/CMM] (01/10/17 7:31 PM) RAPID Most recent to 1 oldest [Reference Range]: Grp A Strep Scr Positive [Negative] *ABN* (01/10/17 7:31 PM) VIRAL - SEROLOGY Most recent to 1 oldest [Reference Range]: Influ A [Negative] Negative (01/10/17 7:31 PM) Influ B [Negative] Positive *ABN* (01/10/17 7:31 PM) Immunizations No data available for this section Procedures Procedure Date Related Diagnosis Body Site CS - Caesarean section Social History Social History Type Response Smoking Status Never smoker; Type: Cigarettes; Exposure to Tobacco Smoke None; Cigarette Smoking Last 365 Days No; Reg Smoking Cessation Counseling No Assessment and Plan No data available for this section
--- OUTSIDE RECORDS SUMMARY | 2019-03-27 16:49 | XMS REPORT | Summary of Care ---
Author Author [facility] Address [address] [place] [address] Phone Unavailable Functional Status Name Dates Details Functional status health issues are not documented Status: Name Dates Details Cognitive status health issues are not documented Status: Problems Name Dates Details Left knee pain (719.46, M25.562) Status: Active Bursitis of left knee (726.60, M70.52) Status: Active Medications Name Dates Details Medications not documented Allergies and Adverse Reactions Name Dates Details Allergy history not documented Status: Procedures Procedure Dates Details Procedures not documented Immunization Name Dates Details Immunizations not documented Social History Name Dates Details Unknown if ever smoked Vital Signs Date Test Result Details No Known Vitals to report Results Date Description Value Details Results not documented Plan of Care Name Dates Details Planned Observations Planned Goals not documented Instructions Name Dates Details Instructions not documented Encounters Appointment; NIRMALA HALEY P.A. Encounter Diagnosis: Problem not documented On: 10-Oct-2017 13:30 Appointment; DELILAH MONGE M.D. Encounter Diagnosis: Problem not documented On: 13-Dec-2017 16:00
--- OUTSIDE RECORDS SUMMARY | 2019-03-27 16:49 | XMS REPORT ---
Author Author [facility] Address Unknown Phone Unavailable Care Team Providers Care Lotus Notes Developer Name Role Phone Unavailable Unavailable Payers Payer Name Policy Type Policy Number Effective Date Expiration Date Problems This patient has no known problems. Allergies, Adverse Reactions, Alerts Allergy Name Allergy Type Status Severity Reaction(s) Onset Date Inactive Date Treating Clinician Comments No Known Allergies DA Active U 2019-01-26 00:00:00 No Known Allergies DA Active U 2018-04-26 00:00:00 Medications This patient has no known medications. Results Test Description Test Time Test Comments Text Results Atomic Results Result Comments - CT ABD PELVIS W/CONT 2019-01-26 13:41:00 Name: ALEM RAWLS [facility] : 1990 Age/S: 28 / F [address] [facility] Unit #: [id number] Loc: [place] [address] Phys: Katarina Bynum MD Acct: [id number] Dis Date: Status: REG ER PHONE #: [phone] Exam Date: 01/26/2019 1323 FAX #: [phone] Reason: ABDOMONAL PAIN EXAMS: CPT CODE: [id number] CT ABD PELVIS W/CONT 11834 HISTORY: Abdominal pain. COMPARISON: CT scan from June 24, 2016 and February 15, 2016. CT abdomen and pelvis with IV contrast: 100 mL of Isovue 370. Automated exposure control. CT of abdomen: The lung bases are clear. The liver is enhancing homogeneously without discrete mass. The liver is enlarged at 26 cm in length. Gallbladder is without radiopaque stones. Portal vein and hepatic artery are patent. Unremarkable spleen. The stomach is distended incompletely but it is normal in appearance. Pancreas enhances homogeneously. Unremarkable adrenals. Kidneys are free from hydroureteronephrosis. Homogeneous enhancement. Bilateral excretion. Well-opacified abdominal and pelvic vasculature. No bowel obstruction or colitis or diverticulitis or enteritis. Consti pation. CT PELVIS: Appendix is not visible but no inflammatory changes. Pelvic bowel loops are unobstructed. Unremarkable uterus and ovaries. Urinary bladder is unremarkable. No pelvic pathologic adenopathy. Subcutaneous tissues and the musculature are normal in appearance. No lytic or blastic lesions are noted within the bony skeleton. DJD. IMPRESSION: Appendix is not visible but no inflammation. No bowel obstruction or colitis or diverticulitis or enteritis. Constipation. Hepatomegaly with diffuse fatty infiltration. No hydroureteronephrosis with unremarkable incompletely distended urinary bladder. No free fluid or free air or abscess. PAGE 1 Signed Report (CONTINUED) Name: ALEM RAWLS [facility] : 1990 Age/S: 28 / F [address] [facility] Unit #: [id number] Loc: [place] [address] Phys: Katarina Bynum MD Acct: [id number] Dis Date: Status: REG ER PHONE #: [phone] Exam Date: 01/26/2019 1323 FAX #: [phone] Reason: ABDOMONAL PAIN EXAMS: CPT CODE: [id number] CT ABD PELVIS W/CONT 78676 <Continued> at 1341 Reported and signed by: Roni Olvera M.D. CC: Katarina Bynum MD; Efraín Garcia Technologist:Jyoti Monique RT(R)(CT) CTDI: DLP: Trnscb Date/Time: 01/26/2019 (1341) [email or web address] Orig Print D/T: S: 01/26/2019 (8088) PAGE 2 Signed Report URINALYSIS COMPLETE 2019-01-26 13:10:00 UA COLOR (test code=COLU) YELLOW YELLOW UA APPEARANCE (test code=APPU) HAZY CLEAR UA GLUCOSE DIPSTICK (test code=DGLUU) 1000 (3+) mg/dL NEGATIVE UA BILIRUBIN DIPSTICK (test code=BILU) NEGATIVE NEGATIVE UA KETONE DIPSTICK (test code=KETU) 50 (2+) mg/dL NEGATIVE UA SPECIFIC GRAVITY (test code=SGU) 1.020 1.001-1.035 UA BLOOD DIPSTICK (test code=KENA) 10 (Trace) Jefe/uL NEGATIVE UA PH DIPSTICK (test code=JASMINA) 6.0 5.0-8.0 UA PROTEIN DIPSTICK (test code=PROU) NEGATIVE mg/dL Neg-15 UA UROBILINIOGEN DIPSTICK (test code=URO) NORMAL mg/dL 0.0-0.2 UA NITRITE DIPSTICK (test code=MARIA LUISA) NEGATIVE NEGATIVE UA LEUKOCYTE ESTERASE DIPSTICK (test code=LEUU) 500 Makenna/uL (3+) uL NEGATIVE UA WBC (test code=WBCU) 10-20 per HPF 0-5 UA RBC (test code=RBCU) 1-3 per HPF 0-5 UA EPITHELIAL CELLS (test code=EPIU) MANY per HPF Few UA BACTERIA (test code=BACU) MANY per HPF NONE Urine Source? Clean CatchUR HCG [id number] 13:10:00* Test Item Value Reference Range Comments UR HCG QUAL (test code=HCGQLU) NEGATIVE This HCGQL test is NOT applicable for MALE patients.Check with nurse about probable order error.If Tumor Marker Test needed, nurse should order test "HCGTU"(Test #550.82821) Urine Source? Clean CatchCOMPREHENSIVE METABOLIC [id number] 13:01:00* Test Item Value Reference Range Comments SODIUM (test code=NA) 135 mmol/L 135-148 POTASSIUM (test code=K) 3.7 mmol/L 3.5-5.1 CHLORIDE (test code=CL) 99 mmol/L 101-109 CARBON DIOXIDE (test code=CO2) 24.8 mmol/L 21-32 ANION GAP (test code=GAP) 15 mmol/L 10-20 GLUCOSE (test code=GLU) 261 mg/dL 74-106 BLOOD UREA NITROGEN (test code=BUN) 7 mg/dL 3-21 CREATININE (test code=CREAT) 0.47 mg/dL 0.55-1.3 BUN/CREATININE RATIO (test code=BUN/CREA) 14.9 10-20 TOTAL PROTEIN (test code=PROT) 7.8 gram/dL 6.4-8.2 ALBUMIN (test code=ALB) 3.4 g/dL 3.4-5.0 GLOBULIN (test code=GLOB) 4.4 g/dL 2.7-4.2 ALBUMIN/GLOBULIN RATIO (test code=A/G) 0.8 0.75-1.50 CALCIUM (test code=CA) 8.3 mg/dL 8.4-10.2 BILIRUBIN TOTAL (test code=BILT) 0.40 mg/dL 0.2-1.2 SGOT/AST (test code=AST) 14 IUnit/L 15-37 SGPT/ALT (test code=ALT) 36 U/L 10-69 ALKALINE PHOSPHATASE TOTAL (test code=ALKP) 88 IUnit/L 45-117 Note change in reference range due to change in reagent. URINALYSIS [id number] 12:54:00* Test Item Value Reference Range Comments UA COLOR (test code=COLU) YELLOW UA APPEARANCE (test code=APPU) CLEAR UA BILIRUBIN DIPSTICK (test code=BILU) NEGATIVE UA SPECIFIC GRAVITY (test code=SGU) 1.001-1.035 UA PH DIPSTICK (test code=JASMINA) 5.0-8.0 UA UROBILINIOGEN DIPSTICK (test code=URO) mg/dL 0.0-0.2 UA NITRITE DIPSTICK (test code=MARIA LUISA) NEGATIVE UA LEUKOCYTE ESTERASE DIPSTICK (test code=LEUU) uL NEGATIVE UA WBC (test code=WBCU) per HPF 0-5 UA RBC (test code=RBCU) per HPF 0-5 UA EPITHELIAL CELLS (test code=EPIU) per HPF Few UA BACTERIA (test code=BACU) per HPF NONE Urine Source? Clean CatchUR HCG [id number] 12:54:00* Test Item Value Reference Range Comments UR HCG QUAL (test code=HCGQLU) NEGATIVE This HCGQL test is NOT applicable for MALE patients.Check with nurse about probable order error.If Tumor Marker Test needed, nurse should order test "HCGTU"(Test #550.47503) Urine Source? Clean CatchLACTIC [id number] 12:52:00* Test Item Value Reference Range Comments LACTIC ACID (test code=LACT) 0.8 MMOL/L 0.4-1.9 - XR CHEST 2 [id number] 12:37:00 Name: ALEM RAWLS [facility] : 1990 Age/S:28 /F [address] [facility] Unit#:[id number] Loc: [place] [address] Phys: Katarina Bynum MD Dis Date: PHONE #: [phone] Status: REG ER FAX #: [phone] Exam Date: 01/26/2019 Reason: COUGH AND FEVER AND ANTERIOR CHEST EXAMS: CPT CODE: [id number] XR CHEST 2 V 52298 HISTORY: Cough and fever. COMPARISON: January 16, 2019. AP and lateral view of the chest: No acute infiltrates, effusion or congestion. Cardiac and the mediastinal silhouette are normal. IMPRESSION: No acute infiltrates, effusion or congestion. at 1237 Reported and signed by: Roni Olvera M.D. CC: Katarina Bynum MD; Efraín Garcia Technologist: Jyoti Monique RT(R)(CT) Trnscrpt Data: 01/26/2019 (4580) [email or web address] Orig Print D/T: S: 01/26/2019 (8659) PAGE 1 Signed Report CBC W/AUTO DIFF 2019-01-26 12:30:00* Test Item Value Reference Range Comments WHITE BLOOD CELL (test code=WBC) 9.5 K/mm3 4.5-12.5 RED BLOOD CELL (test code=RBC) 5.36 mill/mm3 3.7-5.2 HEMOGLOBIN (test code=HGB) 14.6 gram/dL 11.5-15.5 HEMATOCRIT (test code=HCT) 44.5 % 36.0-46.0 MEAN CELL VOLUME (test code=MCV) 83.0 fL 80-98 MEAN CELL HGB (test code=MCH) 27.2 picogram 27.0-33.0 MEAN CELL HGB CONCETRATION (test code=MCHC) 32.8 gram/dL 33.0-36.0 RED CELL DISTRIBUTION WIDTH (test code=RDW) 12.0 % 11.6-16.2 RED CELL DISTRIBUTION WIDTH SD (test code=RDW-SD) 36.6 fL 37.0-51.0 PLATELET COUNT (test code=PLT) 336 K/mm3 150-450 MEAN PLATELET VOLUME (test code=MPV) 8.6 fL 6.7-11.0 NEUTROPHIL % (test code=NT%) 72.9 % 39.0-69.0 LYMPHOCYTE % (test code=LY%) 19.5 % 25.0-55.0 MONOCYTE % (test code=MO%) 6.0 % 0.0-10.0 EOSINOPHIL % (test code=EO%) 1.1 % 0.0-5.0 BASOPHIL % (test code=BA%) 0.3 % 0.0-1.0 NEUTROPHIL # (test code=NT#) 6.94 K/mm3 1.8-7.7 LYMPHOCYTE # (test code=LY#) 1.85 K/mm3 1.0-5.0 MONOCYTE # (test code=MO#) 0.57 K/mm3 0-0.8 EOSINOPHIL # (test code=EO#) 0.10 K/mm3 0.0-0.5 BASOPHIL # (test code=BA#) 0.03 K/mm3 0.0-0.2 MANUAL DIFF REQUIRED (test code=MDIFF) NO [id number] 18:11:00* Test Item Value Reference Range Comments GLUBED (test code=GLUBED) 228 mg/dL 74-106 Performed by certified open developer operator at [facility] URINALYSIS [id number] 17:27:00* Test Item Value Reference Range Comments UA COLOR (test code=COLU) Light-Yellow YELLOW UA APPEARANCE (test code=APPU) CLEAR CLEAR UA GLUCOSE DIPSTICK (test code=DGLUU) >1000 (4+) mg/dL NEGATIVE UA BILIRUBIN DIPSTICK (test code=BILU) NEGATIVE mg/dL NEGATIVE UA KETONE DIPSTICK (test code=KETU) NEGATIVE mg/dL NEGATIVE UA SPECIFIC GRAVITY (test code=SGU) 1.042 1.001-1.035 UA BLOOD DIPSTICK (test code=KENA) Negative mg/dL NEGATIVE UA PH DIPSTICK (test code=JASMINA) 5.5 5.0-8.0 UA PROTEIN DIPSTICK (test code=PROU) NEGATIVE mg/dL NEGATIVE UA UROBILINIOGEN DIPSTICK (test code=URO) Normal mg/dL NEGATIVE UA NITRITE DIPSTICK (test code=MARIA LUISA) NEGATIVE NEGATIVE UA LEUKOCYTE ESTERASE W REFLEX (test code=LEUUR) NEGATIVE Makenna/uL NEGATIVE UA WBC (test code=WBCU) 0-5 per HPF 0-5 UA RBC (test code=RBCU) 0-2 #/HPF 0-5 UA EPITHELIAL CELLS (test code=EPIU) FEW per HPF FEW UA BACTERIA (test code=BACU) FEW #/HPF NONE UA MUCUS (test code=MUCU) FEW #/LPF FEW Urine Source? Clean CatchCBC W/MANUAL [id number] 16:24:00* Test Item Value Reference Range Comments WHITE BLOOD CELL (test code=WBC) 10.5 K/mm3 4.5-12.5 RED BLOOD CELL (test code=RBC) 5.17 mill/mm3 3.7-5.2 HEMOGLOBIN (test code=HGB) 13.8 gram/dL 11.5-15.5 HEMATOCRIT (test code=HCT) 44.0 % 36.0-46.0 MEAN CELL VOLUME (test code=MCV) 85.1 fL 80-98 MEAN CELL HGB (test code=MCH) 26.7 picogram 27.0-33.0 MEAN CELL HGB CONCETRATION (test code=MCHC) 31.4 gram/dL 33.0-36.0 RED CELL DISTRIBUTION WIDTH (test code=RDW) 12.3 % 11.6-16.2 RED CELL DISTRIBUTION WIDTH SD (test code=RDW-SD) 37.6 fL 37.0-51.0 PLATELET COUNT (test code=PLT) 362 K/mm3 150-450 MEAN PLATELET VOLUME (test code=MPV) 8.7 fL 6.7-11.0 IMMATURE GRANULOCYTE % (test code=IG%) 0.5 % 0.0-5.0 NUCLEATED RBC % (test code=NRBC%) 0.0 % 0-0 NEUTROPHIL # (test code=NT#) 4.93 K/mm3 1.8-7.7 IMMATURE GRANULOCYTE # (test code=IG#) 0.05 x10 3/uL 0-0.03 LYMPHOCYTE # (test code=LY#) 4.16 K/mm3 1.0-5.0 MONOCYTE # (test code=MO#) 0.61 K/mm3 0-0.8 EOSINOPHIL # (test code=EO#) 0.69 K/mm3 0.0-0.5 BASOPHIL # (test code=BA#) 0.05 K/mm3 0.0-0.2 NUCLEATED RBC # (test code=NRBC#) 0.00 K/mm3 0.0-0.1 MANUAL DIFF REQUIRED (test code=MDIFF) YES STAIN ACCEPTABILITY (test code=STN ACCEPTABLE) STAIN ACCEPTABLE TOTAL CELLS COUNTED (test code=TCC) 115 #CELLS SEGMENTED NEUTROPHILS (test code=SEG) 51.3 % 39-69 BAND NEUTROPHIL (test code=BAND) 0 % 0-10 LYMPHOCYTE (test code=LYMPH) 39.1 % 25-55 REACTIVE LYMPH (test code=RELYMPH) 0 % MONOCYTE (test code=MON) 4.3 % 0-10 EOSINOPHIL (test code=EOS) 4.4 % 0.0-5.0 BASOPHIL (test code=BASO) 0.9 % 0-1.0 METAMYELOCYTE (test code=META) 0 % 0-0 MYELOCYTE (test code=MYELO) 0 % 0.0-0.0 PROMYELOCYTE (test code=PROM) 0 % 0-0 MORPHOLOGY COMMENT (test code=MOC) NORMAL PLATELET ESTIMATE (test code=PLTEST) ADEQUATE PLATELET MORPHOLOGY (test code=PLTMORPH) NORMAL IMMATURE FORMS (test code=IMMAT) 0 % 0-0 COMPREHENSIVE METABOLIC [id number] 16:22:00* Test Item Value Reference Range Comments SODIUM (test code=NA) 135 mmol/L 136-145 POTASSIUM (test code=K) 3.9 mmol/L 3.5-5.1 CHLORIDE (test code=CL) 99.0 mmol/L 98-107 CARBON DIOXIDE (test code=CO2) 29.0 mmol/L 21-32 ANION GAP (test code=GAP) 10.9 10-20 GLUCOSE (test code=GLU) 303 mg/dL 74-106 BLOOD UREA NITROGEN (test code=BUN) 7 mg/dL 7-18 GLOMERULAR FILTRATION RATE (test code=GFR) > 60 mL/min >=60 Estimated GFR by using Modified MDRD formula.Chronic kidney disease is defined as either kidney damageor GFR <60 mL/min/1.73 m2 for >3 months. CREATININE (test code=CREAT) 0.60 mg/dL 0.55-1.02 Note change in reference range due to change in reagent. BUN/CREATININE RATIO (test code=BUN/CREA) 11.7 10-20 TOTAL PROTEIN (test code=PROT) 7.3 gram/dL 6.4-8.2 ALBUMIN (test code=ALB) 3.5 g/dL 3.4-5.0 GLOBULIN (test code=GLOB) 3.8 gram/dL 2.7-4.2 ALBUMIN/GLOBULIN RATIO (test code=A/G) 0.9 0.75-1.50 CALCIUM (test code=CA) 8.5 mg/dL 8.5-10.1 BILIRUBIN TOTAL (test code=BILT) 0.30 mg/dL 0.0-1.0 SGOT/AST (test code=AST) 13 IUnit/L 15-37 SGPT/ALT (test code=ALT) 35 IUnit/L 12-78 ALKALINE PHOSPHATASE TOTAL (test code=ALKP) 87 IUnit/L 45-117 Note change in reference range due to change in reagent. [id number] 16:22:00* Test Item Value Reference Range Comments LIPASE (test code=LIP) 88 U/L 73.0-393.0 HCG SERUM [id number] 16:22:00* Test Item Value Reference Range Comments HCG SERUM QUAL (test code=HCGQL) NEGATIVE NEGATIVE This HCGQL test is NOT applicable for MALE patients.Check with nurse about probable order error.If Tumor Marker Test needed, nurse should order test "HCGTU"(Test #550.49161) [id number] 16:22:00* Test Item Value Reference Range Comments TROPONIN-I (test code=TROPI) <0.015 ng/mL 0-0.045 COMPREHENSIVE METABOLIC [id number] 16:17:00* Test Item Value Reference Range Comments SODIUM (test code=NA) 135 mmol/L 136-145 POTASSIUM (test code=K) 3.9 mmol/L 3.5-5.1 CHLORIDE (test code=CL) 99.0 mmol/L 98-107 CARBON DIOXIDE (test code=CO2) mmol/L 21-32 ANION GAP (test code=GAP) 10-20 GLUCOSE (test code=GLU) mg/dL 74-106 BLOOD UREA NITROGEN (test code=BUN) mg/dL 7-18 GLOMERULAR FILTRATION RATE (test code=GFR) mL/min >=60 CREATININE (test code=CREAT) mg/dL 0.55-1.02 BUN/CREATININE RATIO (test code=BUN/CREA) 10-20 TOTAL PROTEIN (test code=PROT) gram/dL 6.4-8.2 ALBUMIN (test code=ALB) g/dL 3.4-5.0 GLOBULIN (test code=GLOB) gram/dL 2.7-4.2 ALBUMIN/GLOBULIN RATIO (test code=A/G) 0.75-1.50 CALCIUM (test code=CA) mg/dL 8.5-10.1 BILIRUBIN TOTAL (test code=BILT) mg/dL 0.0-1.0 SGOT/AST (test code=AST) IUnit/L 15-37 SGPT/ALT (test code=ALT) IUnit/L 12-78 ALKALINE PHOSPHATASE TOTAL (test code=ALKP) IUnit/L 45-117 [id number] 16:17:00* Test Item Value Reference Range Comments LIPASE (test code=LIP) U/L 73.0-393.0 HCG SERUM [id number] 16:17:00* Test Item Value Reference Range Comments HCG SERUM QUAL (test code=HCGQL) NEGATIVE NEGATIVE This HCGQL test is NOT applicable for MALE patients.Check with nurse about probable order error.If Tumor Marker Test needed, nurse should order test "HCGTU"(Test #550.37485) COMPREHENSIVE METABOLIC [id number] 16:15:00* Test Item Value Reference Range Comments SODIUM (test code=NA) 135 mmol/L 136-145 POTASSIUM (test code=K) 3.9 mmol/L 3.5-5.1 CHLORIDE (test code=CL) 99.0 mmol/L 98-107 CARBON DIOXIDE (test code=CO2) mmol/L 21-32 ANION GAP (test code=GAP) 10-20 GLUCOSE (test code=GLU) mg/dL 74-106 BLOOD UREA NITROGEN (test code=BUN) mg/dL 7-18 GLOMERULAR FILTRATION RATE (test code=GFR) mL/min >=60 CREATININE (test code=CREAT) mg/dL 0.55-1.02 BUN/CREATININE RATIO (test code=BUN/CREA) 10-20 TOTAL PROTEIN (test code=PROT) gram/dL 6.4-8.2 ALBUMIN (test code=ALB) g/dL 3.4-5.0 GLOBULIN (test code=GLOB) gram/dL 2.7-4.2 ALBUMIN/GLOBULIN RATIO (test code=A/G) 0.75-1.50 CALCIUM (test code=CA) mg/dL 8.5-10.1 BILIRUBIN TOTAL (test code=BILT) mg/dL 0.0-1.0 SGOT/AST (test code=AST) IUnit/L 15-37 SGPT/ALT (test code=ALT) IUnit/L 12-78 ALKALINE PHOSPHATASE TOTAL (test code=ALKP) IUnit/L 45-117 [id number] 16:15:00* Test Item Value Reference Range Comments LIPASE (test code=LIP) U/L 73.0-393.0 HCG SERUM [id number] 16:15:00* Test Item Value Reference Range Comments HCG SERUM QUAL (test code=HCGQL) NEGATIVE CBC W/MANUAL [id number] 15:59:00* Test Item Value Reference Range Comments WHITE BLOOD CELL (test code=WBC) 10.5 K/mm3 4.5-12.5 RED BLOOD CELL (test code=RBC) 5.17 mill/mm3 3.7-5.2 HEMOGLOBIN (test code=HGB) 13.8 gram/dL 11.5-15.5 HEMATOCRIT (test code=HCT) 44.0 % 36.0-46.0 MEAN CELL VOLUME (test code=MCV) 85.1 fL 80-98 MEAN CELL HGB (test code=MCH) 26.7 picogram 27.0-33.0 MEAN CELL HGB CONCETRATION (test code=MCHC) 31.4 gram/dL 33.0-36.0 RED CELL DISTRIBUTION WIDTH (test code=RDW) 12.3 % 11.6-16.2 RED CELL DISTRIBUTION WIDTH SD (test code=RDW-SD) 37.6 fL 37.0-51.0 PLATELET COUNT (test code=PLT) 362 K/mm3 150-450 MEAN PLATELET VOLUME (test code=MPV) 8.7 fL 6.7-11.0 IMMATURE GRANULOCYTE % (test code=IG%) 0.5 % 0.0-5.0 NUCLEATED RBC % (test code=NRBC%) 0.0 % 0-0 NEUTROPHIL # (test code=NT#) 4.93 K/mm3 1.8-7.7 IMMATURE GRANULOCYTE # (test code=IG#) 0.05 x10 3/uL 0-0.03 LYMPHOCYTE # (test code=LY#) 4.16 K/mm3 1.0-5.0 MONOCYTE # (test code=MO#) 0.61 K/mm3 0-0.8 EOSINOPHIL # (test code=EO#) 0.69 K/mm3 0.0-0.5 BASOPHIL # (test code=BA#) 0.05 K/mm3 0.0-0.2 NUCLEATED RBC # (test code=NRBC#) 0.00 K/mm3 0.0-0.1 MANUAL DIFF REQUIRED (test code=MDIFF) YES STAIN ACCEPTABILITY (test code=STN ACCEPTABLE) TOTAL CELLS COUNTED (test code=TCC) #CELLS SEGMENTED NEUTROPHILS (test code=SEG) % 39-69 LYMPHOCYTE (test code=LYMPH) % 25-55 MONOCYTE (test code=MON) % 0-10 MORPHOLOGY COMMENT (test code=MOC) PLATELET ESTIMATE (test code=PLTEST) PLATELET MORPHOLOGY (test code=PLTMORPH) CBC W/MANUAL [id number] 15:55:00* Test Item Value Reference Range Comments WHITE BLOOD CELL (test code=WBC) 10.5 K/mm3 4.5-12.5 RED BLOOD CELL (test code=RBC) 5.17 mill/mm3 3.7-5.2 HEMOGLOBIN (test code=HGB) 13.8 gram/dL 11.5-15.5 HEMATOCRIT (test code=HCT) 44.0 % 36.0-46.0 MEAN CELL VOLUME (test code=MCV) 85.1 fL 80-98 MEAN CELL HGB (test code=MCH) 26.7 picogram 27.0-33.0 MEAN CELL HGB CONCETRATION (test code=MCHC) 31.4 gram/dL 33.0-36.0 RED CELL DISTRIBUTION WIDTH (test code=RDW) 12.3 % 11.6-16.2 RED CELL DISTRIBUTION WIDTH SD (test code=RDW-SD) 37.6 fL 37.0-51.0 PLATELET COUNT (test code=PLT) 362 K/mm3 150-450 MEAN PLATELET VOLUME (test code=MPV) 8.7 fL 6.7-11.0 IMMATURE GRANULOCYTE % (test code=IG%) 0.5 % 0.0-5.0 NUCLEATED RBC % (test code=NRBC%) 0.0 % 0-0 NEUTROPHIL # (test code=NT#) 4.93 K/mm3 1.8-7.7 IMMATURE GRANULOCYTE # (test code=IG#) 0.05 x10 3/uL 0-0.03 LYMPHOCYTE # (test code=LY#) 4.16 K/mm3 1.0-5.0 MONOCYTE # (test code=MO#) 0.61 K/mm3 0-0.8 EOSINOPHIL # (test code=EO#) 0.69 K/mm3 0.0-0.5 BASOPHIL # (test code=BA#) 0.05 K/mm3 0.0-0.2 NUCLEATED RBC # (test code=NRBC#) 0.00 K/mm3 0.0-0.1 MANUAL DIFF REQUIRED (test code=MDIFF) YES STAIN ACCEPTABILITY (test code=STN ACCEPTABLE) TOTAL CELLS COUNTED (test code=TCC) #CELLS SEGMENTED NEUTROPHILS (test code=SEG) % 39-69 LYMPHOCYTE (test code=LYMPH) % 25-55 MONOCYTE (test code=MON) % 0-10 EOSINOPHIL (test code=EOS) % 0.0-5.0 CABOT RINGS (test code=CAB) MORPHOLOGY COMMENT (test code=MOC) PLATELET ESTIMATE (test code=PLTEST) PLATELET MORPHOLOGY (test code=PLTMORPH) CBC W/MANUAL [id number] 15:55:00* Test Item Value Reference Range Comments WHITE BLOOD CELL (test code=WBC) 10.5 K/mm3 4.5-12.5 RED BLOOD CELL (test code=RBC) 5.17 mill/mm3 3.7-5.2 HEMOGLOBIN (test code=HGB) 13.8 gram/dL 11.5-15.5 HEMATOCRIT (test code=HCT) 44.0 % 36.0-46.0 MEAN CELL VOLUME (test code=MCV) 85.1 fL 80-98 MEAN CELL HGB (test code=MCH) 26.7 picogram 27.0-33.0 MEAN CELL HGB CONCETRATION (test code=MCHC) 31.4 gram/dL 33.0-36.0 RED CELL DISTRIBUTION WIDTH (test code=RDW) 12.3 % 11.6-16.2 RED CELL DISTRIBUTION WIDTH SD (test code=RDW-SD) 37.6 fL 37.0-51.0 PLATELET COUNT (test code=PLT) 362 K/mm3 150-450 MEAN PLATELET VOLUME (test code=MPV) 8.7 fL 6.7-11.0 IMMATURE GRANULOCYTE % (test code=IG%) 0.5 % 0.0-5.0 NUCLEATED RBC % (test code=NRBC%) 0.0 % 0-0 NEUTROPHIL # (test code=NT#) 4.93 K/mm3 1.8-7.7 IMMATURE GRANULOCYTE # (test code=IG#) 0.05 x10 3/uL 0-0.03 LYMPHOCYTE # (test code=LY#) 4.16 K/mm3 1.0-5.0 MONOCYTE # (test code=MO#) 0.61 K/mm3 0-0.8 EOSINOPHIL # (test code=EO#) 0.69 K/mm3 0.0-0.5 BASOPHIL # (test code=BA#) 0.05 K/mm3 0.0-0.2 NUCLEATED RBC # (test code=NRBC#) 0.00 K/mm3 0.0-0.1 MANUAL DIFF REQUIRED (test code=MDIFF) YES STAIN ACCEPTABILITY (test code=STN ACCEPTABLE) TOTAL CELLS COUNTED (test code=TCC) #CELLS SEGMENTED NEUTROPHILS (test code=SEG) % 39-69 LYMPHOCYTE (test code=LYMPH) % 25-55 MONOCYTE (test code=MON) % 0-10 EOSINOPHIL (test code=EOS) % 0.0-5.0 CABOT RINGS (test code=CAB) MORPHOLOGY COMMENT (test code=MOC) PLATELET ESTIMATE (test code=PLTEST) PLATELET MORPHOLOGY (test code=PLTMORPH) CBC W/MANUAL [id number] 15:55:00* Test Item Value Reference Range Comments WHITE BLOOD CELL (test code=WBC) 10.5 K/mm3 4.5-12.5 RED BLOOD CELL (test code=RBC) 5.17 mill/mm3 3.7-5.2 HEMOGLOBIN (test code=HGB) 13.8 gram/dL 11.5-15.5 HEMATOCRIT (test code=HCT) 44.0 % 36.0-46.0 MEAN CELL VOLUME (test code=MCV) 85.1 fL 80-98 MEAN CELL HGB (test code=MCH) 26.7 picogram 27.0-33.0 MEAN CELL HGB CONCETRATION (test code=MCHC) 31.4 gram/dL 33.0-36.0 RED CELL DISTRIBUTION WIDTH (test code=RDW) 12.3 % 11.6-16.2 RED CELL DISTRIBUTION WIDTH SD (test code=RDW-SD) 37.6 fL 37.0-51.0 PLATELET COUNT (test code=PLT) 362 K/mm3 150-450 MEAN PLATELET VOLUME (test code=MPV) 8.7 fL 6.7-11.0 IMMATURE GRANULOCYTE % (test code=IG%) 0.5 % 0.0-5.0 NUCLEATED RBC % (test code=NRBC%) 0.0 % 0-0 NEUTROPHIL # (test code=NT#) 4.93 K/mm3 1.8-7.7 IMMATURE GRANULOCYTE # (test code=IG#) 0.05 x10 3/uL 0-0.03 LYMPHOCYTE # (test code=LY#) 4.16 K/mm3 1.0-5.0 MONOCYTE # (test code=MO#) 0.61 K/mm3 0-0.8 EOSINOPHIL # (test code=EO#) 0.69 K/mm3 0.0-0.5 BASOPHIL # (test code=BA#) 0.05 K/mm3 0.0-0.2 NUCLEATED RBC # (test code=NRBC#) 0.00 K/mm3 0.0-0.1 MANUAL DIFF REQUIRED (test code=MDIFF) YES STAIN ACCEPTABILITY (test code=STN ACCEPTABLE) TOTAL CELLS COUNTED (test code=TCC) #CELLS SEGMENTED NEUTROPHILS (test code=SEG) % 39-69 LYMPHOCYTE (test code=LYMPH) % 25-55 MONOCYTE (test code=MON) % 0-10 EOSINOPHIL (test code=EOS) % 0.0-5.0 MORPHOLOGY COMMENT (test code=MOC) PLATELET ESTIMATE (test code=PLTEST) PLATELET MORPHOLOGY (test code=PLTMORPH) CBC W/MANUAL [id number] 15:55:00* Test Item Value Reference Range Comments WHITE BLOOD CELL (test code=WBC) 10.5 K/mm3 4.5-12.5 RED BLOOD CELL (test code=RBC) 5.17 mill/mm3 3.7-5.2 HEMOGLOBIN (test code=HGB) 13.8 gram/dL 11.5-15.5 HEMATOCRIT (test code=HCT) 44.0 % 36.0-46.0 MEAN CELL VOLUME (test code=MCV) 85.1 fL 80-98 MEAN CELL HGB (test code=MCH) 26.7 picogram 27.0-33.0 MEAN CELL HGB CONCETRATION (test code=MCHC) 31.4 gram/dL 33.0-36.0 RED CELL DISTRIBUTION WIDTH (test code=RDW) 12.3 % 11.6-16.2 RED CELL DISTRIBUTION WIDTH SD (test code=RDW-SD) 37.6 fL 37.0-51.0 PLATELET COUNT (test code=PLT) 362 K/mm3 150-450 MEAN PLATELET VOLUME (test code=MPV) 8.7 fL 6.7-11.0 IMMATURE GRANULOCYTE % (test code=IG%) 0.5 % 0.0-5.0 NUCLEATED RBC % (test code=NRBC%) 0.0 % 0-0 NEUTROPHIL # (test code=NT#) 4.93 K/mm3 1.8-7.7 IMMATURE GRANULOCYTE # (test code=IG#) 0.05 x10 3/uL 0-0.03 LYMPHOCYTE # (test code=LY#) 4.16 K/mm3 1.0-5.0 MONOCYTE # (test code=MO#) 0.61 K/mm3 0-0.8 EOSINOPHIL # (test code=EO#) 0.69 K/mm3 0.0-0.5 BASOPHIL # (test code=BA#) 0.05 K/mm3 0.0-0.2 NUCLEATED RBC # (test code=NRBC#) 0.00 K/mm3 0.0-0.1 MANUAL DIFF REQUIRED (test code=MDIFF) YES STAIN ACCEPTABILITY (test code=STN ACCEPTABLE) TOTAL CELLS COUNTED (test code=TCC) #CELLS SEGMENTED NEUTROPHILS (test code=SEG) % 39-69 LYMPHOCYTE (test code=LYMPH) % 25-55 MONOCYTE (test code=MON) % 0-10 EOSINOPHIL (test code=EOS) % 0.0-5.0 CABOT RINGS (test code=CAB) MORPHOLOGY COMMENT (test code=MOC) PLATELET ESTIMATE (test code=PLTEST) PLATELET MORPHOLOGY (test code=PLTMORPH) CBC W/AUTO [id number] 15:54:00* Test Item Value Reference Range Comments WHITE BLOOD CELL (test code=WBC) K/mm3 4.5-12.5 RED BLOOD CELL (test code=RBC) mill/mm3 3.7-5.2 HEMOGLOBIN (test code=HGB) 13.8 gram/dL 11.5-15.5 HEMATOCRIT (test code=HCT) 44.0 % 36.0-46.0 MEAN CELL VOLUME (test code=MCV) fL 80-98 MEAN CELL HGB (test code=MCH) picogram 27.0-33.0 MEAN CELL HGB CONCETRATION (test code=MCHC) gram/dL 33.0-36.0 RED CELL DISTRIBUTION WIDTH (test code=RDW) % 11.6-16.2 RED CELL DISTRIBUTION WIDTH SD (test code=RDW-SD) fL 37.0-51.0 PLATELET COUNT (test code=PLT) K/mm3 150-450 MEAN PLATELET VOLUME (test code=MPV) fL 6.7-11.0 NEUTROPHIL % (test code=NT%) % 39.0-69.0 IMMATURE GRANULOCYTE % (test code=IG%) % 0.0-5.0 LYMPHOCYTE % (test code=LY%) % 25.0-55.0 MONOCYTE % (test code=MO%) % 0.0-10.0 EOSINOPHIL % (test code=EO%) % 0.0-5.0 BASOPHIL % (test code=BA%) % 0.0-1.0 NEUTROPHIL # (test code=NT#) K/mm3 1.8-7.7 LYMPHOCYTE # (test code=LY#) K/mm3 1.0-5.0 MONOCYTE # (test code=MO#) K/mm3 0-0.8 EOSINOPHIL # (test code=EO#) K/mm3 0.0-0.5 BASOPHIL # (test code=BA#) K/mm3 0.0-0.2 - US ABDOMEN [id number] 15:44:00 Name: ALEM RAWLS [facility] : 1990 Age/S: 28 / F [address] [facility] Unit #: [id number] Loc: [place] [address] Phys: Kristen Allen Acct: [id number] Dis Date: Status: REG ER PHONE #: [phone] Exam Date: 01/16/2019 0935 FAX #: [phone] Reason: RUQ pain EXAMS: CPT CODE: [id number] US ABDOMEN LTD 74441 REASON FOR EXAM: RUQ pain EXAM ORDER DATE: 01/16/2019 1:59 PM Attending MAngelia.: NIRMALA Riggins PROCEDURE: - US ABDOMEN LTD FINDINGS: The liver is mildly echogenic. There is no evidence of focal mass identified. The pancreas is within normal limits. The right kidney measures 13.5 x 5.9 cm. There is no evidence of hydronephrosis. There is no evidence of nephrolithiasis. There is no evidence of renal mass. The gallbladder is unremarkable without evidence of gall stone. The common bile duct measures 0.4 cm. There is no evidence of ascites. The aorta and IVC are within normal limits. The portal vein is patent with hepatopetal flow IMPRESSION: Fatty liver. No evidence of gallstone at 1548 Reported and signed by: Amarjit Michaels M.D. CC: Technologist: AAKASH ALCANTARA RT(R),RDMS Trnokb Date/Time: 01/17/20 (9186) t.SDR.VTL Orig Print D/T: S: 01/16/2019 (6799) Probe: PAGE 1 Signed Report - XR CHEST 2 [id number] 14:59:00 [place]: St: REG Name: ALEM PENNINGTON [facility] : [birth year] Age/S: 28/F [address] [facility] Unit #: [id number] Loc: [place] [address] Phys: Kristen Allen Acct: [id number] Dis Date: Status: REG ER PHONE #: [phone] Exam Date: 01/16/2019 4037 FAX #: [phone] Reason: cough, CP EXAMS: CPT CODE: [id number] XR CHEST 2 V 68306 REASON FOR EXAM: cough, CP Exam Order Date: 01/16/2019 1:59 PM Ordering Janet: NIRMALA Riggins PROCEDURE: - XR CHEST 2 V COMPARISON: FINDINGS: PA and lateral views of the chest show clear lungs without evidence of consolidation. No evidence of effusion. The heart size is within normal limits. Pulmonary vasculatures are unremarkable. The osseous structures are grossly intact. Stable appearance of the calcif ied granuloma in the left hilum IMPRESSION: No active disease. at 6279 Reported and signed by: Amarjit Michaels M.D. CC: Technologist: MASSIMO CLARK) Trnscrd Date/Time/By: 01/16/2019 (145 9) : By: Teresa Orig Print D/T: S: 01/16/2019 (1621) PAGE 1 Signed Report
--- NOTE | 2019-03-27 19:05 | Diagnostic Imaging Report ---
EXAMINATION: CHEST 2 VIEWS INDICATION: ^COUGH, CP COMPARISON: None FINDINGS: PA and lateral views TUBES and LINES: None. LUNGS: Lungs are well inflated. Lungs are clear. There is no evidence of pneumonia or pulmonary edema. PLEURA: No pleural effusion or pneumothorax. HEART AND MEDIASTINUM: The cardiomediastinal silhouette is unremarkable. BONES AND SOFT TISSUES: No acute osseous lesion. Soft tissues are unremarkable. UPPER ABDOMEN: No free air under the diaphragm. IMPRESSION: No acute thoracic abnormality. Signed by: Dr. Jarrod King M.D. on 03/27/2019 7:02 PM
[2019-03-27] MEDS ORDERED: MECLIZINE HCL12.5 MG PO (20:09)
[2019-03-27] MEDS ORDERED: AZITHROMYCIN250 MG PO (20:09)
[2019-03-27 20:10] VITALS: BP 130/75
== END 2019-03-27 20:20 | disposition home or self-care (01) ==
LOC: ER 16:35
DX: R05 Cough (principal); H92.03 Otalgia, bilateral; J00 Acute nasopharyngitis [common cold]; I10 Essential (primary) hypertension; E11.9 Type 2 diabetes mellitus without complications; E66.9 Obesity, unspecified
CPT/HCPCS: 71046; 93005; 99283

== ENCOUNTER 2021-03-18 20:11 | Emergency (ER) | payer OTHER ==
[~2021-03-18] VITALS: Ht 167.6 cm; Wt 122.5 kg
[~2021-03-18 20:11] MED LIST changes: +AZITHROMYCIN250 MG PO; +MECLIZINE HCL12.5 MG PO
[2021-03-18] MEDS ORDERED: MORPHINE SULFATE INJ 4 MG/ML INJ 1ML IV STA (20:44)
[2021-03-18] MEDS ORDERED: ONDANSETRON HCL INJ 2MG/ML 2ML 2 MG/ML VIAL IV STA (20:44)
[2021-03-18] MEDS ORDERED: SODIUM CHLORIDE 0.9% 1000ML 1,000 ML IV ONE (20:45)
[2021-03-18 20:48] LABS: BASOPHILS # (AUTO) 0.1 (0.0-0.1); BASOPHILS % 0.5 % (0.0-1.0); EOSINOPHILS % 7.1 % (0.0-6.0); HEMOGLOBIN 14.7 g/dL (12.0-16.0); LYMPHOCYTES # (AUTO) 4.6 (1.0-3.2); LYMPHOCYTES % 31.8 % (18.0-39.1); MEAN CORPUSCULAR HEMOGLOBIN 27.9 pg (28-32); MEAN CORPUSCULAR HGB CONC 32.7 g/dL (31-35); MEAN CORPUSCULAR VOLUME 85.4 fL (81-99); MONOCYTES # (AUTO) 0.7 (0.2-0.8); MONOCYTES % 4.5 % (4.4-11.3); NEUTROPHILS # (AUTO) 8.1 (2.1-6.9); NEUTROPHILS % 55.7 % (38.7-80.0); PLATELET COUNT 409 x10e3/uL (140-360); RED BLOOD COUNT 5.27 x10e6/uL (3.6-5.1); RED CELL DISTRIBUTION WIDTH 12.5 % (11.7-14.4)
[2021-03-18 21:05] LABS: ALBUMIN 3.7 g/dL (3.5-5.0); ALBUMIN/GLOBULIN RATIO 0.9 (0.8-2.0); ANION GAP 17.5 mmol/L (8-16); CALCIUM 9.1 mg/dL (8.4-10.2); CREATININE, SERUM 0.71 mg/dL (0.57-1.11); POTASSIUM 3.5 mmol/L (3.5-5.1)
[2021-03-18 21:11] LABS: CLARITY,URINE CLEAR (CLEAR); COLOR,URINE YELLOW (YELLOW); KETONES,URINE NEGATIVE (NEGATIVE); LEUKOCYTE ESTERASE ,URINE NEGATIVE (NEGATIVE); NITRITE,URINE NEGATIVE (NEGATIVE); PROTEIN,URINE DIPSTICK NEGATIVE (NEGATIVE); URINE UROBILINOGEN 0.2 mg/dL (0.2 - 1)
[2021-03-18] MEDS ORDERED: CEFEPIME 1 GM in SODIUM CHLORIDE 0.9% 50ML 50 ML IV ONE (21:15)
[2021-03-18 21:18] LABS: WBC,URINE (MAN) 0-5 /HPF (0-5)
[2021-03-18 21:19] LABS: BACTERIA,URINE MODERATE /HPF; EPITHELIAL CELLS,URINE MANY /LPF
[2021-03-18] MEDS ORDERED: IOPAMIDOL 370 MG/ML 200 ML INFUS..BTL INJ ONE (22:00)
[2021-03-18] MEDS ORDERED: SODIUM CHLORIDE 0.9% 50ML 50 ML ONE (22:00)
[2021-03-18 22:37] VITALS: BP 144/100
== END 2021-03-18 22:44 | disposition home or self-care (01) ==
LOC: ER 21:02
DX: R10.9 Unspecified abdominal pain (principal); R11.0 Nausea; R19.7 Diarrhea, unspecified
CPT/HCPCS: 36415; 74177; 80053; 81001; 81025; 83605; 85025; 87040; 99284; J0692; J2270; J2405; J7030; Q9967

== ENCOUNTER 2021-09-22 18:50 | Emergency (ER) | payer OTHER ==
[~2021-09-22] VITALS: Ht 167.6 cm; Wt 122.5 kg
[2021-09-22] MEDS ORDERED: SODIUM CHLORIDE 0.9% 1000ML 1,000 ML IV STA ×2 (18:54→21:26)
[2021-09-22] MEDS ORDERED: ONDANSETRON HCL INJ 2MG/ML 2ML 2 MG/ML VIAL IV ONE (19:15)
[2021-09-22 20:24] LABS: BASOPHILS # (AUTO) 0.1 (0.0-0.1); BASOPHILS % 0.3 % (0.0-1.0); EOSINOPHILS # (AUTO) 0.4 (0.0-0.4); EOSINOPHILS % 1.7 % (0.0-6.0); HEMATOCRIT 49.9 % (34.2-44.1); LYMPHOCYTES % 12.9 % (18.0-39.1); MEAN CORPUSCULAR HEMOGLOBIN 27.4 pg (28-32); MEAN CORPUSCULAR HGB CONC 32.1 g/dL (31-35); MEAN CORPUSCULAR VOLUME 85.3 fL (81-99); MONOCYTES # (AUTO) 0.9 (0.2-0.8); NEUTROPHILS # (AUTO) 18.8 (2.1-6.9); NEUTROPHILS % 80.4 % (38.7-80.0); PLATELET COUNT 436 x10e3/uL (140-360); RED BLOOD COUNT 5.85 x10e6/uL (3.6-5.1); RED CELL DISTRIBUTION WIDTH 13.4 % (11.7-14.4)
[2021-09-22 20:42] LABS: ALBUMIN 3.7 g/dL (3.5-5.0); ANION GAP 17.5 mmol/L (8-16); CREATININE, SERUM 0.71 mg/dL (0.57-1.11); POTASSIUM 4.5 mmol/L (3.5-5.1)
[2021-09-22 20:50] LABS: CALCIUM 10.3 mg/dL (8.4-10.2)
[2021-09-22] MEDS ORDERED: Morphine 4mg Syringe 4 MG/ML INJ ONE (20:56)
[2021-09-22 21:13] LABS: AMPHETAMINES SCREEN,URINE NEGATIVE (NEGATIVE); BENZODIAZEPINES SCREEN,URINE NEGATIVE (NEGATIVE); CLARITY,URINE CLEAR (CLEAR); COLOR,URINE YELLOW (YELLOW); KETONES,URINE 2+ (NEGATIVE); LEUKOCYTE ESTERASE ,URINE NEGATIVE (NEGATIVE); NITRITE,URINE NEGATIVE (NEGATIVE); PHENCYCLIDINE SCREEN,URINE NEGATIVE (NEGATIVE); PROTEIN,URINE DIPSTICK NEGATIVE (NEGATIVE); URINE UROBILINOGEN 0.2 mg/dL (0.2 - 1)
[2021-09-22 21:20] LABS: BACTERIA,URINE FEW /HPF; EPITHELIAL CELLS,URINE MODERATE /LPF
[2021-09-22] MEDS ORDERED: Morphine 4mg Syringe 4 MG/ML INJ IV ONE (21:30)
[2021-09-22] MEDS ORDERED: PIPERACILLIN/TAZOBACTAM 3.375 GM in SODIUM CHLORIDE 0.9% 50ML 50 ML IV SCH (22:00)
[2021-09-22] MEDS ORDERED: IOPAMIDOL 370 MG/ML 200 ML INFUS..BTL INJ ONE (22:41)
[2021-09-22] MEDS ORDERED: SODIUM CHLORIDE 0.9% 50ML 50 ML ONE (22:41)
[2021-09-23] MEDS ORDERED: SODIUM CHLORIDE 0.9% 1000ML 1,000 ML IV STA (00:14)
[2021-09-23] MEDS ORDERED: SODIUM CHLORIDE 0.9% 1000ML 1,000 ML ONE (00:26)
[2021-09-23] MEDS ORDERED: KETOROLAC TROMETHAMINE 30 MG/ML VIAL ONE (00:33)
[2021-09-23 01:39] LABS: BASOPHILS # (AUTO) 0.1 (0.0-0.1); BASOPHILS % 0.4 % (0.0-1.0); EOSINOPHILS # (AUTO) 0.4 (0.0-0.4); EOSINOPHILS % 2.3 % (0.0-6.0); HEMATOCRIT 41.3 % (34.2-44.1); HEMOGLOBIN 13.2 g/dL (12.0-16.0); LYMPHOCYTES # (AUTO) 2.7 (1.0-3.2); MEAN CORPUSCULAR VOLUME 84.6 fL (81-99); MONOCYTES # (AUTO) 0.4 (0.2-0.8); MONOCYTES % 2.3 % (4.4-11.3); NEUTROPHILS # (AUTO) 12.4 (2.1-6.9); NEUTROPHILS % 77.2 % (38.7-80.0); RED BLOOD COUNT 4.88 x10e6/uL (3.6-5.1); RED CELL DISTRIBUTION WIDTH 13.3 % (11.7-14.4)
[2021-09-23 01:40] LABS: PLATELET COUNT 358 x10e3/uL (140-360)
[2021-09-23] MEDS ORDERED: VENTOLIN HFA18 GM INH (01:47)
[2021-09-23] MEDS ORDERED: ULTRAM 50MG50 MG PO (01:47)
[2021-09-23] MEDS ORDERED: AZITHROMYCIN250 MG PO (01:47)
[2021-09-23 01:54] VITALS: BP 135/86
[2021-09-23] MEDS ORDERED: KETOROLAC TROMETHAMINE 30 MG/ML VIAL IV STA (01:57)
== END 2021-09-23 01:56 | disposition home or self-care (01) ==
LOC: ER 18:51
DX: R10.9 Unspecified abdominal pain (principal); R11.2 Nausea with vomiting, unspecified; I10 Essential (primary) hypertension; E11.9 Type 2 diabetes mellitus without complications; Z88.8 Allergy status to other drugs, medicaments and biological substances; Z91.018 Allergy to other foods; J30.81 Allergic rhinitis due to animal (cat) (dog) hair and dander; Z79.84 Long term (current) use of oral hypoglycemic drugs
CPT/HCPCS: 36415; 74177; 80053; 80307; 81001; 81025; 83605; 83690; 85025; 87040; 99284; J1885; J2270; J2405; J2543; J7030 ×2; Q9967; U0002

== ENCOUNTER 2022-06-05 21:15 | Emergency (ER) | payer OTHER ==
[~2022-06-05] VITALS: Ht 167.6 cm; Wt 122.5 kg
[~2022-06-05 21:15] MED LIST changes: +ULTRAM 50MG50 MG PO; +VENTOLIN HFA18 GM INH
[2022-06-05] MEDS ORDERED: ONDANSETRON HCL INJ 2MG/ML 2ML 2 MG/ML VIAL IV STA (22:30)
[2022-06-05] MEDS ORDERED: Morphine 4mg INJECTION 4 MG/ML INJ IV STA (22:30)
[2022-06-05] MEDS ORDERED: ALBUTEROL/IPRATROPIUM 3 ML NEB NEB STA (22:30)
[2022-06-05 22:37] LABS: BASOPHILS % 0.4 % (0.0-1.0); EOSINOPHILS # (AUTO) 0.5 (0.0-0.4); EOSINOPHILS % 4.8 % (0.0-6.0); HEMATOCRIT 45.6 % (34.2-44.1); HEMOGLOBIN 14.5 g/dL (12.0-16.0); LYMPHOCYTES # (AUTO) 3.2 (1.0-3.2); LYMPHOCYTES % 30.9 % (18.0-39.1); MEAN CORPUSCULAR HEMOGLOBIN 27.7 pg (28-32); MEAN CORPUSCULAR HGB CONC 31.8 g/dL (31-35); MEAN CORPUSCULAR VOLUME 87.2 fL (81-99); MONOCYTES # (AUTO) 0.5 (0.2-0.8); MONOCYTES % 5.2 % (4.4-11.3); NEUTROPHILS # (AUTO) 6.1 (2.1-6.9); NEUTROPHILS % 58.4 % (38.7-80.0); PLATELET COUNT 431 x10e3/uL (140-360); RED BLOOD COUNT 5.23 x10e6/uL (3.6-5.1); RED CELL DISTRIBUTION WIDTH 13.2 % (11.7-14.4)
[2022-06-05] MEDS ORDERED: Morphine 4mg INJECTION 4 MG/ML INJ ONE (22:46)
[2022-06-05] MEDS ORDERED: ONDANSETRON HCL INJ 2MG/ML 2ML 2 MG/ML VIAL ONE (22:46)
[2022-06-05 22:58] LABS: ALANINE AMINOTRANSFERASE 27 IU/L (0-55); ALBUMIN 3.9 g/dL (3.5-5.0); ALKALINE PHOSPHATASE 71 IU/L (40-150); ANION GAP 22.1 mmol/L (8-16); BLOOD UREA NITROGEN 9 mg/dL (7-26); BUN/CREATININE RATIO 12 (6-25); CARBON DIOXIDE 17 mmol/L (22-29); CHLORIDE 105 mmol/L (98-107); CREATINE KINASE 39 IU/L (29-168); CREATININE, SERUM 0.76 mg/dL (0.57-1.11); GLUCOSE 243 mg/dL (74-118); POTASSIUM 4.1 mmol/L (3.5-5.1); SODIUM 140 mmol/L (136-145)
[2022-06-06] MEDS ORDERED: ACETAMINOPHEN 325 MG TAB PO ONE
[2022-06-06] MEDS ORDERED: KETOROLAC TROMETHAMINE 30 MG/ML VIAL IV STA (00:53)
[2022-06-06] MEDS ORDERED: Morphine 4mg INJECTION 4 MG/ML INJ IV ONE (01:15)
[2022-06-06] MEDS ORDERED: AZITHROMYCIN250 MG PO (02:20)
[2022-06-06] MEDS ORDERED: VENTOLIN HFA18 GM INH (02:20)
[2022-06-06] MEDS ORDERED: PREDNISONE20 MG PO (02:20)
[2022-06-06 02:41] VITALS: BP 137/86
[2022-06-06] MEDS ORDERED: IOPAMIDOL 370 MG/ML 100 ML INFUS..BTL INJ ONE (05:42)
[2022-06-06] MEDS ORDERED: ULTRAM 50MG50 MG PO (18:56)
== END 2022-06-06 03:00 | disposition home or self-care (01) ==
LOC: ER 22:00
DX: R50.9 Fever, unspecified (principal); U07.1 COVID-19; R05.9 Cough, unspecified; E11.65 Type 2 diabetes mellitus with hyperglycemia; I10 Essential (primary) hypertension
CPT/HCPCS: 36415; 71260; 80053; 81025; 82550; 82553; 84484; 85025; 99284; J1885; J2270 ×2; J2405; Q9967; U0002

== ENCOUNTER 2022-06-06 16:43 | Emergency (ER) | payer OTHER ==
[~2022-06-06] VITALS: Ht 167.6 cm; Wt 122.5 kg
[~2022-06-06 16:43] MED LIST changes: +PREDNISONE20 MG PO
[2022-06-06] MEDS ORDERED: KETOROLAC TROMETHAMINE 30 MG/ML VIAL IV STA (17:20)
[2022-06-06] MEDS ORDERED: LORAZEPAM INJ 2 MG/ML VIAL IV STA (17:28)
[2022-06-06] MEDS ORDERED: LORAZEPAM 1 MG TAB PO STA (18:11)
[2022-06-06 18:15] LABS: BASOPHILS % 0.3 % (0.0-1.0); EOSINOPHILS % 0.1 % (0.0-6.0); HEMATOCRIT 44.5 % (34.2-44.1); HEMOGLOBIN 14.6 g/dL (12.0-16.0); LYMPHOCYTES # (AUTO) 0.9 (1.0-3.2); LYMPHOCYTES % 6.4 % (18.0-39.1); MEAN CORPUSCULAR HEMOGLOBIN 27.8 pg (28-32); MEAN CORPUSCULAR HGB CONC 32.8 g/dL (31-35); MEAN CORPUSCULAR VOLUME 84.6 fL (81-99); MONOCYTES # (AUTO) 0.1 (0.2-0.8); MONOCYTES % 0.7 % (4.4-11.3); NEUTROPHILS # (AUTO) 12.5 (2.1-6.9); NEUTROPHILS % 92.1 % (38.7-80.0); PLATELET COUNT 403 x10e3/uL (140-360); RED BLOOD COUNT 5.26 x10e6/uL (3.6-5.1); RED CELL DISTRIBUTION WIDTH 13.3 % (11.7-14.4)
[2022-06-06 18:24] LABS: AMPHETAMINES SCREEN,URINE NEGATIVE (NEGATIVE); BENZODIAZEPINES SCREEN,URINE NEGATIVE (NEGATIVE); PHENCYCLIDINE SCREEN,URINE NEGATIVE (NEGATIVE)
[2022-06-06 18:27] LABS: ALANINE AMINOTRANSFERASE 31 IU/L (0-55); ALBUMIN 3.9 g/dL (3.5-5.0); ALBUMIN/GLOBULIN RATIO 0.9 (0.8-2.0); ALKALINE PHOSPHATASE 72 IU/L (40-150); ANION GAP 22.7 mmol/L (8-16); BLOOD UREA NITROGEN 11 mg/dL (7-26); BUN/CREATININE RATIO 15 (6-25); CALCIUM 9.3 mg/dL (8.4-10.2); CARBON DIOXIDE 17 mmol/L (22-29); CHLORIDE 105 mmol/L (98-107); CREATINE KINASE 42 IU/L (29-168); CREATININE, SERUM 0.74 mg/dL (0.57-1.11); GLUCOSE 255 mg/dL (74-118); POTASSIUM 4.7 mmol/L (3.5-5.1); SODIUM 140 mmol/L (136-145)
[2022-06-06] MEDS ORDERED: ULTRAM 50MG50 MG PO (18:56)
== END 2022-06-06 19:02 | disposition home or self-care (01) ==
LOC: ER 17:07
DX: R05.9 Cough, unspecified (principal); U07.1 COVID-19; R07.89 Other chest pain; E11.65 Type 2 diabetes mellitus with hyperglycemia; I10 Essential (primary) hypertension
CPT/HCPCS: 36415; 71045; 80053; 80307; 82550; 82553; 83690; 83880; 84484; 85025; 93005; 99284; J1885

== ENCOUNTER 2022-12-20 21:07 | Emergency (ER) | payer OTHER ==
[~2022-12-20] VITALS: Ht 167.6 cm; Wt 122.5 kg
[2022-12-20] MEDS ORDERED: ACETAMINOPHEN 325 MG TAB ONE (21:49)
[2022-12-20] MEDS ORDERED: IBUPROFEN 600 MG TAB PO STA (21:50)
[2022-12-20] MEDS ORDERED: ACETAMINOPHEN 325 MG TAB PO ONE (22:00)
[2022-12-20 22:25] LABS: CLARITY,URINE CLEAR (CLEAR); COLOR,URINE YELLOW (YELLOW); KETONES,URINE NEGATIVE (NEGATIVE); LEUKOCYTE ESTERASE ,URINE NEGATIVE (NEGATIVE); NITRITE,URINE NEGATIVE (NEGATIVE); PROTEIN,URINE DIPSTICK NEGATIVE (NEGATIVE); URINE UROBILINOGEN 0.2 mg/dL (0.2 - 1)
[2022-12-20 22:33] LABS: BACTERIA,URINE RARE /HPF; EPITHELIAL CELLS,URINE FEW /LPF; RBC,URINE 0-5 /HPF (0-5); WBC,URINE (MAN) 0-5 /HPF (0-5)
[2022-12-20] MEDS ORDERED: PENICILLIN G BENZATHINE LA 1.2 MU TBX IM STA (23:43)
[2022-12-20] MEDS ORDERED: PENICILLIN G BENZATHINE LA 1.2 MU TBX ONE (23:45)
== END 2022-12-21 00:15 | disposition home or self-care (01) ==
LOC: ER 21:31
DX: R50.9 Fever, unspecified (principal); J02.0 Streptococcal pharyngitis; I10 Essential (primary) hypertension; E11.9 Type 2 diabetes mellitus without complications; Z20.822 Contact with and (suspected) exposure to COVID-19
CPT/HCPCS: 71046; 81001; 81025; 83518; 99283; J0561; U0002

== ENCOUNTER 2023-01-21 08:56 | Emergency (ER) | payer OTHER ==
[~2023-01-21] VITALS: Ht 167.6 cm; Wt 122.5 kg
[2023-01-21] MEDS ORDERED: KETOROLAC TROMETHAMINE 30 MG/ML VIAL IV STA (09:07)
[2023-01-21] MEDS ORDERED: SODIUM CHLORIDE 0.9% 1000ML 1,000 ML IV STA (09:07)
[2023-01-21 09:23] LABS: BASOPHILS # (AUTO) 0.1 (0.0-0.1); BASOPHILS % 0.8 % (0.0-1.0); EOSINOPHILS # (AUTO) 0.7 (0.0-0.4); EOSINOPHILS % 5.8 % (0.0-6.0); HEMATOCRIT 44.8 % (34.2-44.1); HEMOGLOBIN 14.4 g/dL (12.0-16.0); LYMPHOCYTES % 35.5 % (18.0-39.1); MEAN CORPUSCULAR HEMOGLOBIN 27.3 pg (28-32); MEAN CORPUSCULAR HGB CONC 32.1 g/dL (31-35); MONOCYTES # (AUTO) 0.7 (0.2-0.8); MONOCYTES % 6.3 % (4.4-11.3); NEUTROPHILS # (AUTO) 5.8 (2.1-6.9); NEUTROPHILS % 51.3 % (38.7-80.0); PLATELET COUNT 352 x10e3/uL (140-360); RED BLOOD COUNT 5.27 x10e6/uL (3.6-5.1); RED CELL DISTRIBUTION WIDTH 13.1 % (11.7-14.4)
[2023-01-21 09:56] LABS: ALANINE AMINOTRANSFERASE 27 IU/L (0-55); ALBUMIN 3.9 g/dL (3.5-5.0); ALKALINE PHOSPHATASE 70 IU/L (40-150); ANION GAP 13.1 mmol/L (8-16); BLOOD UREA NITROGEN 12 mg/dL (7-26); BUN/CREATININE RATIO 18 (6-25); CALCIUM 9.7 mg/dL (8.4-10.2); CARBON DIOXIDE 26 mmol/L (22-29); CHLORIDE 107 mmol/L (98-107); CREATININE, SERUM 0.67 mg/dL (0.57-1.11); GLUCOSE 123 mg/dL (74-118); POTASSIUM 4.1 mmol/L (3.5-5.1); SODIUM 142 mmol/L (136-145)
[2023-01-21 10:17] LABS: INR 0.94; PROTHROMBIN TIME 13.1 seconds (11.9-14.5)
[2023-01-21 10:18] LABS: PARTIAL THROMBOPLASTIN TIME 27.7 seconds (23.8-35.5)
[2023-01-21] MEDS ORDERED: HYDROCODONE/APAP 5MG-325MG TAB PO ONE (10:45)
[2023-01-21 12:10] VITALS: BP 136/94
== END 2023-01-21 11:45 | disposition home or self-care (01) ==
LOC: ER 09:02
DX: R07.89 Other chest pain (principal); I10 Essential (primary) hypertension; E11.65 Type 2 diabetes mellitus with hyperglycemia; Z20.822 Contact with and (suspected) exposure to COVID-19
CPT/HCPCS: 36415; 71045; 80053; 83735; 84484; 84702; 85025; 85379; 85610; 85730; 93005; 99283; J1885; J7030; U0002

== ENCOUNTER 2023-03-15 21:43 | Emergency (ER) | payer OTHER ==
[~2023-03-15] VITALS: Ht 167.6 cm; Wt 122.5 kg
[2023-03-15 22:13] LABS: BASOPHILS # (AUTO) 0.1 (0.0-0.1); BASOPHILS % 0.5 % (0.0-1.0); EOSINOPHILS # (AUTO) 0.8 (0.0-0.4); EOSINOPHILS % 5.7 % (0.0-6.0); HEMATOCRIT 44.2 % (34.2-44.1); HEMOGLOBIN 14.1 g/dL (12.0-16.0); LYMPHOCYTES # (AUTO) 4.6 (1.0-3.2); LYMPHOCYTES % 34.1 % (18.0-39.1); MEAN CORPUSCULAR HEMOGLOBIN 27.2 pg (28-32); MEAN CORPUSCULAR HGB CONC 31.9 g/dL (31-35); MEAN CORPUSCULAR VOLUME 85.2 fL (81-99); MONOCYTES # (AUTO) 0.7 (0.2-0.8); MONOCYTES % 4.9 % (4.4-11.3); NEUTROPHILS # (AUTO) 7.3 (2.1-6.9); NEUTROPHILS % 54.4 % (38.7-80.0); PLATELET COUNT 399 x10e3/uL (140-360); RED BLOOD COUNT 5.19 x10e6/uL (3.6-5.1); RED CELL DISTRIBUTION WIDTH 13.2 % (11.7-14.4)
[2023-03-15 22:16] LABS: AMPHETAMINES SCREEN,URINE NEGATIVE (NEGATIVE); BENZODIAZEPINES SCREEN,URINE NEGATIVE (NEGATIVE); CLARITY,URINE CLEAR (CLEAR); COLOR,URINE YELLOW (YELLOW); KETONES,URINE NEGATIVE (NEGATIVE); LEUKOCYTE ESTERASE ,URINE NEGATIVE (NEGATIVE); NITRITE,URINE NEGATIVE (NEGATIVE); PHENCYCLIDINE SCREEN,URINE NEGATIVE (NEGATIVE); PROTEIN,URINE DIPSTICK NEGATIVE (NEGATIVE); URINE UROBILINOGEN 0.2 mg/dL (0.2 - 1)
[2023-03-15 22:22] LABS: BACTERIA,URINE FEW /HPF; EPITHELIAL CELLS,URINE RARE /LPF; WBC,URINE (MAN) 0-5 /HPF (0-5)
[2023-03-15 22:31] LABS: ALBUMIN 3.6 g/dL (3.5-5.0); ALBUMIN/GLOBULIN RATIO 0.9 (0.8-2.0); ANION GAP 20.2 mmol/L (8-16); CALCIUM 9.4 mg/dL (8.4-10.2); CREATININE, SERUM 0.8 mg/dL (0.57-1.11); POTASSIUM 4.2 mmol/L (3.5-5.1)
[2023-03-15] MEDS ORDERED: NAPROSYN500 MG PO (22:58)
[2023-03-15 23:22] VITALS: BP 143/100; PULSE 96; RESP 16; TEMP 98.7; O2SAT 97
== END 2023-03-15 23:25 | disposition home or self-care (01) ==
LOC: ER 21:47
DX: R06.00 Dyspnea, unspecified (principal); R07.89 Other chest pain; R00.0 Tachycardia, unspecified; E11.65 Type 2 diabetes mellitus with hyperglycemia; I10 Essential (primary) hypertension; R94.31 Abnormal electrocardiogram [ECG] [EKG]
CPT/HCPCS: 36415; 71045; 80053; 80307; 81001; 81025; 84484; 85025; 93005; 99284

== ENCOUNTER 2024-06-12 08:23 | Emergency (ER) | payer OTHER ==
[~2024-06-12] VITALS: Ht 167.6 cm; Wt 117.9 kg
[~2024-06-12 08:23] MED LIST changes: +CYCLOBENZAPRINE10 MG PO; +NAPROSYN500 MG PO
[2024-06-12 08:35] VITALS: TEMP 98.4
[2024-06-12] MEDS: PROMETHAZINE 12.5MG/ NACL 0.9% 12.5 MG/50 ML BAG IV ONE (09:46)
[2024-06-12] MEDS: SODIUM CHLORIDE 0.9% 1000ML 1,000 ML IV ONE (09:46)
[2024-06-12] MEDS: Morphine 4mg INJECTION 4 MG/ML INJ IV ONE (09:47)
[2024-06-12 09:52] LABS: BASOPHILS # (AUTO) 0.1 (0.0-0.1); BASOPHILS % 0.4 % (0.0-1.0); EOSINOPHILS # (AUTO) 0.9 (0.0-0.4); EOSINOPHILS % 6.4 % (0.0-6.0); HEMATOCRIT 46.7 % (34.2-44.1); LYMPHOCYTES # (AUTO) 3.4 (1.0-3.2); LYMPHOCYTES % 24.3 % (18.0-39.1); MEAN CORPUSCULAR HEMOGLOBIN 25.9 pg (28-32); MEAN CORPUSCULAR VOLUME 86.5 fL (81-99); MONOCYTES # (AUTO) 0.5 (0.2-0.8); MONOCYTES % 3.5 % (4.4-11.3); NEUTROPHILS # (AUTO) 8.8 (2.1-6.9); NEUTROPHILS % 63.9 % (38.7-80.0); PLATELET COUNT 357 x10e3/uL (140-360); RED CELL DISTRIBUTION WIDTH 13.9 % (11.7-14.4); WHITE BLOOD COUNT 13.84 x10e3/uL (4.8-10.8)
[2024-06-12 10:16] VITALS: PULSE 85; RESP 16; O2SAT 95
[2024-06-12 10:16] LABS: ALBUMIN 3.4 g/dL (3.5-5.0); ALBUMIN/GLOBULIN RATIO 1.1 (0.8-2.0); ANION GAP 12.3 mmol/L (8-16); BILIRUBIN,TOTAL 0.4 mg/dL (0.2-1.2); CALCIUM 7.6 mg/dL (8.4-10.2); CREATININE, SERUM 0.6 mg/dL (0.57-1.11); TOTAL PROTEIN 6.4 g/dL (6.5-8.1)
[2024-06-12 10:17] LABS: POTASSIUM 3.3 mmol/L (3.5-5.1)
[2024-06-12] MEDS ORDERED: IOPAMIDOL 370 MG/ML 100 ML INFUS..BTL INJ ONE (11:01)
[2024-06-12 11:58] LABS: CLARITY,URINE SL CLOUDY (CLEAR); COLOR,URINE YELLOW (YELLOW); GLUCOSE, URINE 500 (NEGATIVE); KETONES,URINE TRACE (NEGATIVE); LEUKOCYTE ESTERASE ,URINE NEGATIVE (NEGATIVE); NITRITE,URINE NEGATIVE (NEGATIVE); PH,URINE 5.5 (5 - 7); PROTEIN,URINE DIPSTICK NEGATIVE (NEGATIVE); URINE UROBILINOGEN 0.2 mg/dL (0.2 - 1)
[2024-06-12 11:59] LABS: BILIRUBIN,URINE NEGATIVE (NEGATIVE)
[2024-06-12 12:00] LABS: EPITHELIAL CELLS,URINE MODERATE /LPF
[2024-06-12 12:01] LABS: BACTERIA,URINE FEW /HPF
[2024-06-12 12:03] LABS: YEAST,URINE RARE
[2024-06-12 12:05] LABS: WBC,URINE (MAN) 0-5 /HPF (0-5)
[2024-06-12] MEDS ORDERED: PHENERGAN SUPP25 MG PR (12:46)
[2024-06-12] MEDS ORDERED: DEXAMETHASONE SOD PHOS 10 MG/1 ML VIAL ONE (12:48)
[2024-06-12 13:05] VITALS: BP 126/86; PULSE 86; RESP 18; TEMP 98.2
== END 2024-06-12 13:08 | disposition home or self-care (01) ==
LOC: ER 08:50
DX: R10.12 Left upper quadrant pain (principal); R11.2 Nausea with vomiting, unspecified; R19.7 Diarrhea, unspecified; I10 Essential (primary) hypertension; E11.9 Type 2 diabetes mellitus without complications
CPT/HCPCS: 36415; 74177; 80053; 81001; 83690; 84702; 85025; 93005; 99284; J1100; J2270; J2550; J7030; Q9967